=== PATIENT | male | born 1960 | race Caucasian/White ===

== ENCOUNTER 2021-03-11 08:38 | Outpatient (REF) | payer OTHER, SELFPAY ==
[2021-03-11 11:06] LABS: Glucose Urine UA NEG (NEG); Leukocyte Esterase Urine NEG (NEG); Nitrite Urine NEG (NEG); Urine Blood NEG (NEG); Urine Ketones NEG (NEG); Urine Protein NEG (NEG-TRACE)
[2021-03-11 11:17] LABS: Alanine Aminotransferase 19 U/L (0-40); Albumin Level 4.3 g/dL (3.5-5.0); Alkaline Phosphatase 42 U/L (39-117); Anion Gap 13 (12-20); Appearance Urine CLEAR; Aspartate Amino Transferase 18 U/L (5-37); Bilirubin Total 0.7 mg/dL (0.0-1.0); Blood Urea Nitrogen 18 mg/dL (9-16); Calcium 9.1 mg/dL (8.4-10.2); Carbon Dioxide 28 mmol/L (22-29); Chloride 103 mmol/L (96-108); Cholesterol 152 mg/dL; Color Urine YELLOW; Estimated Glomerular Filt Rate > 60; Glucose Fasting 103 mg/dL (60-99); HDL Cholesterol 40 mg/dL; LDL Cholesterol Calculated 79 mg/dl; Potassium 4.7 mmol/L (3.3-5.1); Sodium 139 mmol/L (135-145); Total Protein 6.6 g/dL (6.5-8.0); Triglycerides 166 mg/dL
[2021-03-11 11:46] LABS: TSH reflex Free T4 1.25 uIU/mL (0.32-4.0)
[2021-03-11 12:34] LABS: Prostate Specific Antigen Scr 0.25 ng/mL (<0.05-4.0)
== END 2021-03-11 08:39 | disposition home or self-care (01) ==
LOC: HO.WFDLDS 08:38
PROVIDERS: Visit Provider Family Medicine
DX: Z00.00 Encounter for general adult medical examination without abnormal findings (principal); Z12.5 Encounter for screening for malignant neoplasm of prostate; I10 Essential (primary) hypertension
CPT/HCPCS: 36415; 80053; 80061; 81003; 82043; 84153; 84443

== ENCOUNTER 2021-07-08 07:34 | Outpatient (REF) | payer OTHER, SELFPAY ==
[2021-07-08 12:05] LABS: Anion Gap 12 (12-20); Blood Urea Nitrogen 11 mg/dL (9-16); Calcium 9.2 mg/dL (8.4-10.2); Carbon Dioxide 26 mmol/L (22-29); Chloride 105 mmol/L (96-108); Cholesterol 138 mg/dL; Estimated Glomerular Filt Rate > 60; Glucose Fasting 109 mg/dL (60-99); HDL Cholesterol 33 mg/dL; LDL Cholesterol Calculated 85 mg/dl; Potassium 4.4 mmol/L (3.3-5.1); Sodium 139 mmol/L (135-145); Triglycerides 104 mg/dL
== END 2021-07-08 07:35 | disposition home or self-care (01) ==
LOC: HO.WFDLDS 07:34
PROVIDERS: Visit Provider Family Medicine
DX: E78.5 Hyperlipidemia, unspecified (principal); R73.01 Impaired fasting glucose
CPT/HCPCS: 36415; 80048; 80061

== ENCOUNTER 2022-01-21 07:40 | Outpatient (REF) | payer OTHER, SELFPAY ==
[2022-01-21 11:46] LABS: Alanine Aminotransferase 18 U/L (0-40); Albumin Level 4.1 g/dL (3.5-5.0); Alkaline Phosphatase 40 U/L (39-117); Anion Gap 11 (12-20); Aspartate Amino Transferase 16 U/L (5-37); Bilirubin Total 0.4 mg/dL (0.0-1.0); Blood Urea Nitrogen 14 mg/dL (9-16); Carbon Dioxide 25 mmol/L (22-29); Chloride 106 mmol/L (96-108); Cholesterol 138 mg/dL; Estimated Glomerular Filt Rate > 60; Glucose Random 114 mg/dL (60-115); HDL Cholesterol 37 mg/dL; LDL Cholesterol Calculated 85 mg/dl; Potassium 4.5 mmol/L (3.3-5.1); Sodium 137 mmol/L (135-145); Total Protein 6.6 g/dL (6.5-8.0); Triglycerides 81 mg/dL
[2022-01-21 12:00] LABS: Estimated Average Glucose 111 mg/dL; Hemoglobin A1C 137.0752 umol/L; Hemoglobin A1c % 5.5 %
== END 2022-01-21 07:41 | disposition home or self-care (01) ==
LOC: HO.WFDLDS 07:40
PROVIDERS: Visit Provider Family Medicine
DX: Z00.00 Encounter for general adult medical examination without abnormal findings (principal); E78.1 Pure hyperglyceridemia; E78.5 Hyperlipidemia, unspecified; R73.01 Impaired fasting glucose
CPT/HCPCS: 36415; 80053; 80061; 83036

== ENCOUNTER 2022-06-05 15:44 | Outpatient (REF) | payer OTHER, SELFPAY ==
[2022-06-05 18:00] LABS: Appearance Urine Clear; Color Urine Yellow; Glucose Urine UA Negative (Negative); Leukocyte Esterase Urine Negative (Negative); Nitrite Urine Negative (Negative); PH 6.5 (5.0-9.0); Specific Gravity - Urine 1.015 (1.005-1.025); Urine Blood Negative (Negative); Urine Ketones Negative (Negative); Urine Protein Negative (Neg-Trace)
== END 2022-06-05 15:45 | disposition home or self-care (01) ==
LOC: HO.LAB 15:44
PROVIDERS: Visit Provider Family Medicine
DX: Z00.00 Encounter for general adult medical examination without abnormal findings (principal); R30.0 Dysuria; R35.0 Frequency of micturition
CPT/HCPCS: 81003; 87086

== ENCOUNTER 2022-10-20 10:12 | Outpatient (REF) | payer OTHER, SELFPAY ==
[2022-10-20 11:14] LABS: MANUAL DIFF FLAG NO
[2022-10-20 11:44] LABS: Basophils Absolute Auto 0.1 X10*3/uL (0.0-0.2); Basophils Percent Auto 0.9 % (0-2); Eosinophils Absolute Auto 0.1 X10*3/uL (0.0-0.4); Eosinophils Percent Auto 1.4 % (0-4); Hematocrit 43.4 % (42.0-52.0); Hemoglobin 14.5 g/dl (14.0-18.0); Imm Gran Abs Auto 0.01 X10*3/uL (0.00-0.03); Imm Gran Pct Auto 0.2 % (0.0-0.4); Lymphocytes Absolute Auto 1.4 X10*3/uL (1.2-4.9); Lymphocytes Percent Auto 25.4 % (20-40); Mean Corpuscular HGB Conc 33.4 g/dl (31.0-36.0); Mean Corpuscular Hemoglobin 30.1 pg (27.0-33.0); Mean Corpuscular Volume 90.2 fL (80.0-98.0); Mean Platelet Volume 11.1 fL (9.4-12.4); Monocytes Absolute Auto 0.4 X10*3/uL (0.1-1.2); Monocytes Percent Auto 6.9 % (2-11); Neutrophils Absolute Auto 3.7 x10*3/uL (2.0-8.3); Neutrophils Percent Auto 65.2 % (45-73); Platelet Count 206 X10*3/uL (160-400); Red Blood Count 4.81 X10*6/uL (4.60-5.80); Red Cell Distribution Width 12.5 % (11.0-16.0); White Blood Count 5.6 X10*3/uL (4.8-10.8)
[2022-10-20 12:19] LABS: Alanine Aminotransferase 30 U/L (0-40); Albumin Level 4.3 g/dL (3.5-5.0); Alkaline Phosphatase 42 U/L (39-117); Anion Gap 12 (12-20); Aspartate Amino Transferase 20 U/L (5-37); Bilirubin Total 0.4 mg/dL (0.0-1.0); Blood Urea Nitrogen 13 mg/dL (9-16); Calcium 9.3 mg/dL (8.4-10.2); Carbon Dioxide 28 mmol/L (22-29); Chloride 103 mmol/L (96-108); Cholesterol 175 mg/dL; Estimated Glomerular Filt Rate > 60; Glucose Fasting 94 mg/dL (60-99); HDL Cholesterol 39 mg/dL; LDL Cholesterol Calculated 101 mg/dl; Potassium 4.1 mmol/L (3.3-5.1); Sodium 139 mmol/L (135-145); Total Protein 6.6 g/dL (6.5-8.0); Triglycerides 178 mg/dL
[2022-10-20 12:20] LABS: Prostate Specific Antigen Scr 0.63 ng/mL (<0.05-4.0); TSH reflex Free T4 1.53 uIU/mL (0.32-4.0)
[2022-10-20 15:02] LABS: Creatinine Urine 76.21 mg/dL; Microalbum/Creatinine Ratio Ur 7.8 ug/mg cr
== END 2022-10-20 10:13 | disposition home or self-care (01) ==
LOC: HO.WFDLDS 10:12
PROVIDERS: Visit Provider Family Medicine
DX: Z00.00 Encounter for general adult medical examination without abnormal findings (principal); Z12.5 Encounter for screening for malignant neoplasm of prostate; I10 Essential (primary) hypertension
CPT/HCPCS: 36415; 80053; 80061; 82043; 84153; 84443; 85025

== ENCOUNTER 2023-02-25 08:20 | Outpatient (REF) | payer OTHER, SELFPAY ==
[2023-02-25 11:17] LABS: MANUAL DIFF FLAG NO
[2023-02-25 11:43] LABS: Basophils Percent Auto 0.7 % (0-2); Eosinophils Absolute Auto 0.1 X10*3/uL (0.0-0.4); Eosinophils Percent Auto 2.1 % (0-4); Hematocrit 40.6 % (42.0-52.0); Hemoglobin 13.4 g/dl (14.0-18.0); Imm Gran Abs Auto 0.01 X10*3/uL (0.00-0.03); Imm Gran Pct Auto 0.2 % (0.0-0.4); Lymphocytes Absolute Auto 1.4 X10*3/uL (1.2-4.9); Mean Corpuscular Hemoglobin 30.5 pg (27.0-33.0); Mean Corpuscular Volume 92.5 fL (80.0-98.0); Mean Platelet Volume 11.4 fL (9.4-12.4); Monocytes Absolute Auto 0.5 X10*3/uL (0.1-1.2); Monocytes Percent Auto 9.4 % (2-11); Neutrophils Absolute Auto 3.7 x10*3/uL (2.0-8.3); Neutrophils Percent Auto 63.6 % (45-73); Platelet Count 205 X10*3/uL (160-400); Red Blood Count 4.39 X10*6/uL (4.60-5.80); Red Cell Distribution Width 12.5 % (11.0-16.0); White Blood Count 5.7 X10*3/uL (4.8-10.8)
[2023-02-25 12:06] LABS: Anion Gap 11 (12-20); Blood Urea Nitrogen 13 mg/dL (9-16); Calcium 9.2 mg/dL (8.4-10.2); Carbon Dioxide 27 mmol/L (22-29); Chloride 106 mmol/L (96-108); Estimated Glomerular Filt Rate > 60; Glucose Random 118 mg/dL (60-115); Potassium 3.7 mmol/L (3.3-5.1); Sodium 140 mmol/L (135-145)
== END 2023-02-25 08:21 | disposition home or self-care (01) ==
LOC: HO.WFDLDS 08:20
PROVIDERS: Visit Provider Nurse Practitioner Family
DX: K92.1 Melena (principal); R10.9 Unspecified abdominal pain
CPT/HCPCS: 36415; 80048; 85025

== ENCOUNTER 2023-03-03 07:48 | Outpatient (REF) | payer OTHER, SELFPAY ==
[2023-03-03 11:38] LABS: Hematocrit 42.1 % (42.0-52.0); Mean Corpuscular HGB Conc 33.3 g/dl (31.0-36.0); Mean Corpuscular Hemoglobin 30.4 pg (27.0-33.0); Mean Corpuscular Volume 91.5 fL (80.0-98.0); Platelet Count 215 X10*3/uL (160-400); Red Cell Distribution Width 12.7 % (11.0-16.0); White Blood Count 5.7 X10*3/uL (4.8-10.8)
== END 2023-03-03 07:49 | disposition home or self-care (01) ==
LOC: HO.WFDLDS 07:48
PROVIDERS: Visit Provider Nurse Practitioner Family
DX: K92.1 Melena (principal)
CPT/HCPCS: 36415; 85027

== ENCOUNTER → 2023-03-20 12:43 | Outpatient (BNVA) | payer OTHER, SELFPAY | PROVIDERS: PCP Family Medicine; Visit Provider Internal Medicine | DX: K92.1 Melena (principal) | CPT/HCPCS: 99202 ==

== ENCOUNTER 2023-04-21 07:37 | Outpatient (REF) | payer OTHER, SELFPAY ==
[2023-04-21 12:32] LABS: Appearance Urine Clear; Color Urine Dark Yellow; Glucose Urine UA Negative (Negative); Leukocyte Esterase Urine Negative (Negative); Nitrite Urine Negative (Negative); PH 7.5 (5.0-9.0); Urine Blood Negative (Negative); Urine Ketones Negative (Negative); Urine Protein Negative (Neg-Trace)
[2023-04-21 12:47] LABS: Alanine Aminotransferase 21 U/L (0-40); Albumin Level 4.1 g/dL (3.5-5.0); Alkaline Phosphatase 38 U/L (39-117); Anion Gap 12 (12-20); Aspartate Amino Transferase 19 U/L (5-37); Bilirubin Total 0.3 mg/dL (0.0-1.0); Blood Urea Nitrogen 13 mg/dL (9-16); Calcium 9.5 mg/dL (8.4-10.2); Carbon Dioxide 26 mmol/L (22-29); Chloride 103 mmol/L (96-108); Estimated Glomerular Filt Rate > 60; Glucose Fasting 109 mg/dL (60-99); Sodium 137 mmol/L (135-145); Total Protein 6.9 g/dL (6.5-8.0)
[2023-04-21 12:59] LABS: Prostate Specific Antigen Scr 0.25 ng/mL (<0.05-4.0)
[2023-04-21 13:02] LABS: TSH reflex Free T4 1.99 uIU/mL (0.32-4.0)
== END 2023-04-21 07:38 | disposition home or self-care (01) ==
LOC: HO.WFDLDS 07:37
PROVIDERS: Visit Provider Family Medicine
DX: Z00.00 Encounter for general adult medical examination without abnormal findings (principal); Z12.5 Encounter for screening for malignant neoplasm of prostate
CPT/HCPCS: 36415; 80053; 81003; 84153; 84443

== ENCOUNTER 2023-04-22 15:53 | Outpatient (AMB) | payer OTHER, SELFPAY ==
[2023-04-22 15:59] VITALS: BP 140/78; PULSE 96; O2SAT 96; BMI 29.0
--- NOTE | 2023-04-22 15:59 | A.OFFPC_ITS ---
Vital Signs 04/22/23 15:59 Height 5 ft 10 in Weight 202 lb 6 oz BMI 29.0 BP 140/78 H Blood Pressure Location Lt brachial Position Sitting Pulse 96 Pulse Source Pulse Oximeter Pulse Oximetry (%) 96 Oxygen Delivery Method Room Air Intake Visit Reasons: Extended exam with f/u labs and health maint. Intake Note: Patient is here for a physical and to follow up on labs. Allergies No Known Allergies Allergy (Verified 04/22/23 16:02) Medication List - Last Reconciled 04/22/23 by Poncho Herbert MD clotrimazole 1% (Antifungal (clotrimazole)) 1 appl topical BID 2 weeks diclofenac sodium 1% (Voltaren Arthritis Pain) 2 grams topical QID lidocaine HCl-hydrocortison ac 3-0.5 % 1 appl DC BEDTIME lisinopril 5 mg PO DAILY 90 days naproxen 500 mg PO BID PRN 90 days omeprazole 20 mg PO DAILY 30 days polyethylene glycol 3350 (Miralax) 17 grams PO BID simvastatin 40 mg PO BEDTIME Tobacco use date assessed: 04/22/23 Dental Screening Dental Screen Date: 04/22/23 Did you have a dental visit in the last 12 months?: Yes Did you have a dental problem in the last 6 months where you did not have access to dental care?: No Was dental information given to patient?: No HPI Extended exam with f/u labs and health maint. HPI Details 63 y/o male presents for an extended exam with f/u labs and health maintenance. Labs were drawn 04/21/23. Reviewed labs with pt. Elevated fasting glucose of 109. Last A1c 01/21/22 was 5.5%. PSA fine. TSH levels are fine. Pt reports he has improved his diet and has been walking more for exercise. HPI Comments History of Present Illness Details Documentation assistance for Poncho Herbert MD, was provided by Christiano Pantoja, Social Media Marketing Specialist on 04/22/2023 4:45 PM MONIQUE. I, Dr. Herbert, have read, observed, and verified documentation. [facility] Surgical History H/O colonoscopy History of back surgery History of hernia surgery History of knee surgery History of surgery on arm Family History Father No problems noted. Mother No problems noted. 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 Mina Conway, Jayde Streeter, Celso Johnson and colleagues, with an educational margarita from [employer]. Review of Systems Const Denies chills, Denies fatigue, Denies fever(s), Denies headache(s) and Denies weakness Eyes Denies change in vision ENT Denies dizziness, Denies headache(s), Denies hearing loss, Denies nasal congestion, Denies sinus pain, Denies sinus pressure and Denies sore throat Card Denies chest pain, Denies lightheadedness, Denies dyspnea and Denies other (palpitations) Resp Denies cough, Denies dyspnea and Denies wheezing GI Denies abdominal pain, Denies melena, Denies hematochezia, Denies change in bowel habits, Denies dyspepsia and Denies nausea Denies hematuria and Denies dysuria Musc Denies abnormal gait, Denies myalgias, Denies arthralgias, Denies numbness and Denies tingling Skin/Breast Denies rash, Denies unusual bruising and Denies wounds Neuro Denies abnormal gait, Denies dizziness, Denies headache(s), Denies memory loss, Denies numbness, Denies Sensory deficit (Neuro), Denies tingling and Denies weakness Psych Denies anxiety, Denies depression and Denies memory loss Endo Denies cold intolerance, Denies fatigue, Denies heat intolerance, Denies polydi psia and Denies polyuria Alexandre/Lymph Denies easy bleeding and Denies easy bruising Aller/Immun Denies wheezing Physical exam (Primary Care) Vital Signs: Last Vital Signs Pulse 96 04/22/23 15:59 BP 140/78 H 04/22/23 15:59 Pulse Ox 96 04/22/23 15:59 Oxygen Delivery Method Room Air 04/22/23 15:59 BMI result Body Mass Index 29.0 Tobacco/Smoking Status: Tobacco use Status Tobacco use date assessed 04/22/23 04/22/23 16:04 Patient Tobacco Use Status Former Tobacco user 04/22/23 16:01 e-Cigarette/Vaping Use Never Used 04/22/23 16:01 Thrive Assessment: Date of Thrive Assessment Date Thrive assessed 10/23/22 04/22/23 16:01 Const General: no acute distress, well developed, alert and awake Nutritional Appearance: well nourished Orientation/consciousness: patient oriented x3 HENMT Head: Yes normocephalic and Yes atraumatic Ears: hearing grossly normal bilaterally and TM's normal bilaterally General nose exam: Normal external nose present and Normal nares present Mouth: Normal oral and palatal mucosa present and moist mucous membranes Teeth and gingiva: dentition normal Throat: Yes posterior oropharynx normal Eyes General: appearance normal, both eyes and all related structures Pupils: Equal, round and reactive pupils present and Pupil accommodation reflex normal EOM: EOMs intact bilaterally Neck Neck: Yes normal visual inspection, Yes no lymphadenopathy and Yes trachea midline Thyroid: Thyroid normal Carotids: no bruits Lymphatic: no lymphadenopathy noted Chest Chest palpation & inspection: normal inspection of the chest Resp Effort & Inspection: normal respiratory effort Auscultation: clear to auscultation bilaterally Cardio Rate: regular rate Rhythm: regular rhythm Heart sounds: S1 normal heart sound present, S2 normal heart sound present, no gallops, no murmurs and no rubs Bruits: no abdominal aortic bruits and no carotid bruits GI Palpation (GI): No Abdominal aortic bruit present, Soft to palpation, nontender, No hepatosplenomegaly present and No Rebound tenderness present Auscultation: normal bowel sounds General: Yes no CVA tenderness Back/Spine/Pelvis Back: no CVA tenderness Cervical Spine: cervical ROM normal and No Cervical spine tenderness Thoracic/Lumbar Spine: thoraco-lumbar ROM normal, No pain with thoraco-lumbar ROM, No thoracic spinal tenderness and No lumbar spinal tenderness Skin Lesions: no lesions Rashes: no rashes Trauma: no lacerations or abrasions Wounds: no wounds Nails: normal Neuro General: patient oriented x3 Cranial nerves: Yes Equal, round and reactive pupils present Cognition (Neuro): normal cognition Gait exam (Neuro): Normal gait present Motor exam (neuro): 5/5 motor strength present throughout Sensory Exam: No Sensory deficit (Neuro) Deep tendon reflexes (DTR's): Right patellar reflex intensity grade: 2+ and Left patellar reflex intensity grade: 2+ Extrem General: Yes normal to inspection and No edema Psych Appearance: grossly normal Affect: normal affect Attitude: cooperative Thought process: Normal thought process present Assessment and Plan Assessment & Plan (1) Annual physical exam: Code(s): Z00.00 - Encounter for general adult medical examination without abnormal findings Plan: 63-year-old male presents for complete physical exam Encouraged a healthy diet with active lifestyle and plenty of exercise (2) Essential hypertension: Code(s): I10 - Essential (primary) hypertension Plan: Blood pressures have been elevated. Goal is less than 140/90 Increase lisinopril from 5 mg daily to 10 mg daily Encouraged ongoing weight loss and exercise. Encouraged salt/sodium avoidance (3) Screening for prostate cancer: Code(s): Z12.5 - Encounter for screening for malignant neoplasm of prostate Plan: PSA was within normal limits (4) Elevated fasting blood sugar: Code(s): R73.01 - Impaired fasting glucose Plan: A1c 5.6% is at top normal range. Strong family history of diabetes Continue to work at a diet lower in sugars and starches. Continue weight loss and exercise Will follow (5) Screening for colon cancer: Code(s): Z12.11 - Encounter for screening for malignant neoplasm of colon Plan: Followed by Gastroenterology, Dr. Sims Medications: Changed From lisinopril 5 mg PO DAILY 90 tabs 3RF 90 days To lisinopril 10 mg PO DAILY 90 tabs 3RF 90 days From diclofenac sodium 1% (Voltaren Arthritis Pain) apply to single elbow, wrist or hand; for hand includes palm/fingers/back of hand 2 grams topical QID To diclofenac sodium 1% (Voltaren Arthritis Pain) apply to single elbow, wrist or hand; for hand includes palm/fingers/back of hand 2 grams topical QID 200 grams 3RF 30 days Refilled clotrimazole 1% (Antifungal (clotrimazole)) 1 appl topical BID 60 grams 2RF 2 weeks Coding Level of Care Code Est Pt Level 4 (99093) Diagnoses Annual physical exam Z00.00 Essential hypertension I10 Screening for prostate cancer Z12.5 Elevated fasting blood sugar R73.01 Screening for colon cancer Z12.11
== END 2023-04-22 16:58 | disposition home or self-care (01) ==
PROVIDERS: Visit Provider Family Medicine
DX: Z00.00 Encounter for general adult medical examination without abnormal findings (principal); I10 Essential (primary) hypertension; Z12.5 Encounter for screening for malignant neoplasm of prostate; R73.01 Impaired fasting glucose; Z12.11 Encounter for screening for malignant neoplasm of colon
CPT/HCPCS: 99396

== ENCOUNTER 2023-05-19 11:07 | Outpatient (AMB) | payer OTHER, SELFPAY ==
[2023-05-19 11:21] VITALS: BP 162/86; BMI 28.5
--- NOTE | 2023-05-19 11:21 | A.OFFVIS_ITS ---
Intake Vital Signs 05/19/23 11:21 Height 5 ft 10 in Weight 198 lb 13.711 oz BMI 28.5 BP 162/86 H Blood Pressure Location Lt brachial Position Sitting Intake Visit Reasons: 4 week fu Intake Note: Patient presents to in office visit today in follow up of melena and abdominal pain. CC: Patient reports the abdominal pain and rectal bleeding subsided about 2 weeks ago. Denies any new GI symptoms or concerns today. Manager State Required: No Allergies No Known Allergies Allergy (Verified 05/19/23 11:24) HPI HPI Comments History of Present Illness Details 62 y.o M with no significant PMH who has been referred to our office for rectal bleeding. 03/20/23: Reports rectal bleeding started last month out of nowhere. Knew had hemorrhoid flare up - which he describes as swollen tissue that prolapses occasionally and is a bit uncomfortable while defecation. BM itself is brown but often has some blood on top. Last colo was around 2019. Pt thinks at [facility]. No polyps but was asked to return in 5years due to possible hx of advanced polyps in mother. Pt reports his mom had a partial colon resection but hes unsure if that was done for diverticulitis or large polyps. Had lower abd cramping for a couple of days which has since resolved. His only w orry is that his hemorrhoids have never bled for this long. CBC from 2 weeks was normal. 05/19/23: Sx compeletely resolved within a week of improving hydration + fiber and starting topical hydrocort. Has not had any bleeding or rectal discomfort in the last 3 weeks. Records from [facility] reviewed - MRI 2018 with liver cysts including a 2.1 cm septated cyst in R liver lobe. PFSH Surgical History H/O colonoscopy History of back surgery History of hernia surgery History of knee surgery History of surgery on arm Family History Father No problems noted. Mother No problems noted. 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) Current occupational exposures/hazards: No Cognitive needs: No Hearing needs: No Vision needs: No Review of Systems Const All systems reviewed & are unremarkable except as noted in HPI and below Physical Exam Vital Signs: Last Vital Signs BP 162/86 H 05/19/23 11:21 BMI result Body Mass Index 28.5 Gen appear: NAD HEENT: nonicteric, no cervical lymphadenopathy Chest: CTA CVS: Regular S1/S2 Abd: soft, nontender, nondistended, bowel sounds + Ext: no peripheral edema Neuro: A/Ox3, noted to move all extremities spontaneously Psych: interacting appropriately Assessment & Plan Assessment & Plan (1) Blood in stool: Code(s): K92.1 - Melena (2) Liver cyst: Code(s): K76.89 - Other specified diseases of liver Plan Clinical presentation and assessment most consistent with hemorrhoidal bleeding that has resolved with topical hydrocort application, and avoiding constipation. Due for colo for hx of polyps in 2023 per his report. Will obtain records from [facility]. He was also reminded that he is due for surveillance imaging for septated liver cyst noted in 2018 (incidental finding, pt remains asymptomatic) Recommendation: - Obtain prev colo records from [facility], will call pt if actionable finding otherwise colo in 2023 - MRI Abd liver protocol ordered - Follow up in 6 months Coding Level of Care Code Est Pt Level 4 (65852) Diagnoses Blood in stool K92.1 Liver cyst K76.89
== END 2023-05-19 11:56 | disposition home or self-care (01) ==
PROVIDERS: PCP Family Medicine; Visit Provider Internal Medicine
DX: K92.1 Melena (principal); K76.89 Other specified diseases of liver
CPT/HCPCS: 99214

== ENCOUNTER → 2023-05-19 11:07 | Outpatient (BNVA) | payer OTHER, SELFPAY | PROVIDERS: PCP Family Medicine; Visit Provider Internal Medicine | DX: K92.1 Melena (principal); K76.89 Other specified diseases of liver | CPT/HCPCS: 99212 ==

== ENCOUNTER 2023-06-08 15:51 | Outpatient (REF) | payer OTHER, SELFPAY ==
--- NOTE | ~2023-06-08 | MR_ITS ---
EXAMINATION: MR ABDOMEN WITHOUT AND WITH CONTRAST CLINICAL INFORMATION: Liver disease. COMPARISON: None available. TECHNIQUE: MR abdomen was performed without and with use of 10 mL intravenous Gadavist gadolinium contrast. Postcontrast images are performed in multiphase dynamic sequences. Imaging was performed in 3 planes. FINDINGS: LUNG BASES: No pleural or pericardial effusion. LIVER, GALLBLADDER, AND BILIARY TREE: The liver is normal in size and contour. Hepatic steatosis. There are multiple T2 hyperintense T1 hypointense foci scattered throughout the hepatic parenchyma with the largest measuring 1.7 cm and the left hepatic lobe and 2.0 cm in the right hepatic lobe. No significant postcontrast enhancement. No further imaging follow-up is needed. The common duct measures 4 mm at the dayana hepatis. No biliary ductal dilatation is present. The gallbladder is unremarkable with no evidence of gallbladder wall thickening, or obvious pericholecystic inflammatory changes. PANCREAS: No ductal dilatation. SPLEEN: Not enlarged. ADRENAL GLANDS: No adrenal mass. KIDNEYS AND URETERS: The kidneys are symmetric in size and enhancement. No hydronephrosis. No perinephric stranding. GASTROINTESTINAL TRACT: No bowel obstruction. No ascites or fluid collection. LYMPH NODES: No bulky abdominal lymphadenopathy. VASCULAR: Normal caliber abdominal aorta. MR/MR abdomen wo/w con IMPRESSION: Hepatic steatosis.
[2023-06-08] MEDS: gadobutroL 10 ML VIAL IVPUSH (16:58)
== END 2023-06-08 15:52 | disposition home or self-care (01) ==
LOC: HO.MRI 15:51
PROVIDERS: PCP Family Medicine; Visit Provider Internal Medicine
DX: K76.89 Other specified diseases of liver (principal); N28.1 Cyst of kidney, acquired
CPT/HCPCS: 74183; A9585

== ENCOUNTER 2023-10-01 09:12 | Outpatient (REF) | payer OTHER, SELFPAY ==
[2023-10-01 12:15] LABS: Estimated Average Glucose 105 mg/dL; Hemoglobin A1c % 5.3 % (<6.0)
[2023-10-01 13:01] LABS: Creatinine Urine 200.88 mg/dL; Microalbum/Creatinine Ratio Ur 6.4 ug/mg cr (<30)
[2023-10-01 13:03] LABS: Alanine Aminotransferase 16 U/L (0-40); Albumin Level 4.2 g/dL (3.5-5.0); Alkaline Phosphatase 37 U/L (39-117); Anion Gap 11 (12-20); Aspartate Amino Transferase 18 U/L (5-37); Bilirubin Total 0.4 mg/dL (0.0-1.0); Blood Urea Nitrogen 14 mg/dL (9-16); Calcium 8.9 mg/dL (8.4-10.2); Carbon Dioxide 25 mmol/L (22-29); Chloride 106 mmol/L (96-108); Estimated Glomerular Filt Rate > 60; Glucose Fasting 112 mg/dL (60-99); Potassium 3.4 mmol/L (3.3-5.1); Sodium 139 mmol/L (135-145)
== END 2023-10-01 09:13 | disposition home or self-care (01) ==
LOC: HO.WFDLDS 09:12
PROVIDERS: Visit Provider Family Medicine
DX: Z00.00 Encounter for general adult medical examination without abnormal findings (principal); I10 Essential (primary) hypertension; R73.01 Impaired fasting glucose
CPT/HCPCS: 36415; 80053; 82043; 82570; 83036

== ENCOUNTER 2023-10-06 11:17 | Outpatient (AMB) | payer OTHER, SELFPAY ==
[2023-10-06 11:26] VITALS: BP 142/78; PULSE 90; O2SAT 97; BMI 28.6
--- NOTE | 2023-10-06 11:26 | A.OFFPC_ITS ---
Vital Signs 10/06/23 11:26 Height 5 ft 10 in Weight 199 lb 6 oz BMI 28.6 BP 142/78 H Blood Pressure Location Lt brachial Position Sitting Pulse 90 Pulse Source Pulse Oximeter Pulse Oximetry (%) 97 Oxygen Delivery Method Room Air Intake Visit Reasons: FUP HTN+ NEEDS DEAN9 Shankar/ INTERPRETATION Intake Note: Patient is here for follow up on hypertension. Patient needs referral for orthopedic surgeon for right knee. Allergies No Known Allergies Allergy (Verified 10/06/23 11:30) Tobacco use date assessed: 10/06/23 Dental Screening Dental Screen Date: 10/06/23 Did you have a dental visit in the last 12 months?: Yes Did you have a dental problem in the last 6 months where you did not have access to dental care?: No Was dental information given to patient?: Patient has dentist HPI FUP HTN+ NEEDS DEAN9 Shankar/ INTERPRETATION HPI Details 63 y/o male presents to f/u hypertension . Blood pressure today 142/78. He is on lisinopril 10mg daily. Pt has complaints of R knee pain and is requesting referral for an orthopedic surgeon. Pt reports hx of osteoarthritis and last x-ray was 4-5 years ago. Pt reports some fatigue. PFSH Surgical History H/O colonoscopy History of surgery on arm History of hernia surgery History of knee surgery History of back surgery Family History Father No problems noted. Mother No problems noted. 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 1. Little interest or pleasure in doing things: not at all 2. Feeling down, depressed, or hopeless: not at all 3. Trouble falling or staying asleep, or sleeping too much: not at all 4. Feeling tired or having little energy: not at all 5. Poor appetite or overeating: not at all 6. Feeling bad about yourself - or that you are a failure or have let yourself or your family down: not at all 7. Trouble concentrating on things, such as reading the newspaper or watching television: not at all 8. Moving or speaking so slowly that other people could have noticed. Or the opposite - being so fidgety or restless that you have been moving around a lot more than usual: not at all 9. Thoughts that you would be better off or of hurting yourself in some way: not at all Total score: 0 Depression Screening Interpretation: Negative Depression Screening Done: Yes 50941 - PHQ-9 Billing: Yes Source: Developed by Drs. Mina Conway, Jayde Streeter, Celso Johnson and colleagues, with an educational margarita from [email or web address]. Thrive Questionnaire Date Thrive assessed: 10/23/22 JAMARI-7 AMB Questionnaire JAMARI-7 Date JAMARI - 7 assessed: 10/23/22 Source: Developed by Drs. Mina Conway, Jayde Streeter, Celso Johnson and colleagues, with an educational margarita from [email or web address]. Review of Systems Const Reports fatigue Endo Reports fatigue Physical exam (Primary Care) Vital Signs: Last Vital Signs Pulse 90 10/06/23 11:26 BP 142/78 H 10/06/23 11:26 Pulse Ox 97 10/06/23 11:26 Oxygen Delivery Method Room Air 10/06/23 11:26 BMI result Body Mass Index 28.6 Tobacco/Smoking Status: Tobacco use Status Tobacco use date assessed 10/06/23 10/06/23 11:37 Patient Tobacco Use Status Former Tobacco user 10/06/23 11:37 e-Cigarette/Vaping Use Never Used 10/06/23 11:37 PHQ-9: PHQ-9 Score PHQ-9: Total score 0 10/06/23 11:37 Depression Screening Interpretation: Negative Thrive Assessment: Date of Thrive Assessment Date Thrive assessed 10/23/22 10/06/23 11:37 Extrem Other: R knee swelling, effusion and pain No redness, no warmth Assessment and Plan Assessment & Plan (1) Essential hypertension: Code(s): I10 - Essential (primary) hypertension Plan: Blood?pressure?is?still?above?goal?of?less?than?140/90 Changing?lisinopril?10?mg?daily?to?lisinopril- hydrochlorothiazide?10/12.5?mg?daily Continue?to?work?at?weight?loss Watch?salt/sodium (2) Right knee pain: Code(s): M25.561 - Pain in right knee Plan: Right?knee?pain?and?effusion?without?excess?warmth?or?redness. He?notes?a?history?of?osteoarthritis?and?injection?therapy?which?had?helped. Referred?to?orthopedics?at?[facility] X-rays?ordered Continue?Voltaren?gel?and?can?use?naproxen?as?tolerated (3) Fatigue: Code(s): R53.83 - Other fatigue Orders: Orders XR knee RT 3V Today M25.561 - Pain in right knee Comprehensive [place]. Panel Fast Today R53.83 - Other fatigue, Z00.00 - Encounter for general adult medical examination without abnormal findings Testosterone, Free/Total Today R53.83 - Other fatigue TSH reflex Free T4 Today R53.83 - Other fatigue, Z00.00 - Encounter for general adult medical examination without abnormal findings Referrals Orthopedics Referral M25.561 - Pain in right knee Medications: New lisinopril-hydrochlorothiazide 10-12.5 mg 1 tab PO DAILY 30 days 30 tabs 2RF Refilled diclofenac sodium 1% (Voltaren Arthritis Pain) apply to single elbow, wrist or hand; for hand includes palm/fingers/back of hand 2 grams topical QID 30 days 200 grams 3RF naproxen 500 mg PO BID 90 days PRN 180 tabs 1RF pain Discontinued lisinopril Discontinued Reason: Doctor's Order 10 mg PO DAILY 90 days 90 tabs 3RF Coding Level of Care Code Est Pt Level 4 (89811) Diagnoses Essential hypertension I10 Right knee pain M25.561 Fatigue R53.83
== END 2023-10-06 12:07 | disposition home or self-care (01) ==
PROVIDERS: PCP Family Medicine; Visit Provider Family Medicine
DX: I10 Essential (primary) hypertension (principal); M25.561 Pain in right knee; R53.83 Other fatigue
CPT/HCPCS: 99214

== ENCOUNTER 2023-10-13 15:32 | Outpatient (REF) | payer OTHER, SELFPAY | END 2023-10-13 15:33 | disposition home or self-care (01) | LOC: HO.HOSX 15:32 | PROVIDERS: Visit Provider Orthopaedic Surgery | DX: Z13.89 Encounter for screening for other disorder (principal) ==

== ENCOUNTER 2023-10-14 09:54 | Outpatient (REF) | payer OTHER, SELFPAY ==
--- NOTE | ~2023-10-14 | XR_ITS ---
EXAMINATION: XR KNEE, RIGHT CLINICAL INFORMATION: Reason for Exam M25.561 - Pain in right knee COMPARISON: None TECHNIQUE: 3 views of the knee FINDINGS: No acute fracture or dislocation. Moderate osteoarthritis of the knee with loss of medial joint space and bulky medial and patellofemoral compartment osteophytes. Quadriceps tendon enthesopathy. Valgus angulation of the knee. No joint effusion. Soft tissues are unremarkable. XR/XR knee RT 3V IMPRESSION: * No acute osseous abnormality. * Moderate degenerative changes of the knee. Valgus angulation of the knee.
== END 2023-10-14 09:55 | disposition home or self-care (01) ==
LOC: HO.XRAY 09:54
PROVIDERS: PCP Family Medicine; Visit Provider Family Medicine
DX: M25.561 Pain in right knee (principal)
CPT/HCPCS: 73562; 99202

== ENCOUNTER 2023-10-14 14:42 | Outpatient (AMB) | payer OTHER, SELFPAY ==
--- NOTE | 2023-10-14 14:43 | MHC.OFFVIS ---
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 The patient did undergo right knee arthroscopic surgery in the past. He got fairly good relief from that surgery initially. Over the last few years has had both cortisone injections and viscosupplementation injections. He got minimal relief from the cortisone injections but fairly good relief from the viscosupplementation injections. He has tried Tylenol and anti-inflammatory medicines which gave him minimal relief. He has also done physical therapy exercises which aggravated his pain. He wishes to hold off on total knee replacement surgery for as long as possible. Allergies No Known Allergies Allergy (Verified 10/14/23 14:50) Medication List - Last Reconciled 10/14/23 by Collin Wetzel MD clotrimazole 1% (Antifungal (clotrimazole)) 1 appl topical BID 2 weeks diclofenac sodium 1% (Voltaren Arthritis Pain) 2 grams topical QID 30 days lidocaine HCl-hydrocortison ac 3-0.5 % 1 appl RI BEDTIME lisinopril 5 mg PO DAILY lisinopril-hydrochlorothiazide 10-12.5 mg 1 tab PO DAILY 30 days naproxen 500 mg PO BID PRN 90 days omeprazole 20 mg PO DAILY 30 days polyethylene glycol 3350 (Miralax) 17 grams PO BID simvastatin 40 mg PO BEDTIME PFSH Surgical History History of surgery on right wrist (~1988) H/O colonoscopy History of surgery on arm History of hernia surgery History of knee surgery History of back surgery Family History Father No problems noted. Mother No problems noted. 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) Current occupational exposures/hazards: No Cognitive needs: No Hearing needs: No Vision needs: No Physical Exam Vital Signs: BMI result Body Mass Index 28.6 Const Other: Well-nourished well-developed very friendly male awake alert and oriented x3 in no acute distress Extrem Other: Bilateral lower extremity examination shows good capillary refill, no skin lesions noted, normal sensation light touch Right knee examination shows a minimal effusion, mild crepitus with range of motion, pain with range of motion, range of motion from -3 degrees to 115 degrees, no instability Results Reviewed Results Reviewed: X-rays of the patient's right knee show moderate joint space narrowing most significant in the medial compartment, subchondral sclerosis, no acute bony abnormalities Assessment & Plan Assessment & Plan (1) Right knee pain: Code(s): M25.561 - Pain in right knee Plan Mr. Mars presents with right knee pain due to degenerative joint disease. I had a lengthy discussion with the patient regarding the treatment options. He wishes to hold off on surgery for as long as possible. I agree with this plan. Has not gotten good relief from cortisone injections in the past. Thus, I will see whether or not his insurance company will cover a another viscosupplementation injection. I will see him back once the injection is available. Will follow-up as instructed. Feel free to call me at any time should questions regarding his orthopedic management arise. Thank you very much for asking me to see this very friendly gentleman. I spent 22 minutes in reviewing the patient's records and imaging studies, seeing the patient and documenting in the medical record. Orders: Orders XR knee RT 3V Today M25.561 - Pain in right knee Coding Level of Care Code New Pt Level 2 (30069) Diagnoses Right knee pain M25.561
[2023-10-14 14:44] VITALS: BMI 28.6
== END 2023-10-14 15:17 | disposition home or self-care (01) ==
PROVIDERS: PCP Family Medicine; Visit Provider Orthopaedic Surgery
DX: M25.561 Pain in right knee (principal)
CPT/HCPCS: 99202

== ENCOUNTER 2023-11-10 07:37 | Outpatient (AMB) | payer OTHER, SELFPAY ==
--- NOTE | 2023-11-10 07:53 | MHC.OFFVIS ---
Intake Vital Signs 11/10/23 07:54 Height 5 ft 10 in Weight 199 lb BMI 28.6 Intake Visit Reasons: Right knee # 1 euflexxa inj Intake Note: Yazan is a 63 year old Male who presents for his Right knee #1 Euflexxa gel injection. Patient reports his pain is worse and is having trouble sleeping. He would like to hold off on total knee replacement surgery for as long as possible. He has done physical therapy exercises which aggravated his pain. He has also tried Tylenol and anti-inflammatory medicines which gave him minimal relief. Allergies No Known Allergies Allergy (Verified 11/10/23 07:56) Medication List - Last Reconciled 11/10/23 by Collin Wetzel MD clotrimazole 1% (Antifungal (clotrimazole)) 1 appl topical BID 2 weeks diclofenac sodium 1% (Voltaren Arthritis Pain) 2 grams topical QID 30 days lidocaine HCl-hydrocortison ac 3-0.5 % 1 appl [place] BEDTIME lisinopril 5 mg PO DAILY lisinopril-hydrochlorothiazide 10-12.5 mg 1 tab PO DAILY 30 days naproxen 500 mg PO BID PRN 90 days omeprazole 20 mg PO DAILY 30 days polyethylene glycol 3350 (Miralax) 17 grams PO BID simvastatin 40 mg PO BEDTIME PFSH Surgical History History of surgery on right wrist (~1988) H/O colonoscopy History of surgery on arm History of hernia surgery History of knee surgery History of back surgery Family History Father No problems noted. Mother No problems noted. Sister Ovarian cancer Paternal Uncle Rectal cancer Maternal Grandmother Breast cancer Social History Housing: House Alcohol intake: current Alcohol intake frequency: holidays/special occasions only Alcohol type: other Patient Tobacco Use Status: Former Tobacco user Cigarettes Per Day: 40 Years Smoked: 12 e-Cigarette/Vaping Use: Never Used Second Hand Smoke Exposure: No service: No Current occupational status: other Current occupational exposures/hazards: No Cognitive needs: No Hearing needs: No Vision needs: No Physical Exam Vital Signs: BMI result Body Mass Index 28.6 Const Other: Well-nourished well-developed very friendly male awake alert and oriented x3 in no acute distress Extrem Other: Bilateral lower extremity examination shows good capillary refill, no skin lesions noted, normal sensation light touch Right knee examination shows a minimal effusion, palpable crepitus with range of motion, pain with range of motion, no instability Office Procedures Joint Injection/Drain Joint Injection/Drain Primary Site: right knee Prep: site was prepped using aseptic technique Injected: 20 mg of (Euflexxa viscosupplementation) and 1% plain lidocaine Procedure: The patient tolerated the procedure well Coding - Large joint Procedure code (CPT) selection complete Results Reviewed Results Reviewed: X-rays of the patient's right knee show joint space narrowing, subchondral sclerosis, no acute bony abnormalities Assessment & Plan Assessment & Plan (1) Arthritis of right knee: Code(s): M17.11 - Unilateral primary osteoarthritis, right knee Plan Mr. Mars presents with right knee pain due to degenerative joint disease. I had a lengthy discussion with the patient regarding the treatment options. He wishes to hold off on surgery for as long as possible. I agree with this plan. He has had cortisone injections in the past which gave him minimal relief. Thus, the risks and benefits of a series of Euflexxa viscosupplementation injections were discussed at length with the patient. The patient wished to proceed 1st injection. He tolerated the injection well. He will follow up next week as scheduled. Feel free to call me at any time should questions regarding his orthopedic arise. I spent 22 minutes in reviewing the patient's records and imaging studies, seeing the patient and documenting in the medical record. Orders: Orders AMB Joint Injection/Aspiration Today M17.11 - Unilateral primary osteoarthritis, right knee Coding Level of Care Code Est Pt Level 2 (65820) Diagnoses Arthritis of right knee M17.11 CPT Codes Coding - Large joint: 35894 - Large joint ([id number])
[2023-11-10 07:54] VITALS: BMI 28.6
== END 2023-11-10 08:10 | disposition home or self-care (01) ==
LOC: HO.HOS 07:38
PROVIDERS: PCP Family Medicine; Visit Provider Orthopaedic Surgery
DX: M17.11 Unilateral primary osteoarthritis, right knee (principal)
CPT/HCPCS: 20610

== ENCOUNTER → 2023-11-10 07:37 | Outpatient (BNVA) | payer OTHER, SELFPAY | PROVIDERS: PCP Family Medicine; Visit Provider Orthopaedic Surgery | DX: M17.11 Unilateral primary osteoarthritis, right knee (principal) | CPT/HCPCS: 20610 ==

== ENCOUNTER 2023-11-17 07:44 | Outpatient (AMB) | payer OTHER, SELFPAY ==
[2023-11-17 07:49] VITALS: BMI 28.6
--- NOTE | 2023-11-17 07:49 | A.OFFVIS_ITS ---
Intake Vital Signs 11/17/23 07:49 Height 5 ft 10 in Weight 199 lb BMI 28.6 Intake Visit Reasons: Right knee euflexxa #2 Intake Note: Yazan is a 63 year old male who present for his Right knee #2 Euflexxa gel injection. Patient reports still having a bit of pain from his last injection. He denies any fevers or chills. He continues with his home stretching program. Allergies No Known Allergies Allergy (Verified 11/17/23 07:50) Medication List - Last Reconciled 11/17/23 by Collin Wetzel MD clotrimazole 1% (Antifungal (clotrimazole)) 1 appl topical BID 2 weeks diclofenac sodium 1% (Voltaren Arthritis Pain) 2 grams topical QID 30 days lidocaine HCl-hydrocortison ac 3-0.5 % 1 appl [place] BEDTIME lisinopril 5 mg PO DAILY lisinopril-hydrochlorothiazide 10-12.5 mg 1 tab PO DAILY 30 days naproxen 500 mg PO BID PRN 90 days omeprazole 20 mg PO DAILY 30 days polyethylene glycol 3350 (Miralax) 17 grams PO BID simvastatin 40 mg PO BEDTIME [facility] Surgical History History of surgery on right wrist (~1988) H/O colonoscopy History of surgery on arm History of hernia surgery History of knee surgery History of back surgery Family History Father No problems noted. Mother No problems noted. Sister Ovarian cancer Paternal Uncle Rectal cancer Maternal Grandmother Breast cancer Social History Housing: House Alcohol intake: current Alcohol intake frequency: holidays/special occasions only Alcohol type: other Patient Tobacco Use Status: Former Tobacco user Cigarettes Per Day: 40 Years Smoked: 12 e-Cigarette/Vaping Use: Never Used Second Hand Smoke Exposure: No service: No Current occupational status: other Current occupational exposures/hazards: No Cognitive needs: No Hearing needs: No Vision needs: No Physical Exam Vital Signs: BMI result Body Mass Index 28.6 Extrem Other: Right knee examination shows a minimal effusion, mild crepitus with range of motion, pain with range of motion, no instability Office Procedures Joint Injection/Drain Joint Injection/Drain Primary Site: right knee Prep: site was prepped using aseptic technique Injected: 20 mg of (Euflexxa viscosupplementation) and 1% plain lidocaine Procedure: The patient tolerated the procedure well Coding - Large joint Procedure code (CPT) selection complete Assessment & Plan Assessment & Plan (1) Arthritis of right knee: Code(s): M17.11 - Unilateral primary osteoarthritis, right knee Plan Mr. Mars presents with right knee pain due to degenerative joint disease. The risks and benefits of a 2nd Euflexxa injection were discussed at length with the patient. The patient wished to proceed. Tolerated the injection well. He will continue with his home exercise program. Will follow up next week as scheduled for his 3rd injection. Feel free to call me at any time should questions regarding his orthopedic management arise. Orders: Orders AMB Joint Injection/Aspiration Today M17.11 - Unilateral primary osteoarthritis, right knee Coding Level of Care Code Procedure Only Diagnoses Arthritis of right knee M17.11 CPT Codes Coding - Large joint: 48006 - Large joint ([id number])
== END 2023-11-17 07:57 | disposition home or self-care (01) ==
PROVIDERS: PCP Family Medicine; Visit Provider Orthopaedic Surgery
DX: M17.11 Unilateral primary osteoarthritis, right knee (principal)
CPT/HCPCS: 20610

== ENCOUNTER → 2023-11-17 07:44 | Outpatient (BNVA) | payer OTHER, SELFPAY | PROVIDERS: PCP Family Medicine; Visit Provider Orthopaedic Surgery | DX: M17.11 Unilateral primary osteoarthritis, right knee (principal) | CPT/HCPCS: 20610; J7323 ==

== ENCOUNTER 2023-11-24 07:42 | Outpatient (AMB) | payer OTHER, SELFPAY ==
[2023-11-24 07:52] VITALS: BMI 28.6
--- NOTE | 2023-11-24 07:52 | MHC.OFFVIS ---
Intake Vital Signs 11/24/23 07:52 Height 5 ft 10 in Weight 199 lb BMI 28.6 Intake Visit Reasons: OV-#3 Euflexxa inj Right knee Intake Note: Yazan is a 63 year old Male who presents for his Right knee #3 Euflexxa gel injection. Patient reports he is still feeling some dull pain. The patient continues with his home exercise program. Allergies No Known Allergies Allergy (Verified 11/24/23 07:52) Medication List - Last Reconciled 11/24/23 by Collin Wetzel MD clotrimazole 1% (Antifungal (clotrimazole)) 1 appl topical BID 2 weeks diclofenac sodium 1% (Voltaren Arthritis Pain) 2 grams topical QID 30 days lidocaine HCl-hydrocortison ac 3-0.5 % 1 appl [place] BEDTIME lisinopril 5 mg PO DAILY lisinopril-hydrochlorothiazide 10-12.5 mg 1 tab PO DAILY 30 days naproxen 500 mg PO BID PRN 90 days omeprazole 20 mg PO DAILY 30 days polyethylene glycol 3350 (Miralax) 17 grams PO BID simvastatin 40 mg PO BEDTIME PFSH Surgical History History of surgery on right wrist (~1988) H/O colonoscopy History of surgery on arm History of hernia surgery History of knee surgery History of back surgery Family History Father No problems noted. Mother No problems noted. Sister Ovarian cancer Paternal Uncle Rectal cancer Maternal Grandmother Breast cancer Social History Housing: House Alcohol intake: current Alcohol intake frequency: holidays/special occasions only Alcohol type: other Patient Tobacco Use Status: Former Tobacco user Cigarettes Per Day: 40 Years Smoked: 12 e-Cigarette/Vaping Use: Never Used Second Hand Smoke Exposure: No service: No Current occupational status: other Current occupational exposures/hazards: No Cognitive needs: No Hearing needs: No Vision needs: No Physical Exam Vital Signs: BMI result Body Mass Index 28.6 Extrem Other: Right knee examination shows a minimal effusion, palpable crepitus with range of motion, pain with range of motion, no instability Office Procedures Joint Injection/Drain Joint Injection/Drain Primary Site: right knee Prep: site was prepped using aseptic technique Injected: 20 mg of (Euflexxa) and 1% plain lidocaine Procedure: The patient tolerated the procedure well Coding - Large joint Procedure code (CPT) selection complete Assessment & Plan Assessment & Plan (1) Arthritis of right knee: Code(s): M17.11 - Unilateral primary osteoarthritis, right knee Plan Mr. Mars presents with right knee pain due to degenerative joint disease. The risks and benefits of a 3rd Euflexxa injection were discussed at length with the patient. The patient wished to proceed. He tolerated the injection well. He will continue with his home exercise program. He will follow up with me on an as-needed basis should his symptoms not plateau at an unacceptable level over the next few months. Feel free to call me at any time should questions regarding his orthopedic management arise. Orders: Orders AMB Joint Injection/Aspiration Today M17.11 - Unilateral primary osteoarthritis, right knee Coding Level of Care Code Procedure Only Diagnoses Arthritis of right knee M17.11 CPT Codes Coding - Large joint: 46860 - Large joint ([id number])
== END 2023-11-24 08:04 | disposition home or self-care (01) ==
PROVIDERS: PCP Family Medicine; Visit Provider Orthopaedic Surgery
DX: M17.11 Unilateral primary osteoarthritis, right knee (principal)
CPT/HCPCS: 20610

== ENCOUNTER → 2023-11-24 07:42 | Outpatient (BNVA) | payer OTHER, SELFPAY | PROVIDERS: PCP Family Medicine; Visit Provider Orthopaedic Surgery | DX: M17.11 Unilateral primary osteoarthritis, right knee (principal) | CPT/HCPCS: 20610 ==

== ENCOUNTER 2023-12-08 07:31 | Outpatient (REF) | payer OTHER, SELFPAY ==
[2023-12-08 12:58] LABS: Alanine Aminotransferase 17 U/L (0-40); Albumin Level 4.2 g/dL (3.5-5.0); Alkaline Phosphatase 35 U/L (39-117); Anion Gap 12 (12-20); Aspartate Amino Transferase 15 U/L (5-37); Bilirubin Total 0.6 mg/dL (0.0-1.0); Blood Urea Nitrogen 17 mg/dL (9-16); Calcium 9.2 mg/dL (8.4-10.2); Carbon Dioxide 27 mmol/L (22-29); Chloride 103 mmol/L (96-108); Estimated Glomerular Filt Rate > 60; Glucose Fasting 113 mg/dL (60-99); Potassium 3.6 mmol/L (3.3-5.1); Sodium 138 mmol/L (135-145); Total Protein 6.9 g/dL (6.5-8.0)
[2023-12-08 13:16] LABS: TSH reflex Free T4 1.89 uIU/mL (0.32-4.0)
[2023-12-13 22:28] LABS: Testosterone, Free 30.9 pg/mL (35.0-155.0); Testosterone, Total 166 ng/dL (250-1100)
== END 2023-12-08 07:32 | disposition home or self-care (01) ==
LOC: HO.WFDLDS 07:31
PROVIDERS: Visit Provider Family Medicine
DX: Z00.00 Encounter for general adult medical examination without abnormal findings (principal); R53.83 Other fatigue
CPT/HCPCS: 36415; 80053; 84402; 84403; 84443

== ENCOUNTER 2023-12-09 11:32 | Outpatient (AMB) | payer OTHER, SELFPAY ==
--- NOTE | 2023-12-09 11:51 | MHC.PC.OV ---
Vital Signs 12/09/23 11:57 Height 5 ft 10 in Weight 203 lb 8 oz BMI 29.2 BP 126/78 Blood Pressure Location Rt brachial Position Sitting Respiration 14 Pulse 93 Pulse Source Pulse Oximeter Temp 98.3 F Pulse Oximetry (%) 93 Intake Visit Reasons: f/u hypertension and labs Intake Note: Follow up hypertension Senior Oracle Adf Developer Required: No Allergies No Known Allergies Allergy (Verified 12/09/23 11:52) Medication List - Last Reconciled 12/09/23 by Poncho Herbert MD diclofenac sodium 1% (Voltaren Arthritis Pain) 2 grams topical QID 30 days lisinopril-hydrochlorothiazide 10-12.5 mg 1 tab PO DAILY 30 days naproxen 500 mg PO BID PRN 90 days polyethylene glycol 3350 (Miralax) 17 grams PO BID simvastatin 40 mg PO BEDTIME Tobacco use date assessed: 12/09/23 Dental Screening Dental Screen Date: 12/09/23 Did you have a dental visit in the last 12 months?: No Did you have a dental problem in the last 6 months where you did not have access to dental care?: Yes Was dental information given to patient?: Patient has dentist HPI f/u hypertension and labs HPI Details 63 y/o male presents to f/u hypertension and labs. Had changed lisinopril to lisinopril-HCTZ 10/12.5 mg daily. Labs were drawn 12/08/23. Reviewed labs with pt. Elevated fasting glucose of 113. Last A1c 10/01/23 5.3%. Blood pressure today 126/78. He has no problems with his medication regimen. Pt reports he continues to take naproxen for occasional sharp pain on R knee while driving. He continues to f/u with Dr. Wetzel orthopedics. HPI Comments History of Present Illness Details Documentation assistance for Poncho Herbert MD, was provided by Christiano Pantoja, Sales Program Coordinator on 12/09/2023 12:34 PM EST. I, Dr. Herbert, have read, observed, and verified documentation. [facility] Surgical History History of surgery on right wrist (~1988) H/O colonoscopy History of surgery on arm History of hernia surgery History of knee surgery History of back surgery Family History Father No problems noted. Mother No problems noted. 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 1. Little interest or pleasure in doing things: not at all 2. Feeling down, depressed, or hopeless: not at all 3. Trouble falling or staying asleep, or sleeping too much: not at all 4. Feeling tired or having little energy: not at all 5. Poor appetite or overeating: not at all 6. Feeling bad about yourself - or that you are a failure or have let yourself or your family down: not at all 7. Trouble concentrating on things, such as reading the newspaper or watching television: not at all 8. Moving or speaking so slowly that other people could have noticed. Or the opposite - being so fidgety or restless that you have been moving around a lot more than usual: not at all 9. Thoughts that you would be better off or of hurting yourself in some way: not at all Total score: 0 Depression Screening Interpretation: Negative Depression Screening Done: Yes 74700 - PHQ-9 Billing: Yes Source: Developed by Drs. Mina Conway, Jayde Streeter, Celso Johnson and colleagues, with an educational margarita from [employer]. Thrive Questionnaire Date Thrive assessed: 12/09/23 I am a: Patient What is your living situation today?: I have a steady place to live Within the past 12 months, did the food you bought not last and you didn't have the money to get more?: Never true Within the past 12 months, did you worry whether your food would run out before you got money to buy more?: Never true Do you have trouble paying for medicines?: No Do you have trouble getting transportation to medical appointments?: No Do you have trouble paying your heating and electricity bill?: No Do you have trouble taking care of your child, family member or friend?: No Do you have trouble with day-to-day activities such as bathing, preparing meals, shopping, managing finances, etc.?: No Are you currently unemployed and looking for a job?: No Are you interested in more education?: No Please select the resources that you would like help with: None Currently or been in a relationship where the following occur: no concerns reported THRIVE Score: 0 AUDIT C Alcohol Use Questionnaire (AUDIT-C) 1. How often do you have a drink containing alcohol?: 2-4 times a month 2. How many drinks containing alcohol do you have on a typical day when you are drinking?: 3 or 4 3. How often do you have six or more drinks on one occasion?: Less than monthly Total Score: 4 JAMARI-7 AMB Questionnaire JAMARI-7 Date JAMARI - 7 assessed: 12/09/23 Feeling nervous, anxious, or on edge: 0 = Not at all Not being able to stop or control worryin = Not at all Worrying too much about different things: 0 = Not at all Trouble relaxin = Not at all Being so restless that it is hard to sit still: 0 = Not at all Becoming easily annoyed or irritable: 0 = Not at all Feeling afraid as if something awful might happen: 0 = Not at all Total JAMARI-7 score (0-4 normal; 5-9 mild; 10-14 moderate; 15-21 severe): 0 Source: Developed by Drs. Mina Conway, Jayde Streeter, Celso Johnson and colleagues, with an educational margarita from [employer]. JAMARI-7 Assessment Billing JAMARI-7 Assessment Tool: JAMARI-7 Assessment 51592 Review of Systems Const Denies chills, Denies fatigue, Denies fever(s), Denies headache(s) and Denies weakness ENT Denies dizziness and Denies headache(s) Card Denies dyspnea Resp Denies cough, Denies dyspnea, Denies wheezing and Denies other (shortness of breath) Musc Denies numbness and Denies tingling Neuro Denies dizziness, Denies headache(s), Denies numbness, Denies tingling and Denies weakness Psych Denies anxiety and Denies depression Endo Denies fatigue Aller/Immun Denies wheezing Physical exam (Primary Care) Vital Signs: Last Vital Signs Temp 98.3 F 12/09/23 11:57 Pulse 93 12/09/23 11:57 Resp 14 12/09/23 11:57 BP 126/78 12/09/23 11:57 Pulse Ox 93 12/09/23 11:57 BMI result Body Mass Index 29.2 Tobacco/Smoking Status: Tobacco use Status Tobacco use date assessed 12/09/23 12/09/23 12:05 Patient Tobacco Use Status Former Tobacco user 12/09/23 12:05 e-Cigarette/Vaping Use Never Used 12/09/23 12:05 PHQ-9: PHQ-9 Score PHQ-9: Total score 0 12/09/23 12:33 Depression Screening Interpretation: Negative Thrive Assessment: Date of Thrive Assessment Date Thrive assessed 12/09/23 12/09/23 12:05 Currently or been in a relationship where the following occur: no concerns reported Const General: well developed; No acute distress Nutritional Appearance: well nourished Orientation/consciousness: patient oriented x3 [facility] Head: Yes normocephalic and Yes atraumatic Eyes General: appearance normal, both eyes and all related structures Pupils: Equal, round and reactive pupils present EOM: EOMs intact bilaterally Resp Effort & Inspection: normal respiratory effort Auscultation: clear to auscultation bilaterally Cardio Rate: regular rate Rhythm: regular rhythm Heart sounds: S1 normal heart sound present, S2 normal heart sound present, no gallops, no murmurs and no rubs Neuro General: patient oriented x3 and gait normal Cranial nerves: Yes Equal, round and reactive pupils present Psych Affect: normal affect Assessment and Plan Assessment & Plan (1) Essential hypertension: Code(s): I10 - Essential (primary) hypertension Plan: Blood?pressure?now?well?controlled.??Goal?is?less?than?140/90 Continue?current?medication?regimen (2) Fatigue: Code(s): R53.83 - Other fatigue Plan: Patient?had?requested?testosterone?levels?checked?but?these?are?still?pending Will?call?him?if?action?is?required (3) Arthritis of right knee: Code(s): M17.11 - Unilateral primary osteoarthritis, right knee Plan: Recent?injection?therapy?by?Dr. Wetzel Patient?notes?some?improvement?though?still?has?some?discomfort.??Can?use?naproxen?and?ice/heat?as?well Follow-up?with?ortho?as?recommended Coding Level of Care Code Est Pt Level 4 (52242) Diagnoses Essential hypertension I10 Fatigue R53.83 Arthritis of right knee M17.11 Additional Codes JAMARI-7 Assessment Billing - JAMARI-7 Assessment Tool: JAMARI-7 Assessment 23189 ([id number])
[2023-12-09 11:57] VITALS: BP 126/78; PULSE 93; RESP 14; TEMP 36.8; O2SAT 93; BMI 29.2
== END 2023-12-09 12:41 | disposition home or self-care (01) ==
PROVIDERS: PCP Family Medicine; Visit Provider Family Medicine
DX: I10 Essential (primary) hypertension (principal); R53.83 Other fatigue; M17.11 Unilateral primary osteoarthritis, right knee
CPT/HCPCS: 99214

== ENCOUNTER 2023-12-09 15:37 | Outpatient (AMB) | payer OTHER, SELFPAY ==
--- NOTE | 2023-12-09 15:40 | A.OFFVIS_ITS ---
Vital Signs 12/09/23 15:42 Height 5 ft 10 in Weight 200 lb 9.93 oz BMI 28.8 BP 140/79 H Blood Pressure Location Lt brachial Position Supine Pulse 112 H Intake Visit Reasons: 6 Month Follow Up Intake Note: Yazan presents in the office as a 6 month follow up. CC: He states that everything is good and he has no complaints. Allergies No Known Allergies Allergy (Verified 12/09/23 15:42) HPI Comments Details: 62 y.o M with no significant PMH who has been referred to our office for rectal bleeding. 03/20/23: Reports rectal bleeding started last month out of nowhere. Knew had hemorrhoid flare up - which he describes as swollen tissue that prolapses occasionally and is a bit uncomfortable while defecation. BM itself is brown but often has some blood on top. Last colo was around 2018. Pt thinks at [facility]. No polyps but was asked to return in 5years due to possible hx of advanced polyps in mother. Pt reports his mom had a partial colon resection but hes unsure if that was done for diverticulitis or large polyps. Had lower abd cramping for a couple of days which has since resolved. His only worry is that his hemorrhoids have never bled for this long. CBC from 2 weeks was normal. 05/19/23: Sx compeletely resolved within a week of improving hydration + fiber and starting topical hydrocort. Has not had any bleeding or rectal discomfort in the last 3 weeks. Records from [facility] reviewed - MRI 2018 with liver cysts including a 2.1 cm septated cyst in R liver lobe. MRI 06/08/23: The liver is normal in size and contour. Hepatic steatosis. There are multiple T2 hyperintense T1 hypointense foci scattered throughout the hepatic parenchyma with the largest measuring 1.7 cm and the left hepatic lobe and 2.0 cm in the right hepatic lobe. No significant postcontrast enhancement. No further imaging follow-up is needed. The common duct measures 4 mm at the dayana hepatis. No biliary ductal dilatation is present. The gallbladder is unremarkable with no evidence of gallbladder wall thickening, or obvious pericholecystic inflammatory changes. 12/09/23: Presents to the office for routine q6m follow up. No acute gastrointestinal complaints including rectal bleeding. Results of the MRI reviewed. Pt reassured that benign small cysts. [facility] records reviewed: [place] 09/2019: No polyps. Repeat recommended in 5 years by the endoscopist. [facility] Surgical History (Updated 12/09/23 @ 15:43 by CONCETTA Henderson) History of esophagogastroduodenoscopy (EGD) History of surgery on right wrist (~1988) H/O colonoscopy History of surgery on arm History of hernia surgery History of knee surgery History of back surgery Family History Father No problems noted. Mother No problems noted. 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 Current occupational exposures/hazards: No Cognitive needs: No Hearing needs: No Vision needs: No Review of Systems Const All systems reviewed & are unremarkable except as noted in HPI and below Physical Exam Vital Signs: Last Vital Signs Pulse 112 H 12/09/23 15:42 BP 140/79 H 12/09/23 15:42 BMI result Body Mass Index 28.8 NAD Nonicteric No overt resp distress ABd soft, nontender No peripheral edema Assessment & Plan Assessment & Plan (1) Blood in stool: Code(s): K92.1 - Melena Category: Medical (2) Liver cyst: Code(s): K76.89 - Other specified diseases of liver Category: Medical Plan Clinical presentation and assessment most consistent with hemorrhoidal bleeding that has resolved with topical hydrocort application, and avoiding constipation. Liver cysts are benign and do not need any further surveillance. Plan: - Due for colo early 2024. Reminder set. - Follow up in the meanwhile as needed Coding Level of Care Code Est Pt Level 3 (15799) Diagnoses Blood in stool K92.1 Liver cyst K76.89
[2023-12-09 15:42] VITALS: BP 140/79; PULSE 112; BMI 28.8
== END 2023-12-09 16:16 | disposition home or self-care (01) ==
PROVIDERS: PCP Family Medicine; Visit Provider Internal Medicine
DX: K92.1 Melena (principal); K76.89 Other specified diseases of liver
CPT/HCPCS: 99213

== ENCOUNTER → 2023-12-09 15:37 | Outpatient (BNVA) | payer OTHER, SELFPAY | PROVIDERS: PCP Family Medicine; Visit Provider Internal Medicine | DX: K92.1 Melena (principal); K76.89 Other specified diseases of liver | CPT/HCPCS: 99212 ==

== ENCOUNTER 2024-01-26 07:33 | Outpatient (AMB) | payer OTHER, SELFPAY ==
--- NOTE | 2024-01-26 07:36 | A.OFFVIS_ITS ---
Intake Visit Reasons: OV-RIght knee cortisone injection Intake Note: Yazan is a 63 year old male who presents with complaints of progressively worsening right knee pain. He did have viscosupplementation injections given into his right knee earlier this year. He states that he got only temporary relief from the injections. He has tried Tylenol and anti-inflammatory medicines which gave him only mild relief. He wishes to hold off on total knee replacement surgery for as long as possible. Allergies No Known Allergies Allergy (Verified 01/26/24 07:39) Medication List - Last Reconciled 01/26/24 by Collin Wetzel MD diclofenac sodium 1% (Voltaren Arthritis Pain) 2 grams topical QID 30 days lisinopril-hydrochlorothiazide 10-12.5 mg 1 tab PO DAILY 30 days naproxen 500 mg PO BID PRN 90 days polyethylene glycol 3350 (Miralax) 17 grams PO BID simvastatin 40 mg PO BEDTIME PFSH Surgical History (Updated 12/09/23 @ 15:43 by CONCETTA Henderson) History of esophagogastroduodenoscopy (EGD) History of surgery on right wrist (~1988) H/O colonoscopy History of surgery on arm History of hernia surgery History of knee surgery History of back surgery Family History Father No problems noted. Mother No problems noted. 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 Current occupational exposures/hazards: No Cognitive needs: No Hearing needs: No Vision needs: No Physical Exam Const Other: Well-nourished well-developed very friendly male awake alert and oriented x3 in no acute distress Extrem Other: Bilateral lower extremity examination shows good capillary refill, no skin lesions noted, normal sensation light touch Right knee examination shows a minimal effusion, palpable crepitus with range of motion, pain with range of motion, no instability Office Procedures Joint Injection/Drain Joint Injection/Drain Primary Site: right knee Prep: site was prepped using aseptic technique Injected: 40 mg of, DepoMedrol and 1% plain lidocaine Procedure: The patient tolerated the procedure well Coding - Large joint Procedure code (CPT) selection complete Results Reviewed Results Reviewed: X-rays of the patient's right knee show joint space narrowing, subchondral sclerosis, no acute bony abnormalities Assessment & Plan Assessment & Plan (1) Arthritis of right knee: Code(s): M17.11 - Unilateral primary osteoarthritis, right knee Category: Medical Plan Mr. Mars presents with right knee pain due to degenerative joint disease. I had a lengthy discussion with the patient regarding the treatment options. He wishes to hold off on total knee replacement surgery for as long as possible. I agree with this plan. The risks and benefits of a right knee cortisone injection were discussed at length with the patient. The patient wished to proceed. He tolerated the injection well. Will continue with his activity modifications. He will contact me prior to his follow-up appointment in 3 months should any questions or concerns arise. Feel free to call me at any time should questions regarding his orthopedic management arise. I spent 21 minutes in reviewing the patient's records and imaging studies, seeing the patient and documenting in the medical record. Orders: Orders AMB Joint Injection/Aspiration Today M17.11 - Unilateral primary osteoa rthritis, right knee Coding Level of Care Code Est Pt Level 3 (42176) Diagnoses Arthritis of right knee M17.11 CPT Codes Coding - Large joint: 86273 - Large joint ([id number])
== END 2024-01-26 07:58 | disposition home or self-care (01) ==
LOC: HO.HOS 07:33
PROVIDERS: PCP Family Medicine; Visit Provider Orthopaedic Surgery
DX: M17.11 Unilateral primary osteoarthritis, right knee (principal)
CPT/HCPCS: 20610; 99213

== ENCOUNTER → 2024-01-26 07:33 | Outpatient (BNVA) | payer OTHER, SELFPAY | PROVIDERS: PCP Family Medicine; Visit Provider Orthopaedic Surgery | DX: M17.11 Unilateral primary osteoarthritis, right knee (principal) | CPT/HCPCS: 20610; 99212; J1010 ==

== ENCOUNTER 2024-02-10 12:56 | Outpatient (AMB) | payer OTHER, SELFPAY ==
--- NOTE | 2024-02-10 12:58 | A.OFFVIS_ITS ---
Intake Visit Reasons: testicular hypofunction Intake Note: NEW Patient presents today to established treatment for Testicular Hypofunction: Meds- None Allergies to Antibiotic- No Known Allergies Blood Thinner- None Cigar Head Perforator Required: No Accompanied by: Self / Same As Patient Allergies No Known Allergies Allergy (Verified 02/10/24 12:59) Medication List - Last Reconciled 02/10/24 by Mandeep Muse MD diclofenac sodium 1% (Voltaren Arthritis Pain) 2 grams topical QID 30 days lisinopril-hydrochlorothiazide 10-12.5 mg 1 tab PO DAILY 30 days naproxen 500 mg PO BID PRN 90 days simvastatin 40 mg PO BEDTIME tadalafil (Cialis) 5 mg PO DAILY HPI Comments Details: 02/10/2024--Yazan is a 63-year-old male who is here for evaluation due to low testosterone. He states that he has had decreased energy. He has had concerns regarding erectile function as well. He has used Cialis 20 mg half a tab p.r.n. which has been helpful. I have reviewed lab work total testosterone and free testosterone are low. I have discussed repeating the testosterone levels as well as additional hormone levels, FSH, LH, prolactin, estradiol. I have discussed daily Cialis 5 mg to see if this therapy would the a better management for ED. 12/08/2023--total testosterone--166, free testosterone -30.9 04/21/23--PSA--0.25 PFSH Surgical History History of esophagogastroduodenoscopy (EGD) History of surgery on right wrist (~1988) H/O colonoscopy History of surgery on arm History of hernia surgery History of knee surgery History of back surgery Family History Father No problems noted. Mother No problems noted. 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 Current occupational exposures/hazards: No Cognitive needs: No Hearing needs: No Vision needs: No Review of Systems Const All systems reviewed & are unremarkable except as noted in HPI and below Reports no additional complaints Eyes Reports no additional complaints ENT Reports no additional complaints Card Reports no additional complaints Resp Reports no additional complaints GI Reports no additional complaints Reports as per HPI Musc Reports no additional complaints Skin/Breast Reports system reviewed and no additional complaints, except as documented Neuro Reports no additional complaints Psych Reports no additional complaints Endo Reports no additional complaints Alexandre/Lymph Reports no additional complaints Aller/Immun Reports no additional complaints Physical Exam Const General: healthy appearing, no acute distress and well developed Orientation/consciousness: patient oriented x3 HEENT Head: Yes normocephalic and Yes atraumatic Eyes Conjunctivae: conjunctivae normal Neck Neck: Yes normal visual inspection Chest Chest palpation & inspection: normal inspection of the chest Resp Effort & Inspection: normal respiratory effort Cardio Jugular venous distension: no JVD GI Inspection: Yes normal to inspection Skin General skin exam: no rashes or lesions noted Neuro General: patient oriented x3 Extrem General: No pedal edema Psych Appearance: grossly normal Affect: normal affect Results AMB Urinalysis, Automated UA Leukoctes 0 Atul/uL Last Edit by CONCETTA Fisher on 02/10/24 13:07 UA Nitrite Negative Last Edit by CONCETTA Fisher on 02/10/24 13:07 UA Urobilinogen 0.2 mg/dL Last Edit by CONCETTA Fisher on 02/10/24 13:0 7 UA Protein 0 mg/dL Last Edit by CONCETTA Fisher on 02/10/24 13:07 UA pH 5.5 Last Edit by CONCETTA Fisher on 02/10/24 13:07 UA Blood 0 Harmeet/uL Last Edit by Izabellayi MoCONCETTA mayberry on 02/10/24 13:07 UA Specific [place] 1.025 Last Edit by Christophe Hassan Joann on 02/10/24 13: 07 UA Ketone Negative Last Edit by Izabellayi Mo, A on 02/10/24 13:07 UA Bilirubin 0 mg/dL Last Edit by Izabellayi Hassan A on 02/10/24 13:07 UA Glucose 0 mg/dL Last Edit by Christophe Hassan A on 02/10/24 13:07 Results Reviewed Results Reviewed: Laboratory Last Values Urine pH (Auto) 5.5 02/10/24 13:03 Specific [place] (Auto) 1.025 02/10/24 13:03 Urine Protein (Auto) 0 mg/dL 02/10/24 13:03 Glucose (UA)(Auto) 0 mg/dL 02/10/24 13:03 Urine Ketones (Auto) Negative 02/10/24 13:03 Urine Blood (Auto) 0 [place]/uL 02/10/24 13:03 Urine Nitrite (Auto) Negative 02/10/24 13:03 Urine Bilirubin (Auto) 0 mg/dL 02/10/24 13:03 Urine Urobilinogen (Auto) 0.2 mg/dL 02/10/24 13:03 Leukocyte Esterase (Auto) 0 Atul/uL 02/10/24 13:03 Assessment & Plan Assessment & Plan (1) Hypogonadism in male: Code(s): E29.1 - Testicular hypofunction Category: Medical (2) Erectile dysfunction: Code(s): N52.9 - Male erectile dysfunction, unspecified Category: Medical (3) Screening for prostate cancer: Code(s): Z12.5 - Encounter for screening for malignant neoplasm of prostate Category: Medical Plan I have discussed repeating the testosterone levels as well as additional hormone levels, FSH, LH, prolactin, estradiol and PSA screening. I have discussed daily Cialis 5 mg to see if this therapy would the a better management for ED. Orders: Orders AMB Urinalysis Automated Today Z13.9 - Encounter for screening, unspecified Prolactin Today E29.1 - Testicular hypofunction, N52.9 - Male erectile dysfunction, unspecified PSA,Total (Free>4and<10) Today Z12.5 - Encounter for screening for malignant neoplasm of prostate Estradiol Ultra Sensitive Today E29.1 - Testicular hypofunction, N52.9 - Male erectile dysfunction, unspecified Follicle Stimulating Hormone Today E29.1 - Testicular hypofunction, N52.9 - Male erectile dysfunction, unspecified Testosterone, Free/Total Today E29.1 - Testicular hypofunction, N52.9 - Male erectile dysfunction, unspecified Lutenizing Hormone Today E29.1 - Testicular hypofunction, N52.9 - Male erectile dysfunction, unspecified Glucose Fasting Today E29.1 - Testicular hypofunction, N52.9 - Male erectile dysfunction, unspecified Medications: New tadalafil (Cialis) [id number] [facility] [id number] Member [id number] 5 mg PO DAILY 30 tabs 3RF Patient Instructions: The patient had an opportunity to ask questions regarding treatment plan. The patient expressed understanding and agreement with the above treatment plan. The patient is aware they should contact our office by phone for worsening of their current condition or the appearance of new symptoms. Compliance is encouraged with any medications and followup testing that is ordered. It is a privilege to be allowed the opportunity to participate in the urologic care of your patient. If you have any questions or concerns regarding treatment for the above conditions please do not hesitate to contact me. The office telephone contact is [phone]. This note is constructed in part using voice recognition software. While every effort has been made to ensure accuracy criminalist errors may have been included. Yours sincerely, Mandeep Muse MD Coding Level of Care Code New Pt Level 4 (72031) Diagnoses Hypogonadism in male E29.1 Erectile dysfunction N52.9 Screening for prostate cancer Z12.5
== END 2024-02-10 13:47 | disposition home or self-care (01) ==
PROVIDERS: PCP Family Medicine; Visit Provider Urology
DX: E29.1 Testicular hypofunction (principal); N52.9 Male erectile dysfunction, unspecified; Z12.5 Encounter for screening for malignant neoplasm of prostate; Z13.9 Encounter for screening, unspecified
CPT/HCPCS: 99204

== ENCOUNTER → 2024-02-10 12:56 | Outpatient (BNVA) | payer OTHER, SELFPAY | PROVIDERS: PCP Family Medicine; Visit Provider Urology | DX: E29.1 Testicular hypofunction (principal); N52.9 Male erectile dysfunction, unspecified; Z12.5 Encounter for screening for malignant neoplasm of prostate | CPT/HCPCS: 81003; 99202 ==

== ENCOUNTER 2024-02-24 07:39 | Outpatient (AMB) | payer OTHER, SELFPAY ==
--- NOTE | 2024-02-24 07:42 | A.OFFVIS_ITS ---
Vital Signs 02/24/24 07:43 Height 5 ft 10 in Weight 200 lb BMI 28.7 Intake Visit Reasons: OV-Right knee injection follow up Intake Note: Yazan is a 63 year old male who presents today for a Right knee injection follow up. The patient describes his pain as sharp and severe in nature. He did undergo right knee arthroscopic surgery several years ago. He got fairly good relief from that procedure. States that he re-injured his right knee approximately 1 year ago. He has failed the last 6 weeks of conservative treatment. Did have a cortisone injection approximately 6 weeks ago which gave him 2 days' worth of relief. He has done physical therapy which aggravated his pain. He has also tried Tylenol and anti-inflammatory medicines as well as topical diclofenac which gave him minimal relief. He states that his right knee will give out several times per day. Allergies No Known Allergies Allergy (Verified 02/24/24 07:44) Medication List - Last Reconciled 02/24/24 by Collin Wetzel MD diclofenac sodium 1% (Voltaren Arthritis Pain) 2 grams topical QID 30 days lisinopril-hydrochlorothiazide 10-12.5 mg 1 tab PO DAILY 30 days naproxen 500 mg PO BID PRN 90 days simvastatin 40 mg PO BEDTIME tadalafil (Cialis) 5 mg PO DAILY PFSH Surgical History History of esophagogastroduodenoscopy (EGD) History of surgery on right wrist (~1988) H/O colonoscopy History of surgery on arm History of hernia surgery History of knee surgery History of back surgery Family History Father No problems noted. Mother No problems noted. 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 Current occupational exposures/hazards: No Cognitive needs: No Hearing needs: No Vision needs: No Physical Exam Vital Signs: BMI result Body Mass Index 28.7 Const Other: Well-nourished well-developed very friendly male awake alert and oriented x3 in no acute distress Extrem Other: Bilateral lower extremity examination shows good capillary refill, no skin lesions noted, normal sensation light touch Right knee examination shows a minimal effusion, minimal crepitus with range of motion, tenderness along his medial joint line, positive Will's test, no instability Results Reviewed Results Reviewed: Standing full weight-bearing x-rays of the patient's right knee show mild to moderate joint space narrowing most significant in the medial compartment, no acute bony abnormalities Assessment & Plan Assessment & Plan (1) Right knee pain: Code(s): M25.561 - Pain in right knee Category: Medical Plan Mr. Mars presents with progressively worsening right knee pain and mechanical symptoms due to early degenerative joint disease as well as possible recurrent medial meniscus tearing. Thus, I will send the patient for an MRI of his right knee for further evaluation. I will see him back once the MRI is completed to discuss the findings and treatment options. Feel free to call me at any time should questions regarding his orthopedic management arise. I spent 20 minutes in reviewing the patient's records and imaging studies, seeing the patient and documenting in the medical record. Orders: Orders MR knee RT wo con Today M25.561 - Pain in right knee Coding Level of Care Code Est Pt Level 3 (39053) Diagnoses Right knee pain M25.561
[2024-02-24 07:43] VITALS: BMI 28.7
== END 2024-02-24 07:58 | disposition home or self-care (01) ==
PROVIDERS: PCP Family Medicine; Visit Provider Orthopaedic Surgery
DX: M25.561 Pain in right knee (principal)
CPT/HCPCS: 99213

== ENCOUNTER → 2024-02-24 07:39 | Outpatient (BNVA) | payer OTHER, SELFPAY | PROVIDERS: PCP Family Medicine; Visit Provider Orthopaedic Surgery | DX: M25.561 Pain in right knee (principal) | CPT/HCPCS: 99212 ==

== ENCOUNTER 2024-03-08 07:45 | Outpatient (REF) | payer OTHER, SELFPAY ==
[2024-03-08 12:17] LABS: Glucose Fasting 106 mg/dL (60-99)
[2024-03-08 12:21] LABS: PSA,Total (Free>4and<10) 0.39 ng/mL (0.00-4.00)
[2024-03-10 08:56] LABS: Follicle Stimulating Hormone 8.7 mIU/mL (1.4-12.8); Lutenizing Hormone 8.1 mIU/mL (1.6-15.2); Prolactin 8.7 ng/mL (2.0-18.0)
[2024-03-13 15:24] LABS: Testosterone, Free 24.1 pg/mL (35.0-155.0); Testosterone, Total 126 ng/dL (250-1100)
[2024-03-15 02:22] LABS: Estradiol Ultra Sensitive 18 pg/mL (< OR = 29)
== END 2024-03-08 07:46 | disposition home or self-care (01) ==
LOC: HO.WFDLDS 07:45
PROVIDERS: Visit Provider Urology
DX: N52.9 Male erectile dysfunction, unspecified (principal); Z12.5 Encounter for screening for malignant neoplasm of prostate; E29.1 Testicular hypofunction
CPT/HCPCS: 36415; 82670; 82947; 83001; 83002; 84146; 84153; 84402; 84403

== ENCOUNTER 2024-03-23 10:55 | Outpatient (AMB) | payer OTHER, SELFPAY ==
--- NOTE | 2024-03-23 10:55 | MHC.OFFVIS ---
Intake Visit Reasons: OV- RT knee MRI review Intake Note: Yazan is a 63 year old male who presents as a telehealth for his MRI review of his right knee. Yazan is a 63 year old Male who presents with complaints of progressively worsening right knee pain and giving way. The patient did undergo right knee arthroscopic surgery in the past. He got fairly good relief from that surgery initially. Over the last few years has had both cortisone injections and viscosupplementation injections. He got minimal relief from the most recent cortisone and viscosupplementation injections. He has tried Tylenol and anti-inflammatory medicines which gave him minimal relief. He has also done physical therapy exercises which aggravated his pain. He wishes to hold off on total knee replacement surgery for as long as possible. He states that his right knee will give out several times per day. Allergies No Known Allergies Allergy (Verified 03/23/24 10:55) [facility] Surgical History History of esophagogastroduodenoscopy (EGD) History of surgery on right wrist (~1988) H/O colonoscopy History of surgery on arm History of hernia surgery History of knee surgery History of back surgery Family History Father No problems noted. Mother No problems noted. 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 Current occupational exposures/hazards: No Cognitive needs: No Hearing needs: No Vision needs: No Telehealth Telehealth Telehealth Platform: Telephone Location of provider rendering services: practice address Location of patient: address on file Patient Identification confirmed using: Name, : Yes Telehealth method: voice only Patient verbally consented to treatment: Yes Patient verbally consented to billing insurance company: Yes Patient informed of any privacy concerns related to visit: Yes Minutes spent on Phone/Video with Pt.: 11 Results Reviewed Results Reviewed: MRI of the patient's right knee shows mild to moderate degenerative changes most significant in the medial compartment, a tear of the posterior horn of the medial meniscus as well as tearing along the anterior horn of the lateral meniscus Assessment & Plan Assessment & Plan (1) Tear of medial meniscus of right knee: Code(s): S83.241A - Other tear of medial meniscus, current injury, right knee, initial encounter Category: Medical Plan Mr. Mars presents with progressively worsening right knee pain and mechanical symptoms due to medial and lateral meniscus tearing and mild to moderate degenerative joint disease. I had a lengthy discussion with the patient regarding the treatment options. At this point he has failed continued non operative treatments. We did discuss the risks and benefits of revision arthroscopic surgery versus right total knee replacement surgery. Because of the patient's significant mechanical symptoms I do feel that he would experience significant improvement following the arthroscopic procedure. The patient wishes to proceed with surgery. He will be scheduled for next available date. He does understand that he may not get 100% relief of his symptoms depending on the severity of his degenerative changes. He will follow-up as instructed. Feel free to call me at any time should questions regarding his orthopedic management arise. Coding Level of Care Code Tele Est Pt Level 1 (54424) Diagnoses Tear of medial meniscus of right knee S83.241A
== END 2024-03-23 11:08 | disposition home or self-care (01) ==
LOC: HO.HOS 10:55
PROVIDERS: PCP Family Medicine; Visit Provider Orthopaedic Surgery
DX: S83.241A Other tear of medial meniscus, current injury, right knee, initial encounter (principal)
CPT/HCPCS: 99211

== ENCOUNTER → 2024-03-23 10:55 | Outpatient (BNVA) | payer OTHER, SELFPAY | PROVIDERS: PCP Family Medicine; Visit Provider Orthopaedic Surgery ==

== ENCOUNTER 2024-04-08 07:42 | Day surgery (SDC) | payer OTHER, SELFPAY ==
[2024-04-05 15:39] VITALS: BMI 29.3
--- NOTE | 2024-04-06 13:09 | P.CONAN_ITS ---
HPI - Anesthesia Eval Consult details Narrative: 64yo M for Right Knee Arthroscopy with partial medial and Lateral meniscectomy PMFSH Active Problems Active Problems: All Active Problems Tear of medial meniscus of right knee (Acute) Erectile dysfunction (Acute) Hypogonadism in male (Acute) Arthritis of right knee (Acute) Fatigue (Acute) Right knee pain (Acute) Kidney cysts (Acute) Liver cyst (Acute) Stomach discomfort (Acute) Blood in stool (Acute) Low HDL (under 40) (Acute) Dysuria (Acute) Urinary frequency (Acute) Hyperlipidemia (Acute) Hypertriglyceridemia (Acute) Elevated fasting blood sugar (Acute) Tinea cruris (Acute) Screening for colon cancer (Acute) Screening for prostate cancer (Acute) Annual physical exam (Acute) Osteoarthritis of right knee (Acute) Immunization counseling (Acute) History of COVID-19 (Acute) Laboratory examination ordered as part of a routine general medical examination (Acute) Essential hypertension (Acute) Past Medical History Medical History Erectile dysfunction Arthritis Hypertriglyceridemia Hyperlipidemia HTN (hypertension) Family History Family History Father No problems noted. Mother No problems noted. Sister Ovarian cancer Paternal Uncle Rectal cancer Maternal Grandmother Breast cancer Surgical History Surgical History History of esophagogastroduodenoscopy (EGD) History of surgery on right wrist (~1988) H/O colonoscopy History of surgery on arm History of hernia surgery History of knee surgery History of back surgery Social History Social History Housing: House Alcohol intake: current Alcohol intake frequency: holidays/special occasions only Alcohol type: other Patient Tobacco Use Status: Former Tobacco user Tobacco use type: Cigarette Cigarettes Per Day: 40 Years Smoked: 12 e-Cigarette/Vaping Use: Never Used Second Hand Smoke Exposure: No service: No Current occupational status: employed 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
[2024-04-08] VITALS (7 sets, daily range): BP systolic 137–165; BP diastolic 74–90; PULSE 93–109; RESP 16–18; TEMP 36.3–36.6; O2SAT 96–100; BMI 27.5
--- NOTE | 2024-04-08 08:13 | HO.ANESPROP2 ---
[facility] Active Problems Active Problems: All Active Problems Tear of medial meniscus of right knee (Acute) Erectile dysfunction (Acute) Hypogonadism in male (Acute) Arthritis of right knee (Acute) Fatigue (Acute) Right knee pain (Acute) Kidney cysts (Acute) Liver cyst (Acute) Stomach discomfort (Acute) Blood in stool (Acute) Low HDL (under 40) (Acute) Dysuria (Acute) Urinary frequency (Acute) Hyperlipidemia (Acute) Hypertriglyceridemia (Acute) Elevated fasting blood sugar (Acute) Tinea cruris (Acute) Screening for colon cancer (Acute) Screening for prostate cancer (Acute) Annual physical exam (Acute) Osteoarthritis of right knee (Acute) Immunization counseling (Acute) History of COVID-19 (Acute) Laboratory examination ordered as part of a routine general medical examination (Acute) Essential hypertension (Acute) Past Medical History Medical History Erectile dysfunction Arthritis Hypertriglyceridemia Hyperlipidemia HTN (hypertension) Functional capacity: independent ambulation Family History Family History Father No problems noted. Mother No problems noted. Sister Ovarian cancer Paternal Uncle Rectal cancer Maternal Grandmother Breast cancer Family history of problems with anesthesia: No Surgical History Surgical History History of esophagogastroduodenoscopy (EGD) History of surgery on right wrist (~1988) H/O colonoscopy History of surgery on arm History of hernia surgery History of knee surgery History of back surgery History of Problems with Anesthesia: No Social History Social History Housing: House Alcohol intake: current Alcohol intake frequency: holidays/special occasions only Alcohol type: other Patient Tobacco Use Status: Former Tobacco user Tobacco use type: Cigarette Cigarettes Per Day: 40 Years Smoked: 12 e-Cigarette/Vaping Use: Never Used Second Hand Smoke Exposure: No Advance Directives Information Provided: Yes service: No Current occupational status: employed 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 Current occupational exposures/hazards: No Cognitive needs: No Hearing needs: No Vision needs: No Meds Allergies Allergy/AdvReac Type Severity Reaction Status Date / Time No Known Allergies Allergy Verified 03/23/24 10:55 Active Medications: Current Medications Lactated Ringer's (Lr) 1,000 mls @ 100 mls/hr IVCONT .Q10H HODAN Exam Height,Weight and Vital Signs: Height 5 ft 10 in Weight 87.09 kg Last Vital Signs Temp 97.9 F 04/08/24 08:01 Pulse 106 H 04/08/24 08:01 Resp 16 04/08/24 08:01 BP 137/90 H 04/08/24 08:01 Pulse Ox 97 04/08/24 08:01 O2 Del Method Room Air 04/08/24 08:01 Airway Mallampati Class: III TM Dist: >3cm Neck ROM: Full Heart: RRR Assessment and Plan Assessment Anesthesia Assessment: Anesthesia Plan Discussed Final Anesthetic Review Family History of Problems with Anesthesia: No History of Problems with Anesthesia: No NPO: Yes ASA Class: II Final Preanesthetic Review: Meds/Allgs Chart Reviewed, Consent Obtained/Reviewed and Anes Risks/Benef Reviewed Anesthetic Plan Anesthetic Plan: GA Disposition: Standard PACU
[2024-04-08] MEDS: Lactated Ringers 1,000 ML 100 ML IVCONT (08:29)
--- NOTE | 2024-04-08 09:42 | PC.NURSE ---
24hr update documented on paper
--- NOTE | 2024-04-08 10:12 | P.BOP_ITS ---
Brief Operative Note Date of Service: 04/08/24 Pre-op diagnosis: Right knee medial meniscus tear, right knee degenerative joint disease Post-op diagnosis: same Procedure: Right knee arthroscopic partial medial meniscectomy, right knee arthroscopic chondroplasty of the undersurface of the patella and the medial femoral condyle Implants: none Surgeon: Collin Wetzel MD Anesthesia: GETA Was an Wafer Polisher used for this Procedure?: No Estimated blood loss (mL): 10 Pathology: none sent Condition: stable Disposition: PACU
--- NOTE | 2024-04-08 10:13 | W.PM.OPN ---
Operative Note Operative Note Date of Service: 04/08/24 Narrative: After the patient was identified as Yazan Mars and his right knee was initialed by myself they were brought to the operating room where general anesthesia was induced by the anesthesiologist. The patient was given 2 g of IV Ancef for infection prophylaxis. A formal time-out was completed. The patient's right lower extremity was prepped and draped in sterile fashion. Marcaine with epinephrine was injected into the planned incision sites as well as their right knee joint. A # 11 scalpel blade was used to make an anterolateral portal 1 cm proximal to the joint line and 1 cm lateral to the patellar tendon. Blunt trocar technique was used into the suprapatellar pouch with the knee in extension. Diagnostic arthroscopy showed multiple bands of thickened plica which would be excised at the end of the procedure. There were no loose bodies or abnormalities found in either the medial or lateral gutters. There were diffuse grades 1 and 2 degenerative changes of the undersurface of the patella as well as grades 1 and 2 degenerative changes of the trochlear groove. The patient's knee was flexed to 45 degrees and a valgus force was placed upon it. The medial compartment was entered. An anteromedial portal was made 1 cm proximal to the joint line and 1 cm medial to the patellar tendon. Probing of the medial meniscus showed a radial tear of the posterior horn. A partial medial meniscectomy was performed using the arthroscopic shaver. Following the partial meniscectomy the remainder of the meniscus tissue was stable. There were diffuse grades 2 and 3 degenerative changes of the medial femoral condyle as well as diffuse grades 3 and 4 degenerative changes of the medial tibial plateau. The articular surface of the medial femoral condyle was made smooth using the arthroscopic shaver. The articular surface of the medial tibial plateau was already smooth so no chondroplasty was indicated. The patient's knee was then placed into a neutral position. There was no injury to the anterior cruciate ligament. The patient's knee was then placed into the figure of 4 position and the lateral compartment was entered. There were minimal degenerative changes of the lateral femoral condyle and lateral tibial plateau. There was no evidence of lateral meniscus tearing. The patient's knee was once again brought into extension and the suprapatellar pouch was entered. The arthroscopic shaver and the ArthroCare Wand were used to excise the thickened bands of plica. The undersurface of the patella was then made smooth using the arthroscopic shaver. The articular surface of the trochlear groove was already smooth so no chondroplasty was indicated. The knee joint was irrigated and then drained. All arthroscopic instruments were removed. The 2 portals were closed with 3-0 nylon interrupted suture. The knee joint was injected with Marcaine. Dry sterile dressing and Miguel Ángel bandages were placed over the patient's knee. The patient was awoken and extubated in the operating room. They were transferred to the recovery room in stable condition.
[2024-04-08] MEDS: cefTRIAXone sodium 1 GM in 0.9 % Sodium Chloride 50 ML IV (10:46)
--- NOTE | 2024-04-08 11:15 | HO.POSTANES ---
Post Anesthesia Evaluation Post Anesthesia Evaluation Date of Service: 04/08/24 Vital Signs: Vital Signs Temp Pulse Resp BP Pulse Ox O2 Del Method O2 Flow Rate 04/08/24 11:00 97.5 F 97 18 155/85 H 98 Room Air 04/08/24 10:45 100 16 147/85 H 97 Room Air 04/08/24 10:30 93 16 165/90 H 96 Room Air 04/08/24 10:29 98 16 140/79 H 98 Nasal Cannula with ETCO2 2 04/08/24 10:24 97 16 149/88 H 100 Nasal Cannula with ETCO2 2 04/08/24 10:19 97.4 F 109 H 16 144/74 H 98 Nasal Cannula with ETCO2 2 04/08/24 08:01 97.9 F 106 H 16 137/90 H 97 Room Air Anesthesia: General Endotracheal-GETA Mental Status: Awake Pain Control: Satisfactory Nausea/Vomiting: None Hydration: Adequate Anesthesia-Related Issues: No Anes. Related Issues Comments: pt has had 200 cc of gastric content suctioned off after ETT placement/, for 10 cc vomiting/ no obvious aspiration at this time/ H/o aspiration in the past when he had knee surgery/ . Gastric emptying scan is recommended to check whether he has gastro paresis or piloric stenosis . ETT placement is recommended at next surgery prophylactically. It was discussed with pt.
--- NOTE | 2024-04-08 15:59 | HO.POSTANES ---
Post Anesthesia Evaluation Post Anesthesia Evaluation Date of Service: 04/08/24 Vital Signs: Vital Signs Temp Pulse Resp BP Pulse Ox O2 Del Method O2 Flow Rate 04/08/24 11:00 97.5 F 97 18 155/85 H 98 Room Air 04/08/24 10:45 100 16 147/85 H 97 Room Air 04/08/24 10:30 93 16 165/90 H 96 Room Air 04/08/24 10:29 98 16 140/79 H 98 Nasal Cannula with ETCO2 2 04/08/24 10:24 97 16 149/88 H 100 Nasal Cannula with ETCO2 2 04/08/24 10:19 97.4 F 109 H 16 144/74 H 98 Nasal Cannula with ETCO2 2 04/08/24 08:01 97.9 F 106 H 16 137/90 H 97 Room Air Anesthesia: General Mental Status: Awake Pain Control: Satisfactory Nausea/Vomiting: None Hydration: Adequate Anesthesia-Related Issues: No Anes. Related Issues
== END 2024-04-08 11:45 | disposition home or self-care (01) ==
PROVIDERS: PCP Family Medicine; Visit Provider Orthopaedic Surgery
PROC: (CPT 29870; principal; 2024-04-08 09:00)
DX: S83.241A Other tear of medial meniscus, current injury, right knee, initial encounter (principal); X58.XXXA Exposure to other specified factors, initial encounter; Y93.9 Activity, unspecified; Y92.9 Unspecified place or not applicable; Y99.8 Other external cause status; M17.11 Unilateral primary osteoarthritis, right knee; M23.51 Chronic instability of knee, right knee; M67.51 Plica syndrome, right knee; Z98.890 Other specified postprocedural states; Z87.891 Personal history of nicotine dependence
CPT/HCPCS: 29881; J0131; J0171; J0690; J0696; J1100; J1885; J2250; J2405; J2704; J2795; J3010

== ENCOUNTER → 2024-04-08 07:42 | Outpatient (BNV) | payer OTHER, SELFPAY | PROVIDERS: PCP Family Medicine; Visit Provider Orthopaedic Surgery | DX: S83.241A Other tear of medial meniscus, current injury, right knee, initial encounter (principal) | CPT/HCPCS: 29881 ==

== ENCOUNTER 2024-04-11 15:39 | Outpatient (AMB) | payer OTHER, SELFPAY ==
--- NOTE | 2024-04-11 15:49 | MHC.OFFVIS ---
Intake Visit Reasons: 2m/labs(SET) Intake Note: Patient is Present for Follow Up labs Urology Medication: Tadalafil Antibiotic Allergies:None Blood Thinners: none no complaints on medication Unix Systems Administrator Required: No Allergies No Known Allergies Allergy (Verified 04/21/24 12:58) Medication List - Last Reconciled 04/11/24 by Mandeep Muse MD lisinopril-hydrochlorothiazide 10-12.5 mg 1 tab PO DAILY 30 days naproxen 500 mg PO BID PRN 90 days oxycodone 5 mg PO Q6H PRN 5 days simvastatin 40 mg PO BEDTIME tadalafil (Cialis) 5 mg PO DAILY HPI Comments Details: 04/11/24--Yazan is a 64-year-old male who is here for evaluation due to low testosterone and ED. he was initially evaluated on 02/10/2024 and prescribed Cialis 5 mg daily. Follow-up testosterone levels discussed. The patient states he has noticed improvement in erectile function on daily Cialis. At this time we will hold on further therapy including testosterone replacement therapy. Review of chart: 02/10/2024--Yazan is a 63-year-old male who is here for evaluation due to low testosterone. He states that he has had decreased energy. He has had concerns regarding erectile function as well. He has used Cialis 20 mg half a tab p.r.n. which has been helpful. I have reviewed lab work total testosterone and free testosterone are low. I have discussed repeating the testosterone levels as well as additional hormone levels, FSH, LH, prolactin, estradiol. I have discussed daily Cialis 5 mg to see if this therapy would the a better management for ED. 12/08/2023--total testosterone--166, free testosterone -30.9 04/21/23--PSA--0.25 PFSH Medical History Erectile dysfunction Arthritis Hypertriglyceridemia Hyperlipidemia HTN (hypertension) Surgical History History of esophagogastroduodenoscopy (EGD) History of surgery on right wrist (~1988) H/O colonoscopy History of surgery on arm History of hernia surgery History of knee surgery History of back surgery Family History Father No problems noted. Mother No problems noted. 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 Current occupational exposures/hazards: No Cognitive needs: No Hearing needs: No Vision needs: No Review of Systems Const All systems reviewed & are unremarkable except as noted in HPI and below Reports no additional complaints Eyes Reports no additional complaints ENT Reports no additional complaints Card Reports no additional complaints Resp Reports no additional complaints GI Reports no additional complaints Reports as per HPI Musc Reports no additional complaints Skin/Breast Reports system reviewed and no additional complaints, except as documented Neuro Reports no additional complaints Psych Reports no additional complaints Endo Reports no additional complaints Alexandre/Lymph Reports no additional complaints Aller/Immun Reports no additional complaints Results AMB Urinalysis, Automated UA Leukoctes 0 Atul/uL Last Edit by CONCETTA Michele on 04/11/24 15:58 UA Nitrite Negative Last Edit by CONCETTA Michele on 04/11/24 15:58 UA Urobilinogen 0.2 mg/dL Last Edit by CONCETTA Michele on 04/11/24 15:58 UA Protein 0 mg/dL Last Edit by CONCETTA Michele on 04/11/24 15:58 UA pH 6.0 Last Edit by CONCETTA Michele on 04/11/24 15:58 UA Blood 25 Harmeet/uL Last Edit by CONCETTA Michele on 04/11/24 15:58 UA Specific [place] 1.030 Last Edit by CONCETTA Michele on 04/11/24 15:58 UA Ketone Positive Last Edit by CONCETTA Michele on 04/11/24 15:58 UA Bilirubin 0 mg/dL Last Edit by CONCETTA Michele on 04/11/24 15:58 UA Glucose 0 mg/dL Last Edit by CONCETTA Michele on 04/11/24 15:58 Results Reviewed Results Reviewed: Laboratory Last Values Urine pH (Auto) 6.0 04/11/24 15:57 Specific [place] (Auto) 1.030 04/11/24 15:57 Urine Protein (Auto) 0 mg/dL 04/11/24 15:57 Glucose (UA)(Auto) 0 mg/dL 04/11/24 15:57 Urine Ketones (Auto) Positive 04/11/24 15:57 Urine Blood (Auto) 25 [place]/uL 04/11/24 15:57 Urine Nitrite (Auto) Negative 04/11/24 15:57 Urine Bilirubin (Auto) 0 mg/dL 04/11/24 15:57 Urine Urobilinogen (Auto) 0.2 mg/dL 04/11/24 15:57 Leukocyte Esterase (Auto) 0 Atul/uL 04/11/24 15:57 Assessment & Plan Assessment & Plan (1) Erectile dysfunction: Code(s): N52.9 - Male erectile dysfunction, unspecified Category: Medical (2) Screening for prostate cancer: Code(s): Z12.5 - Encounter for screening for malignant neoplasm of prostate Category: Medical Plan Discussed testosterone level remains low but other hormone values are within normal limits. The patient is doing well with the daily Cialis 5 mg. He denies any other symptoms. Will hold on testosterone replacement. Orders: Orders AMB Urinalysis Automated 04/11/24 Z13.9 - Encounter for screening, unspecified Medications: Refilled tadalafil (Cialis) [id number] [facility] [id number] Member [id number] 5 mg PO DAILY 30 tabs 7RF Patient Instructions: The patient had an opportunity to ask questions regarding treatment plan. The patient expressed understanding and agreement with the above treatment plan. The patient is aware they should contact our office by phone for worsening of their current condition or the appearance of new symptoms. Compliance is encouraged with any medications and followup testing that is ordered. It is a privilege to be allowed the opportunity to participate in the urologic care of your patient. If you have any questions or concerns regarding treatment for the above conditions please do not hesitate to contact me. The office telephone contact is [phone]. This note is constructed in part using voice recognition software. While every effort has been made to ensure accuracy solutions sales consultant errors may have been included. Yours sincerely, Mandeep Muse MD Coding Level of Care Code Est Pt Level 3 (03368) Diagnoses Erectile dysfunction N52.9 Screening for prostate cancer Z12.5
== END 2024-04-11 16:04 | disposition home or self-care (01) ==
PROVIDERS: PCP Family Medicine; Visit Provider Urology
DX: N52.9 Male erectile dysfunction, unspecified (principal); Z12.5 Encounter for screening for malignant neoplasm of prostate
CPT/HCPCS: 99213

== ENCOUNTER → 2024-04-11 15:39 | Outpatient (BNVA) | payer OTHER, SELFPAY | PROVIDERS: PCP Family Medicine; Visit Provider Urology | DX: Z12.5 Encounter for screening for malignant neoplasm of prostate (principal); N52.9 Male erectile dysfunction, unspecified | CPT/HCPCS: 81003; 99212 ==

== ENCOUNTER 2024-04-21 12:51 | Outpatient (AMB) | payer OTHER, SELFPAY ==
--- NOTE | 2024-04-21 12:58 | MHC.OFFVIS ---
Intake Visit Reasons: PO RT knee 04/08/24 , Low back pain radiating to right leg Intake Note: Yazan is a 64 yo male who presents with complaints of progressively worsening low back pain which radiates down his right leg. The patient did undergo right knee arthroscopic surgery on 04/08/2024. He reports mild intermittent discomfort in his right knee. He denies any fevers or chills. The patient states that he did undergo low back surgery at [facility] many years ago. Over the last year his back pain has gotten worse in spite of continued non operative treatments. He has been seeing a chiropractor 1-2 times weekly. The treatments give him only mild relief. He also reports intermittent weakness in his right leg. His symptoms have gotten worse in spite of the last 6 weeks of conservative treatment. He has tried Tylenol and naproxen which gave him minimal relief. Allergies No Known Allergies Allergy (Verified 04/21/24 12:58) Medication List - Last Reconciled 04/21/24 by Collin Wetzel MD lisinopril-hydrochlorothiazide 10-12.5 mg 1 tab PO DAILY 30 days naproxen 500 mg PO BID PRN 90 days oxycodone 5 mg PO Q6H PRN 5 days simvastatin 40 mg PO BEDTIME tadalafil (Cialis) 5 mg PO DAILY PFSH Medical History Erectile dysfunction Arthritis Hypertriglyceridemia Hyperlipidemia HTN (hypertension) Surgical History History of esophagogastroduodenoscopy (EGD) History of surgery on right wrist (~1988) H/O colonoscopy History of surgery on arm History of hernia surgery History of knee surgery History of back surgery Family History Father No problems noted. Mother No problems noted. 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 Current occupational exposures/hazards: No Cognitive needs: No Hearing needs: No Vision needs: No Physical Exam Const Other: Well-nourished well-developed very friendly male awake alert and oriented x3 in no acute distress Back/Spine/Pelvis Other: Low back examination shows right-sided paraspinal muscle tenderness, pain with range of motion, positive straight leg raise test on the right at 70 degrees, 4/5 strength with testing of his right hip flexors and knee extensors when compared to 5/5 strength on his left side Extrem Other: Right knee examination shows that the surgical incisions are well healed, no erythema, minimal discomfort with range of motion, minimal crepitus with range of motion, no instability Assessment & Plan Assessment & Plan (1) Right knee pain: Code(s): M25.561 - Pain in right knee Category: Medical (2) Low back pain radiating to right leg: Code(s): M54.50 - Low back pain, unspecified; M79.604 - Pain in right leg Category: Medical Plan Mr. Mars is doing well after undergoing right knee arthroscopic surgery on 04/08/2024. His sutures were removed and Steri-Strips placed over his incisions. The patient does have progressively worsening low back pain which radiates down his right leg as well as associated right leg weakness most likely due to lumbar stenosis or a disc herniation. Thus, I will send the patient for an MRI of his lumbar spine for further evaluation. I will see him back once the MRI is completed to discuss the findings. Will call me prior to that time should his symptoms worsen in any way. Feel free to call me at any time should questions regarding his orthopedic management arise. I spent 21 minutes in reviewing the patient's records and imaging studies, seeing the patient and documenting in the medical record. Orders: Orders MR lumbar spine wo con Today M54.50 - Low back pain, unspecified, M79.604 - Pain in right leg Coding Level of Care Code Est Pt Level 3 (17119) Diagnoses Right knee pain M25.561 Low back pain radiating to right leg M54.50; M79.604
== END 2024-04-21 13:17 | disposition home or self-care (01) ==
PROVIDERS: PCP Family Medicine; Visit Provider Orthopaedic Surgery
DX: M54.50 Low back pain, unspecified (principal); S83.241D Other tear of medial meniscus, current injury, right knee, subsequent encounter; M79.604 Pain in right leg
CPT/HCPCS: 99213

== ENCOUNTER → 2024-04-21 12:51 | Outpatient (BNVA) | payer OTHER, SELFPAY | PROVIDERS: PCP Family Medicine; Visit Provider Orthopaedic Surgery | DX: M25.561 Pain in right knee (principal); M54.50 Low back pain, unspecified; M79.604 Pain in right leg | CPT/HCPCS: 99212 ==

== ENCOUNTER → 2024-05-29 11:21 | Outpatient (BNV) | payer OTHER, SELFPAY | PROVIDERS: PCP Family Medicine; Visit Provider Radiology Diagnostic Radiology | DX: M54.50 Low back pain, unspecified (principal) | CPT/HCPCS: 72148 ==

== ENCOUNTER 2024-05-29 11:26 | Outpatient (REF) | payer OTHER, SELFPAY ==
--- NOTE | ~2024-05-29 | MR_ITS ---
EXAMINATION: MR LUMBAR SPINE WITHOUT CONTRAST CLINICAL INFORMATION: 64-year-old male, low back pain, unspecified. Patient states prior surgery L4-L5. Low back pain radiating to right lower extremity. COMPARISON: No priors. TECHNIQUE: Multiplanar multisequence MR imaging of the lumbar spine was done without IV contrast. Examination was performed on a 1.5 Janelle Siemens magnet, utilizing standard sequences. FINDINGS: CORONAL ALIGNMENT: -Trace dextroconvex scoliosis, apex at L3. SAGITTAL ALIGNMENT: - There is a normal lordosis. Stairstep type 3 mm degenerative retrolistheses of L1 on L2, L2 on L3, and L3 on L4. -Alignment otherwise anatomic. LUMBOSACRAL JUNCTION: -Normal. There are 5 ibq-jnb-vztfnsv lumbar-type vertebral bodies. VERTEBRAL BODIES/BONE MARROW: -There is a prominent hemangioma in the right aspect of L4. -There are mild fatty type endplate changes at L1-L2 anteriorly, and mild edematous type endplate changes present at L3-4, and to a lesser extent in the right aspect of L5-S1. -There are Schmorl's nodes in the right endplates of L5-S1. -There is mild edema within the pedicles of L4 and L5, likely a stress response. DISCS: -Moderate to severe loss of disc height and signal at L5-S1. -Mild to moderate loss at T11-T12, and L1-L5. -There is relative sparing of T12-L1. 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 -Otherwise, spinal canal with no developmental abnormality. CONUS MEDULLARIS: -Terminates at inferior endplate of T12. Morphology and signal is normal. INTRADURAL NERVE ROOTS: - Within normal limits. Axial Disc Space Images: T11-T12: There is a small right lateral disc protrusion with annular fissuring. No significant mass effect. Mild facet degeneration bilaterally. Minimal central canal narrowing, and mild bilateral neural foraminal narrowing. T12-L1: No central canal or neural foraminal narrowing. L1-L2: 3 mm retrolisthesis. There is a diffuse concentric disc bulge present with superimposed bilateral foraminal and lateral to foramen extrusion of disc material. Annular fissuring noted right foraminal zone. There are mild hypertrophic degenerative facet changes, mild posterior ligamentous thickening/infolding, with a combination of findings resulting in mild central canal narrowing, mild to moderate left and mild right subarticular recess narrowing, with contact but no definite impingement of the traversing L3 roots. There is moderate right greater than left neural foraminal narrowing. L2-L3: 3 mm retrolisthesis. There is a diffuse bulging disc with a superimposed left lateral and foraminal disc protrusion, and also a small right foraminal protrusion with annular fissuring. These extend lateral to foramen on both sides. There are mild hypertrophic degenerative facet changes with mild posterior ligamentous thickening/infolding. There is contact and posterior displacement of the left traversing L3 roots, and contact but no displacement of the traversing right L3 roots. There is mild central canal stenosis. There is moderate bilateral foraminal stenosis with contact but no mass effect or impingement upon the exiting bilateral L2 roots. L3-L4: 3 mm retrolisthesis. There is a shallow bulging disc present with superimposed left greater than right foraminal and lateral to foramen disc osteophytic broad-based protrusions. There are moderate hypertrophic degenerative facet changes bilaterally, with posterior ligamentous thickening/infolding. Combination of findings resulting in mild to moderate central canal stenosis, moderate left greater than right subarticular recess stenosis, with contact and mass effect upon the traversing left greater than right L4 roots. There may be impingement of the traversing left L4 root. There is moderate to severe left and moderate right neural foraminal stenosis. There is contact and mass effect upon the exiting left L3 root. L4-L5: There is a diffuse disc bulge concentrically involving both foraminal zones, with a superimposed right foraminal and lateral to foramen disc osteophytic protrusion. There are moderate hypertrophic right greater than left facet changes present, with evidence for prior left hemilaminotomy and resection of the left ligamentum flavum. Combination of findings is resulting in dasd-vi-aoqlbair central canal narrowing, moderate right subarticular recess narrowing, mild left subarticular recess narrowing with decompression, and mild mass effect upon the traversing right L5 roots. No definite mass effect upon the traversing left L3 roots. There is moderate right and mild left neural foraminal narrowing. There is contact without impingement of the exiting right L4 root. L5-S1: Severe disc degeneration at this level. There is a diffuse disc osteophytic ridge complex present with a subtle superimposed central extrusion of disc material, and right foraminal and lateral to foramen extrusion of disc material. Combination with rdlb-kz-[id number] hypertrophic degenerative facet changes, and posterior ligamentous thickening/infolding is resulting in mild central canal stenosis, mild bilateral subarticular recess narrowing left greater than right, with contact and mild mass effect upon the traversing right S1 root. Mild contact and mass effect upon the traversing left S1 root. There is moderate to severe left and moderate right neural foraminal narrowing, with mild contact and mild mass effect upon the exiting left greater than right L5 nerve roots. IMAGED SI JOINTS: -Evow-od-ikabqfbj degenerative arthrosis bilaterally. PARAVERTEBRAL AND INCLUDED EXTRASPINAL SOFT TISSUES: -Mild denervation atrophy of the inferior paraspinous musculature at L5-S1 and more inferiorly. -Aorta is normal in caliber but partially obscured by a saturation band. -There are small parapelvic and right cortical renal cysts. There are extrarenal pelves. Circumaortic left renal vein. MR/MR lumbar spine wo con IMPRESSION: 1. Moderate multilevel lumbar spondylosis as described, with evidence for prior left hemilaminotomy at L4-5. 2. There is no high-grade central canal stenosis. Mild to moderate central canal narrowing noted L3-4 and L4-5. 3. Subarticular recess narrowing at L3-4, L4-5, and L5-S1 as described. Neural foraminal narrowing also present at these levels as described. 4. Mild edematous endplate changes at L3-4, and on the left at L5-S1. 5. See the body of the report for details and additional ancillary findings. Electronically signed by: Surjit Calle MD 06/24/2024 02:20 PM EDT
== END 2024-05-29 11:27 | disposition home or self-care (01) ==
LOC: HO.MRI 11:26
PROVIDERS: PCP Family Medicine; Visit Provider Orthopaedic Surgery
DX: M54.50 Low back pain, unspecified (principal); M79.604 Pain in right leg
CPT/HCPCS: 72148

== ENCOUNTER 2024-06-23 07:52 | Outpatient (AMB) | payer OTHER, SELFPAY ==
--- NOTE | 2024-06-23 07:53 | MHC.OFFVIS ---
Intake Visit Reasons: low back pain Intake Note: Yazan is a 64 yo male who presents with complaints of progressively worsening low back pain which radiates down his right leg. The patient did undergo right knee arthroscopic surgery on 04/08/2024. He reports mild intermittent discomfort in his right knee. He denies any fevers or chills. The patient states that he did undergo low back surgery at [facility] many years ago. Over the last year his back pain has gotten worse in spite of continued non operative treatments. He has been seeing a chiropractor 1-2 times weekly. The treatments give him only mild relief. He also reports intermittent weakness in his right leg. His symptoms have gotten worse in spite of the last 6 weeks of conservative treatment. He has tried Tylenol and naproxen which gave him minimal relief. Allergies No Known Allergies Allergy (Verified 06/23/24 07:57) Medication List - Last Reconciled 06/23/24 by Collin Wetzel MD lisinopril-hydrochlorothiazide 10-12.5 mg 1 tab PO DAILY 30 days naproxen 500 mg PO BID PRN 90 days oxycodone 5 mg PO Q6H PRN 5 days simvastatin 40 mg PO BEDTIME tadalafil (Cialis) 5 mg PO DAILY PFSH Medical History Erectile dysfunction Arthritis Hypertriglyceridemia Hyperlipidemia HTN (hypertension) Surgical History History of esophagogastroduodenoscopy (EGD) History of surgery on right wrist (~1988) H/O colonoscopy History of surgery on arm History of hernia surgery History of knee surgery History of back surgery Family History Father No problems noted. Mother No problems noted. 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 Current occupational exposures/hazards: No Cognitive needs: No Hearing needs: No Vision needs: No Physical Exam Const Other: Well-nourished well-developed very friendly male awake alert and oriented x3 in no acute distress Back/Spine/Pelvis Other: Low back examination shows right-sided paraspinal muscle tenderness, pain with range of motion, positive straight leg raise test on the right at 70 degrees Results Reviewed Results Reviewed: MRI of the patient's lumbar spine shows evidence of diffuse degenerative disc disease as well as lumbar stenosis Assessment & Plan Assessment & Plan (1) Low back pain radiating to right leg: Code(s): M54.50 - Low back pain, unspecified; M79.604 - Pain in right leg Category: Medical Plan Mr. Mars presents with intermittent low back pain which radiates into his right leg most likely due to lumbar stenosis. Thus, I will arrange for the patient to have a consultation in our neurosurgery department here at [facility]. The patient is not sure if he is interested in surgery at this time but he would like to become established with our neurosurgery group. He will contact me prior to that appointment should his symptoms worsen in any way. Feel free to call me at any time should questions regarding his orthopedic management arise. I spent 22 minutes in reviewing the patient's records and imaging studies, seeing the patient and documenting in the medical record. Orders: Referrals Neuro Spine Referral M54.50 - Low back pain, unspecified, M79.604 - Pain in right leg Coding Level of Care Code Est Pt Level 3 (47968) Complex EM visit Add On G2211 Diagnoses Low back pain radiating to right leg M54.50; M79.604
== END 2024-06-23 08:06 | disposition home or self-care (01) ==
PROVIDERS: PCP Family Medicine; Visit Provider Orthopaedic Surgery
DX: M54.50 Low back pain, unspecified (principal); M79.604 Pain in right leg
CPT/HCPCS: 99213; G2211

== ENCOUNTER → 2024-06-23 07:52 | Outpatient (BNVA) | payer OTHER, SELFPAY | PROVIDERS: PCP Family Medicine; Visit Provider Orthopaedic Surgery | DX: M54.50 Low back pain, unspecified (principal); M79.604 Pain in right leg | CPT/HCPCS: 99212 ==

== ENCOUNTER 2024-07-04 08:52 | Outpatient (AMB) | payer OTHER, SELFPAY ==
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
== END 2024-07-04 09:18 | disposition home or self-care (01) ==
PROVIDERS: PCP Family Medicine; Referring Provider Orthopaedic Surgery; Visit Provider Physician Assistant
DX: M54.50 Low back pain, unspecified (principal); M79.604 Pain in right leg
CPT/HCPCS: 99204

== ENCOUNTER → 2024-07-04 08:52 | Outpatient (BNVA) | payer OTHER, SELFPAY | PROVIDERS: PCP Family Medicine; Referring Provider Orthopaedic Surgery; Visit Provider Physician Assistant | DX: M54.50 Low back pain, unspecified (principal); M79.604 Pain in right leg | CPT/HCPCS: 99202 ==

== ENCOUNTER 2024-07-13 11:22 | Outpatient (AMB) | payer OTHER, SELFPAY ==
--- NOTE | 2024-07-13 11:30 | MHC.PC.OV ---
Vital Signs 07/13/24 11:31 Height 5 ft 10 in Weight 194 lb BMI 27.8 BP 134/64 Blood Pressure Location Lt brachial Position Sitting Respiration 14 Pulse 78 Pulse Source Pulse Oximeter Temp 97.3 F Temp Source Temporal Artery Scan Pulse Oximetry (%) 95 Oxygen Delivery Method Room Air Intake Visit Reasons: f/u HTN Intake Note: F/U HTN Allergies No Known Allergies Allergy (Verified 07/13/24 11:30) Medication List - Last Reconciled 07/13/24 by Poncho Herbert MD diclofenac sodium 1% (Voltaren Arthritis Pain) 2 grams topical QID 30 days lisinopril-hydrochlorothiazide 10-12.5 mg 1 tab PO DAILY 30 days naproxen 500 mg PO BID PRN 90 days omeprazole 20 mg PO DAILY 30 days oxycodone 5 mg PO Q6H PRN 5 days peg 3350-electrolytes 236-22.74-6.74 -5.86 gram (Golytely) 240 mL PO Q10M simvastatin 40 mg PO BEDTIME tadalafil (Cialis) 5 mg PO DAILY Tobacco use date assessed: 12/09/23 Dental Screening Dental Screen Date: 12/09/23 HPI f/u HTN HPI Details 64 y/o male presents to f/u hypertension. Blood pressure today 134/64, 78p. He is on lisinopril-hydrochlorothiazide 10-12.5mg daily. Reports ongoing back pain. [facility] Medical History Erectile dysfunction Arthritis Hypertriglyceridemia Hyperlipidemia HTN (hypertension) Surgical History History of esophagogastroduodenoscopy (EGD) History of surgery on right wrist (~1988) H/O colonoscopy History of surgery on arm History of hernia surgery History of knee surgery History of back surgery Family History Father No problems noted. Mother No problems noted. 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 1. Little interest or pleasure in doing things: not at all 2. Feeling down, depressed, or hopeless: not at all 3. Trouble falling or staying asleep, or sleeping too much: not at all 4. Feeling tired or having little energy: not at all 5. Poor appetite or overeating: not at all 6. Feeling bad about yourself - or that you are a failure or have let yourself or your family down: not at all 7. Trouble concentrating on things, such as reading the newspaper or watching television: not at all 8. Moving or speaking so slowly that other people could have noticed. Or the opposite - being so fidgety or restless that you have been moving around a lot more than usual: not at all 9. Thoughts that you would be better off or of hurting yourself in some way: not at all Total score: 0 Source: Developed by Drs. Mina Conway, Jayde Streeter, Celso Johnson and colleagues, with an educational margarita from [employer]. Thrive Questionnaire Date Thrive assessed: 07/06/24 I am a: Patient What is your living situation today?: I have a steady place to live Within the past 12 months, did the food you bought not last and you didn't have the money to get more?: Never true Within the past 12 months, did you worry whether your food would run out before you got money to buy more?: Never true Do you have trouble paying for medicines?: No Do you have trouble getting transportation to medical appointments?: No Do you have trouble paying your heating and electricity bill?: No Do you have trouble taking care of your child, family member or friend?: No Do you have trouble with day-to-day activities such as bathing, preparing meals, shopping, managing finances, etc.?: No Are you currently unemployed and looking for a job?: No Are you interested in more education?: No Please select the resources that you would like help with: None Currently or been in a relationship where the following occur: No concerns reported THRIVE Score: 0 AUDIT C Alcohol Use Questionnaire (AUDIT-C) 1. How often do you have a drink containing alcohol?: 2-4 times a month 2. How many drinks containing alcohol do you have on a typical day when you are drinking?: 1 or 2 Total Score: 2 JAMARI-7 AMB Questionnaire JAMARI-7 Date JAMARI - 7 assessed: 12/09/23 Feeling nervous, anxious, or on edge: 0 = Not at all Not being able to stop or control worryin = Not at all Worrying too much about different things: 0 = Not at all Trouble relaxin = Not at all Being so restless that it is hard to sit still: 0 = Not at all Becoming easily annoyed or irritable: 0 = Not at all Feeling afraid as if something awful might happen: 0 = Not at all Total JAMARI-7 score (0-4 normal; 5-9 mild; 10-14 moderate; 15-21 severe): 0 Source: Developed by Drs. Mina Conway, Jayde Streeter, Celso Johnson and colleagues, with an educational margarita from [employer]. Review of Systems Const Denies chills, Denies fatigue, Denies fever(s), Denies headache(s) and Denies weakness ENT Denies dizziness and Denies headache(s) Card Denies chest pain, Denies lightheadedness, Denies dyspnea and Denies other (Palpitations) Resp Denies cough, Denies dyspnea, Denies wheezing and Denies other ( shortness of breath) Musc Reports back pain, Denies numbness and Denies tingling Neuro Denies dizziness, Denies headache(s), Denies numbness, Denies tingling, Denies paresthesias and Denies weakness Psych Denies anxiety and Denies depression Endo Denies fatigue Aller/Immun Denies wheezing Physical exam (Primary Care) Vital Signs: Last Vital Signs Temp 97.3 F 07/13/24 11:31 Pulse 78 07/13/24 11:31 Resp 14 07/13/24 11:31 BP 134/64 07/13/24 11:31 Pulse Ox 95 07/13/24 11:31 Oxygen Delivery Method Room Air 07/13/24 11:31 BMI result Body Mass Index 27.8 Tobacco/Smoking Status: Tobacco use Status Tobacco use date assessed 12/09/23 07/13/24 11:34 Patient Tobacco Use Status Former Tobacco user 07/13/24 11:34 Tobacco use type Cigarette 07/13/24 11:34 e-Cigarette/Vaping Use Never Used 07/13/24 11:34 PHQ-9: PHQ-9 Score PHQ-9: Total score 0 07/13/24 11:59 Thrive Assessment: Date of Thrive Assessment Date Thrive assessed 07/06/24 07/13/24 11:34 Currently or been in a relationship where the following occur: No concerns reported Const General: no acute distress and well developed Nutritional Appearance: well nourished Orientation/consciousness: patient oriented x3 HENMT Head: Yes normocephalic and Yes atraumatic Eyes General: appearance normal, both eyes and all related structures Pupils: Equal, round and reactive pupils present EOM: EOMs intact bilaterally Resp Effort & Inspection: normal respiratory effort Auscultation: clear to auscultation bilaterally Cardio Rate: regular rate Rhythm: regular rhythm Heart sounds: S1 normal heart sound present, S2 normal heart sound present, no gallops, no murmurs and no rubs Neuro General: patient oriented x3 and gait normal Cranial nerves: Yes Equal, round and reactive pupils present Psych Affect: normal affect Coding Level of Care Code Est Pt Level 3 (79194) Diagnoses Essential hypertension I10 Low back pain radiating to right leg M54.50; M79.604 Assessment & Plan Assessment & Plan (1) Essential hypertension: Code(s): I10 - Essential (primary) hypertension Category: Medical Plan: Blood?pressure?is?controlled.??Goal?is?less?than?140/90 Continue?current?medication Encouraged?diet?low?in?sodium/salt Encouraged?exercise?and?some?weight?loss (2) Low back pain radiating to right leg: Code(s): M54.50 - Low back pain, unspecified; M79.604 - Pain in right leg Category: Medical Plan: Fairly?well?controlled?currently Followed?by?[facility] Recommended?keeping?core?muscles?and?low?back?muscles?strong Continue?Voltaren?gel Follow-up?with?ortho?as?recommended Medications: Refilled omeprazole 20 mg PO DAILY 30 caps 4RF 30 days diclofenac sodium 1% (Voltaren Arthritis Pain) apply to single elbow, wrist or hand; for hand includes palm/fingers/back of hand 2 grams topical QID 200 grams 3RF 30 days
[2024-07-13 11:31] VITALS: BP 134/64; PULSE 78; RESP 14; TEMP 36.3; O2SAT 95; BMI 27.8
== END 2024-07-13 12:06 | disposition home or self-care (01) ==
LOC: HO.HMCFM 11:23
PROVIDERS: PCP Family Medicine; Visit Provider Family Medicine
DX: I10 Essential (primary) hypertension (principal); M54.50 Low back pain, unspecified; M79.604 Pain in right leg

== ENCOUNTER → 2024-07-13 11:22 | Outpatient (BNVA) | payer OTHER, SELFPAY | PROVIDERS: PCP Family Medicine; Visit Provider Family Medicine | DX: I10 Essential (primary) hypertension (principal); M54.50 Low back pain, unspecified; M79.604 Pain in right leg | CPT/HCPCS: 96127; 99212 ==

== ENCOUNTER 2024-09-27 07:37 | Outpatient (AMB) | payer OTHER, SELFPAY ==
--- NOTE | 2024-09-27 07:45 | A.OFFVIS_ITS ---
Vital Signs 09/27/24 07:48 Height 5 ft 10 in Weight 194 lb BMI 27.8 Intake Visit Reasons: Bilateral knee pains Intake Note: Yazan is a 64 yo male who presents with complaints of bilateral knee pains. The patient describes his pains as sharp in nature. He has undergone bilateral knee arthroscopic surgeries in the past. He got temporary relief from those procedures. He has failed the last 3 months of conservative treatment which has included Tylenol, anti-inflammatory medicines, physical therapy exercises and topical Voltaren gel. He has had cortisone injections in the past. The most recent injection gave him minimal relief. He has also had viscosupplementation injections which have given him good relief. He wishes to hold off on total knee replacement surgery for as long as possible. Allergies No Known Allergies Allergy (Verified 09/27/24 07:48) Medication List - Last Reconciled 09/27/24 by Collin Wetzel MD diclofenac sodium 1% (Voltaren Arthritis Pain) 2 grams topical QID 30 days lisinopril-hydrochlorothiazide 10-12.5 mg 1 tab PO DAILY 30 days naproxen 500 mg PO BID PRN 90 days omeprazole 20 mg PO DAILY 30 days oxycodone 5 mg PO Q6H PRN 5 days peg 3350-electrolytes 236-22.74-6.74 -5.86 gram (Golytely) 240 mL PO Q10M simvastatin 40 mg PO BEDTIME tadalafil (Cialis) 5 mg PO DAILY PFSH Medical History Erectile dysfunction Arthritis Hypertriglyceridemia Hyperlipidemia HTN (hypertension) Surgical History History of esophagogastroduodenoscopy (EGD) History of surgery on right wrist (~1988) H/O colonoscopy History of surgery on arm History of hernia surgery History of knee surgery History of back surgery Family History Father No problems noted. Mother No problems noted. 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 Current occupational exposures/hazards: No Cognitive needs: No Hearing needs: No Vision needs: No Physical Exam Vital Signs: BMI result Body Mass Index 27.8 Const Other: Well-nourished well-developed very friendly male awake alert and oriented x3 in no acute distress Extrem Other: Bilateral lower extremity examination shows good capillary refill, no skin lesions noted, normal sensation light touch Bilateral knee examination shows minimal effusions, palpable crepitus with range of motion, pain with range of motion, range of motion from -3 degrees to 115 degrees, no instability Results Reviewed Results Reviewed: Standing full weight-bearing x-rays of the patient's bilateral knees taken previously show joint space narrowing, subchondral sclerosis, no acute bony abnormalities Assessment & Plan Assessment & Plan (1) Osteoarthritis of left knee: Code(s): M17.12 - Unilateral primary osteoarthritis, left knee Category: Medical (2) Osteoarthritis of right knee: Code(s): M17.11 - Unilateral primary osteoarthritis, right knee Category: Medical Plan Mr. Mars presents with bilateral knee pains due to osteoarthritis. I had a lengthy discussion with the patient regarding the treatment options. He wishes to hold off on total knee replacement surgery for as long as possible. I agree with this plan. He has not gotten good relief from cortisone injections in the past. Thus, I will see whether or not his insurance company will cover a viscosupplementation injection for both of his knees. I will see him back once the injections are available. Feel free to call me at any time should questions regarding his orthopedic management arise. I spent 21 minutes in reviewing the patient's records and imaging studies, seeing the patient and documenting in the medical record. Coding Level of Care Code Est Pt Level 3 (86976) Complex EM visit Add On G2211 Diagnoses Osteoarthritis of left knee M17.12 Osteoarthritis of right knee M17.11
[2024-09-27 07:48] VITALS: BMI 27.8
== END 2024-09-27 08:15 | disposition home or self-care (01) ==
PROVIDERS: PCP Family Medicine; Visit Provider Orthopaedic Surgery
DX: M17.0 Bilateral primary osteoarthritis of knee (principal)
CPT/HCPCS: 99213; G2211

== ENCOUNTER → 2024-09-27 07:37 | Outpatient (BNVA) | payer OTHER, SELFPAY | PROVIDERS: PCP Family Medicine; Visit Provider Orthopaedic Surgery | DX: M17.0 Bilateral primary osteoarthritis of knee (principal) | CPT/HCPCS: 99212 ==

== ENCOUNTER 2024-10-12 08:06 | Outpatient (AMB) | payer OTHER, SELFPAY ==
--- NOTE | 2024-10-12 08:08 | MHC.OFFVIS ---
Vital Signs 10/12/24 08:10 Height 5 ft 10 in Weight 194 lb BMI 27.8 Intake Visit Reasons: Bilateral knee pains Intake Note: Yazan is a 64 year old male who presents with complaints of progressively worsening bilateral knee pains. He describes his pains as sharp and severe in nature. He has had cortisone injections which gave him minimal relief. He has also had viscosupplementation injections which gave him fairly good relief. He wishes to hold off on surgery if at all possible. Has tried Tylenol and anti-inflammatory medicines which gave him minimal relief. He has also done physical therapy exercises which aggravated his pain. Allergies No Known Allergies Allergy (Verified 10/12/24 08:10) Medication List - Last Reconciled 10/12/24 by Collin Wetzel MD diclofenac sodium 1% (Voltaren Arthritis Pain) 2 grams topical QID 30 days lisinopril-hydrochlorothiazide 10-12.5 mg 1 tab PO DAILY 30 days naproxen 500 mg PO BID PRN 90 days omeprazole 20 mg PO DAILY 30 days oxycodone 5 mg PO Q6H PRN 5 days peg 3350-electrolytes 236-22.74-6.74 -5.86 gram (Golytely) 240 mL PO Q10M simvastatin 40 mg PO BEDTIME tadalafil (Cialis) 5 mg PO DAILY PFSH Medical History Erectile dysfunction Arthritis Hypertriglyceridemia Hyperlipidemia HTN (hypertension) Surgical History History of esophagogastroduodenoscopy (EGD) History of surgery on right wrist (~1988) H/O colonoscopy History of surgery on arm History of hernia surgery History of knee surgery History of back surgery Family History Father No problems noted. Mother No problems noted. 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 Current occupational exposures/hazards: No Cognitive needs: No Hearing needs: No Vision needs: No Physical Exam Vital Signs: BMI result Body Mass Index 27.8 Const Other: Well-nourished well-developed very friendly male awake alert and oriented x3 in no acute distress Extrem Other: Bilateral lower extremity examination shows good capillary refill, no skin lesions noted, normal sensation light touch Bilateral knee examination shows minimal effusions, palpable crepitus with range of motion, pain with range of motion, no instability Office Procedures AMB Joint Injection/Aspiration Joint Injection/Aspiration Primary Site: right knee Prep: site was prepped using aseptic technique Injected: 20 mg of (Euflexxa viscosupplementation) and 1% plain lidocaine Procedure: The patient tolerated the procedure well Coding 63719 - Large joint Procedure code (CPT) selection complete AMB Joint Injection/Aspiration Joint Injection/Aspiration Primary Site: left knee Prep: site was prepped using aseptic technique Injected: 20 mg of (Euflexxa viscosupplementation) and 1% plain lidocaine Procedure: The patient tolerated the procedure well Coding 15723 - Large joint Procedure code (CPT) selection complete Results Reviewed Results Reviewed: X-rays of the patient's bilateral knees taken previously show joint space narrowing, subchondral sclerosis, no acute bony abnormalities Assessment & Plan Assessment & Plan (1) Osteoarthritis of left knee: Code(s): M17.12 - Unilateral primary osteoarthritis, left knee Category: Medical (2) Osteoarthritis of right knee: Code(s): M17.11 - Unilateral primary osteoarthritis, right knee Category: Medical Plan Mr. Mars presents with bilateral knee pains due to osteoarthritis. The risks and benefits of a series of Euflexxa injections were discussed at length with the patient. The patient wished to proceed. He tolerated the 1st set of injections well. He will continue with his home exercise program. He will follow up next week as scheduled. Feel free to call me at any time should questions regarding his orthopedic management arise. I spent 22 minutes in reviewing the patient's records and imaging studies, seeing the patient and documenting in the medical record. Orders: Orders AMB Joint Injection/Aspiration Today M17.12 - Unilateral primary osteoarthritis, left knee AMB Joint Injection/Aspiration Today M17.11 - Unilateral primary osteoarthritis, right knee Medications: New diclofenac sodium 1% (Arthritis Pain (diclofenac)) apply to effected areas as directed 2 grams topical QID 100 grams 3RF Coding Level of Care Code Est Pt Level 3 (05725) Complex EM visit Add On G2211 Diagnoses Osteoarthritis of left knee M17.12 Osteoarthritis of right knee M17.11 CPT Codes Coding - 44714 Large joint: 81085 - Large joint ([id number]) Coding - 48977 Large joint: 23668 - Large joint ([id number])
[2024-10-12 08:10] VITALS: BMI 27.8
== END 2024-10-12 08:37 | disposition home or self-care (01) ==
PROVIDERS: PCP Family Medicine; Visit Provider Orthopaedic Surgery
DX: M17.0 Bilateral primary osteoarthritis of knee (principal)
CPT/HCPCS: 20610; 99213

== ENCOUNTER → 2024-10-12 08:06 | Outpatient (BNVA) | payer OTHER, SELFPAY | PROVIDERS: PCP Family Medicine; Visit Provider Orthopaedic Surgery | DX: M17.0 Bilateral primary osteoarthritis of knee (principal) | CPT/HCPCS: 20610; 99212; J2003; J7323 ==

== ENCOUNTER → 2024-10-20 07:36 | Outpatient (AMB) | payer OTHER, SELFPAY ==
--- NOTE | 2024-10-20 07:39 | A.OFFVIS_ITS ---
Vital Signs 10/20/24 07:46 Height 5 ft 10 in Weight 194 lb BMI 27.8 Intake Visit Reasons: Inj- Bilateral Knee Euflexxa #2 Intake Note: Yazan is a 64 year old male who presents today for his second dose of Euflexxa gel injection on both of his knees. He states that he has gotten mild relief from the 1st set of injections. He continues with his home exercise program. Allergies No Known Allergies Allergy (Verified 10/20/24 07:46) Medication List - Last Reconciled 10/20/24 by Collin Wetzel MD diclofenac sodium 1% (Voltaren Arthritis Pain) 2 grams topical QID 30 days diclofenac sodium 1% (Arthritis Pain (diclofenac)) 2 grams topical QID lisinopril-hydrochlorothiazide 10-12.5 mg 1 tab PO DAILY 30 days naproxen 500 mg PO BID PRN 90 days omeprazole 20 mg PO DAILY 30 days oxycodone 5 mg PO Q6H PRN 5 days peg 3350-electrolytes 236-22.74-6.74 -5.86 gram (Golytely) 240 mL PO Q10M simvastatin 40 mg PO BEDTIME tadalafil (Cialis) 5 mg PO DAILY PFSH Medical History Erectile dysfunction Arthritis Hypertriglyceridemia Hyperlipidemia HTN (hypertension) Surgical History History of esophagogastroduodenoscopy (EGD) History of surgery on right wrist (~1988) H/O colonoscopy History of surgery on arm History of hernia surgery History of knee surgery History of back surgery Family History Father No problems noted. Mother No problems noted. 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 Current occupational exposures/hazards: No Cognitive needs: No Hearing needs: No Vision needs: No Physical Exam Vital Signs: BMI result Body Mass Index 27.8 Extrem Other: Bilateral knee examination shows minimal effusions, palpable crepitus with range of motion, pain with range of motion, no instability Office Procedures AMB Joint Injection/Aspiration Joint Injection/Aspiration Primary Site: right knee Prep: site was prepped using aseptic technique Injected: 20 mg of (Euflexxa viscosupplementation) and 1% plain lidocaine Procedure: The patient tolerated the procedure well Coding - Large joint Procedure code (CPT) selection complete AMB Joint Injection/Aspiration Joint Injection/Aspiration Primary Site: left knee Prep: site was prepped using aseptic technique Injected: 20 mg of (Euflexxa viscosupplementation) and 1% plain lidocaine Procedure: The patient tolerated the procedure well Coding - Large joint Procedure code (CPT) selection complete Assessment & Plan Assessment & Plan (1) Osteoarthritis of left knee: Code(s): M17.12 - Unilateral primary osteoarthritis, left knee Category: Medical (2) Osteoarthritis of right knee: Code(s): M17.11 - Unilateral primary osteoarthritis, right knee Category: Medical Plan Mr. Mars presents with bilateral knee pains due to osteoarthritis. The risks and benefits of a 2nd set of Euflexxa viscosupplementation injections were discussed at length with the patient. The patient wished to proceed. Tolerated the injections well. He will continue with his home exercise program. He will follow up next week as scheduled. Feel free to call me at any time should questions regarding his orthopedic management arise. Orders: Orders AMB Joint Injection/Aspiration Today M17.11 - Unilateral primary osteoarthritis, right knee AMB Joint Injection/Aspiration Today M17.12 - Unilateral primary osteoarthritis, left knee Coding Level of Care Code Procedure Only Diagnoses Osteoarthritis of left knee M17.12 Osteoarthritis of right knee M17.11 CPT Codes Coding - 61014 Large joint: 28716 - Large joint ([id number]) Coding - 61669 Large joint: 24344 - Large joint ([id number])
== END | disposition home or self-care (01) ==
PROVIDERS: PCP Family Medicine; Visit Provider Orthopaedic Surgery
CPT/HCPCS: 20610

== ENCOUNTER → 2024-10-20 07:36 | Outpatient (BNVA) | payer OTHER, SELFPAY | PROVIDERS: PCP Family Medicine; Visit Provider Orthopaedic Surgery | DX: M17.0 Bilateral primary osteoarthritis of knee (principal) | CPT/HCPCS: 20610; J2003; J7323 ==

== ENCOUNTER 2024-10-26 07:47 | Outpatient (AMB) | payer OTHER, SELFPAY ==
--- NOTE | 2024-10-26 07:49 | MHC.OFFVIS ---
Vital Signs 10/26/24 07:58 Height 5 ft 10 in Weight 194 lb BMI 27.8 Intake Visit Reasons: Inj- Bilateral Knee Euflexxa #3 Intake Note: Yazan is a 64 year old male who presents today for bilateral euflexxa injections #3. The patient states that he has gotten mild relief from the 1st 2 sets of injections. He denies any fevers or chills. He continues with his home exercise program. Allergies No Known Allergies Allergy (Verified 10/26/24 07:58) Medication List - Last Reconciled 10/26/24 by Collin Wetzel MD diclofenac sodium 1% (Voltaren Arthritis Pain) 2 grams topical QID 30 days diclofenac sodium 1% (Arthritis Pain (diclofenac)) 2 grams topical QID lisinopril-hydrochlorothiazide 10-12.5 mg 1 tab PO DAILY 30 days naproxen 500 mg PO BID PRN 90 days omeprazole 20 mg PO DAILY 30 days oxycodone 5 mg PO Q6H PRN 5 days peg 3350-electrolytes 236-22.74-6.74 -5.86 gram (Golytely) 240 mL PO Q10M simvastatin 40 mg PO BEDTIME tadalafil (Cialis) 5 mg PO DAILY PFSH Medical History Erectile dysfunction Arthritis Hypertriglyceridemia Hyperlipidemia HTN (hypertension) Surgical History History of esophagogastroduodenoscopy (EGD) History of surgery on right wrist (~1988) H/O colonoscopy History of surgery on arm History of hernia surgery History of knee surgery History of back surgery Family History Father No problems noted. Mother No problems noted. 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 Current occupational exposures/hazards: No Cognitive needs: No Hearing needs: No Vision needs: No Physical Exam Vital Signs: BMI result Body Mass Index 27.8 Extrem Other: Bilateral knee examination shows minimal effusions, palpable crepitus with range of motion, pain with range of motion, no instability Office Procedures AMB Joint Injection/Aspiration Joint Injection/Aspiration Primary Site: right knee Prep: site was prepped using aseptic technique Injected: 20 mg of (Euflexxa viscosupplementation) and 1% plain lidocaine Procedure: The patient tolerated the procedure well Coding - Large joint Procedure code (CPT) selection complete AMB Joint Injection/Aspiration Joint Injection/Aspiration Primary Site: left knee Prep: site was prepped using aseptic technique Injected: 20 mg of (Euflexxa viscosupplementation) and 1% plain lidocaine Procedure: The patient tolerated the procedure well Coding - Large joint Procedure code (CPT) selection complete Assessment & Plan Assessment & Plan (1) Osteoarthritis of left knee: Code(s): M17.12 - Unilateral primary osteoarthritis, left knee Category: Medical (2) Osteoarthritis of right knee: Code(s): M17.11 - Unilateral primary osteoarthritis, right knee Category: Medical Plan Mr. Mars presents with bilateral knee pains due to osteoarthritis. The risks and benefits of a 3rd set of Euflexxa injections were discussed at length with the patient. The patient wished to proceed. He tolerated the injections well. He will continue with his home exercise program. He will contact me prior to his follow-up appointment in 3 months should any questions or concerns arise. Feel free to call me at any time should questions regarding his orthopedic management arise. Orders: Orders AMB Joint Injection/Aspiration Today M17.12 - Unilateral primary osteoarthritis, left knee AMB Joint Injection/Aspiration Today M17.11 - Unilateral primary osteoarthritis, right knee Coding Level of Care Code Procedure Only Diagnoses Osteoarthritis of left knee M17.12 Osteoarthritis of right knee M17.11 CPT Codes Coding - 54719 Large joint: 70668 - Large joint ([id number]) Coding - 07748 Large joint: 35668 - Large joint ([id number])
[2024-10-26 07:58] VITALS: BMI 27.8
== END 2024-10-26 08:26 | disposition home or self-care (01) ==
PROVIDERS: PCP Family Medicine; Visit Provider Orthopaedic Surgery
DX: M17.0 Bilateral primary osteoarthritis of knee (principal)
CPT/HCPCS: 20610

== ENCOUNTER → 2024-10-26 07:47 | Outpatient (BNVA) | payer OTHER, SELFPAY | PROVIDERS: PCP Family Medicine; Visit Provider Orthopaedic Surgery | DX: M17.0 Bilateral primary osteoarthritis of knee (principal) | CPT/HCPCS: 20610; J2003; J7323 ==

== ENCOUNTER 2024-11-09 08:22 | Outpatient (AMB) | payer OTHER, SELFPAY ==
--- NOTE | 2024-11-09 08:33 | MHC.PC.OV ---
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 Allergies No Known Allergies Allergy (Verified 11/09/24 08:34) Medication List - Last Reconciled 11/09/24 by Poncho Herbert MD diclofenac sodium 1% (Voltaren Arthritis Pain) 2 grams topical QID 30 days diclofenac sodium 1% (Arthritis Pain (diclofenac)) 2 grams topical QID lisinopril-hydrochlorothiazide 10-12.5 mg 1 tab PO DAILY 30 days naproxen 500 mg PO BID PRN 90 days omeprazole 20 mg PO DAILY 30 days oxycodone 5 mg PO Q6H PRN 5 days peg 3350-electrolytes 236-22.74-6.74 -5.86 gram (Golytely) 240 mL PO Q10M simvastatin 40 mg PO BEDTIME tadalafil (Cialis) 5 mg PO DAILY Tobacco use date assessed: 12/09/23 Dental Screening Dental Screen Date: 12/09/23 HPI f/u hypertension HPI Details 64 y/o male presents to f/u hypertension. Blood pressure today 126/60, 85p. He is on lisinopril-HCTZ 10-12.5mg daily. Has been following up with Dr. Wetzel for osteoarthritis, L knee. [facility] Medical History Erectile dysfunction Arthritis Hypertriglyceridemia Hyperlipidemia HTN (hypertension) Surgical History History of esophagogastroduodenoscopy (EGD) History of surgery on right wrist (~1988) H/O colonoscopy History of surgery on arm History of hernia surgery History of knee surgery History of back surgery Family History Father No problems noted. Mother No problems noted. 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 1. Little interest or pleasure in doing things: not at all 2. Feeling down, depressed, or hopeless: not at all 3. Trouble falling or staying asleep, or sleeping too much: not at all 4. Feeling tired or having little energy: not at all 5. Poor appetite or overeating: not at all 6. Feeling bad about yourself - or that you are a failure or have let yourself or your family down: not at all 7. Trouble concentrating on things, such as reading the newspaper or watching television: not at all 8. Moving or speaking so slowly that other people could have noticed. Or the opposite - being so fidgety or restless that you have been moving around a lot more than usual: not at all 9. Thoughts that you would be better off or of hurting yourself in some way: not at all Total score: 0 Depression Screening Interpretation: Negative Depression Screening Done: Yes 93810 - PHQ-9 Billing: Yes Source: Developed by Drs. Mina Conway, Jayde Streeter, Celso Johnson and colleagues, with an educational margarita from [employer]. Thrive Questionnaire Date Thrive assessed: 11/09/24 I am a: Patient What is your living situation today?: I have a steady place to live Within the past 12 months, did the food you bought not last and you didn't have the money to get more?: Never true Within the past 12 months, did you worry whether your food would run out before you got money to buy more?: Never true Do you have trouble paying for medicines?: No Do you have trouble getting transportation to medical appointments?: No Do you have trouble paying your heating and electricity bill?: No Do you have trouble taking care of your child, family member or friend?: No Do you have trouble with day-to-day activities such as bathing, preparing meals, shopping, managing finances, etc.?: No Are you currently unemployed and looking for a job?: No Are you interested in more education?: No Please select the resources that you would like help with: None Currently or been in a relationship where the following occur: No concerns reported THRIVE Score: 0 AUDIT C Alcohol Use Questionnaire (AUDIT-C) 1. How often do you have a drink containing alcohol?: 2-4 times a month 2. How many drinks containing alcohol do you have on a typical day when you are drinking?: 3 or 4 3. How often do you have six or more drinks on one occasion?: Never Total Score: 3 Score Reviewed/Action Taken: Yes JAMARI-7 AMB Questionnaire JAMARI-7 Date JAMARI - 7 assessed: 11/09/24 Feeling nervous, anxious, or on edge: 0 = Not at all Not being able to stop or control worryin = Not at all Worrying too much about different things: 0 = Not at all Trouble relaxin = Not at all Being so restless that it is hard to sit still: 0 = Not at all Becoming easily annoyed or irritable: 0 = Not at all Feeling afraid as if something awful might happen: 0 = Not at all Total JAMARI-7 score (0-4 normal; 5-9 mild; 10-14 moderate; 15-21 severe): 0 Source: Developed by Drs. Mina Conway, Jayde Streeter, Celso Johnson and colleagues, with an educational margarita from [employer]. JAMARI-7 Assessment Billing JAMARI-7 Assessment Tool: JAMARI-7 Assessment 60620 Review of Systems Const Denies chills, Denies fatigue, Denies fever(s), Denies headache(s) and Denies weakness ENT Denies dizziness and Denies headache(s) Card Denies dyspnea Resp Denies cough, Denies dyspnea, Denies wheezing and Denies other (shortness of breath) Musc Denies numbness and Denies tingling Neuro Denies dizziness, Denies headache(s), Denies numbness, Denies tingling and Denies weakness Psych Denies anxiety and Denies depression Endo Denies fatigue Aller/Immun Denies wheezing Physical exam (Primary Care) Vital Signs: Last Vital Signs Temp 98.2 F 11/09/24 08:36 Pulse 85 11/09/24 08:36 Resp 14 11/09/24 08:36 BP 126/60 11/09/24 08:36 Pulse Ox 97 11/09/24 08:36 Oxygen Delivery Method Room Air 11/09/24 08:36 BMI result Body Mass Index 28.4 Tobacco/Smoking Status: Tobacco use Status Tobacco use date assessed 12/09/23 11/09/24 08:39 Patient Tobacco Use Status Former Tobacco user 11/09/24 08:39 Tobacco use type Cigarette 11/09/24 08:39 e-Cigarette/Vaping Use Never Used 11/09/24 08:39 PHQ-9: PHQ-9 Score PHQ-9: Total score 0 11/09/24 08:42 Depression Screening Interpretation: Negative Thrive Assessment: Date of Thrive Assessment Date Thrive assessed 11/09/24 11/09/24 08:39 Currently or been in a relationship where the following occur: No concerns reported Const General: well developed; No acute distress Nutritional Appearance: well nourished Orientation/consciousness: patient oriented x3 HENMT Head: Yes normocephalic and Yes atraumatic Eyes General: appearance normal, both eyes and all related structures Pupils: Equal, round and reactive pupils present EOM: EOMs intact bilaterally Resp Effort & Inspection: normal respiratory effort Auscultation: clear to auscultation bilaterally Cardio Rate: regular rate Rhythm: regular rhythm Heart sounds: S1 normal heart sound present, S2 normal heart sound present, no gallops, no murmurs and no rubs Neuro General: patient oriented x3 and gait normal Cranial nerves: Yes Equal, round and reactive pupils present Psych Affect: normal affect Coding Level of Care Code Est Pt Level 3 (81675) Diagnoses Essential hypertension I10 Osteoarthritis of left knee M17.12 ETD (eustachian tube dysfunction) H69.90 Additional Codes JAMARI-7 Assessment Billing - JAMARI-7 Assessment Tool: JAMARI-7 Assessment 85069 ([id number]) PHQ-9 - 93203 - PHQ-9 Billing: Yes ([id number]) Assessment & Plan Assessment & Plan (1) Essential hypertension: Code(s): I10 - Essential (primary) hypertension Category: Medical Plan: Blood?pressure?is?controlled.??Goal?is?less?than?140/90 Continue?current?medication (2) Osteoarthritis of left knee: Code(s): M17.12 - Unilateral primary osteoarthritis, left knee Category: Medical Plan: Improved?with?injection?therapy. Follow-up?with?ortho?as?recommended (3) ETD (eustachian tube dysfunction): Code(s): H69.90 - Unspecified Eustachian tube disorder, unspecified ear Category: Medical Plan: Ongoing?mild?ear?pressure?and?sensation?of?fluid. Mild?distention?right?TM?without?any?obvious?fluid?or?erythema. He?has?been?referred?to?ENT?but?has?not?been?able?to?hold?of?them Will?ask?the?office?to?check?on?the?status?of?this?referral Keep?nasal?passages?clear. Orders: Orders Lipid Panel Today Z00.00 - Encounter for general adult medical examination without abnormal findings Microalbumin, Random (w Creat) Today I10 - Essential (primary) hypertension Prostate Specific Antigen Scr Today Z12.5 - Encounter for screening for malignant neoplasm of prostate Comprehensive [place]. Panel Fast Today Z00.00 - Encounter for general adult medical examination without abnormal findings Complete Blood Count Auto Diff Today Z00.00 - Encounter for general adult medical examination without abnormal findings TSH reflex Free T4 Today Z00.00 - Encounter for general adult medical examination without abnormal findings UA and rflx microscopic Today Z00.00 - Encounter for general adult medical examination without abnormal findings Medications: Changed From lisinopril-hydrochlorothiazide 10-12.5 mg 1 tab PO DAILY 30 days 30 tabs 2RF To lisinopril-hydrochlorothiazide 10-12.5 mg 1 tab PO DAILY 90 days 90 tabs 3RF
[2024-11-09 08:36] VITALS: BP 126/60; PULSE 85; RESP 14; TEMP 36.8; O2SAT 97; BMI 28.4
== END 2024-11-09 08:54 | disposition home or self-care (01) ==
PROVIDERS: PCP Family Medicine; Visit Provider Family Medicine
DX: I10 Essential (primary) hypertension (principal); M17.12 Unilateral primary osteoarthritis, left knee; H69.90 Unspecified Eustachian tube disorder, unspecified ear

== ENCOUNTER → 2024-11-09 08:22 | Outpatient (BNVA) | payer OTHER, SELFPAY | PROVIDERS: PCP Family Medicine; Visit Provider Family Medicine | DX: I10 Essential (primary) hypertension (principal); M17.12 Unilateral primary osteoarthritis, left knee; H69.91 Unspecified Eustachian tube disorder, right ear | CPT/HCPCS: 96127; 99212 ==

== ENCOUNTER 2024-12-01 06:33 | Day surgery (SDC) | payer OTHER, SELFPAY ==
[2024-11-29 08:05] VITALS: BMI 30.1
--- NOTE | 2024-11-30 09:25 | HO.ANESPROP2 ---
Documented by User: Jamila Roberson NP 11/30/24 09:25 HPI - Anesthesia Eval Consult details Narrative: 64yo M for Colonoscopy PMFSH Active Problems Active Problems: All Active Problems ETD (eustachian tube dysfunction) (Acute) Osteoarthritis of left knee (Acute) Low back pain radiating to right leg (Acute) Tear of medial meniscus of right knee (Acute) Erectile dysfunction (Acute) Hypogonadism in male (Acute) Arthritis of right knee (Acute) Fatigue (Acute) Right knee pain (Acute) Kidney cysts (Acute) Liver cyst (Acute) Stomach discomfort (Acute) Blood in stool (Acute) Low HDL (under 40) (Acute) Dysuria (Acute) Urinary frequency (Acute) Hyperlipidemia (Acute) Hypertriglyceridemia (Acute) Elevated fasting blood sugar (Acute) Tinea cruris (Acute) Screening for colon cancer (Acute) Screening for prostate cancer (Acute) Annual physical exam (Acute) Osteoarthritis of right knee (Acute) Immunization counseling (Acute) History of COVID-19 (Acute) Laboratory examination ordered as part of a routine general medical examination (Acute) Essential hypertension (Acute) Past Medical History Medical History Erectile dysfunction Arthritis Hypertriglyceridemia Hyperlipidemia HTN (hypertension) Family History Family History Father No problems noted. Mother No problems noted. Sister Ovarian cancer Paternal Uncle Rectal cancer Maternal Grandmother Breast cancer Family history of problems with anesthesia: No Surgical History Surgical History History of esophagogastroduodenoscopy (EGD) History of surgery on right wrist (~1988) H/O colonoscopy History of surgery on arm History of hernia surgery History of knee surgery History of back surgery History of Problems with Anesthesia: No Social History Social History Housing: House Alcohol intake: current Alcohol intake frequency: holidays/special occasions only Alcohol type: other Patient Tobacco Use Status: Former Tobacco user Tobacco use type: Cigarette Cigarettes Per Day: 40 Years Smoked: 12 e-Cigarette/Vaping Use: Never Used Second Hand Smoke Exposure: No Use of substances other than those prescribed or required for medical reasons: No Are you DNR?: No Advance Directives: No Advance Directives Information Provided: Yes Nutrition Risks: No Nutritional Risk Poor oral hygiene: No service: No Current occupational status: employed 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 Current occupational exposures/hazards: No Cognitive needs: No Hearing needs: No Vision needs: No Meds Allergies Allergy/AdvReac Type Severity Reaction Status Date / Time No Known Allergies Allergy Verified 11/09/24 08:34 Exam Height,Weight and Vital Signs: Height 5 ft 10 in Weight 95.254 kg Assessment and Plan Assessment Anesthesia Assessment: Chart Reviewed Final Anesthetic Review Family History of Problems with Anesthesia: No History of Problems with Anesthesia: No Documented by User: Bridgett Boyd MD 12/01/24 07:29 PMF Past Medical History Medical History Erectile dysfunction Arthritis Hypertriglyceridemia Hyperlipidemia HTN (hypertension) Family History Family History Father No problems noted. Mother No problems noted. Sister Ovarian cancer Paternal Uncle Rectal cancer Maternal Grandmother Breast cancer Surgical History Surgical History History of esophagogastroduodenoscopy (EGD) History of surgery on right wrist (~1988) H/O colonoscopy History of surgery on arm History of hernia surgery History of knee surgery History of back surgery Social History Social History Housing: House Alcohol intake: current Alcohol intake frequency: holidays/special occasions only Alcohol type: other Patient Tobacco Use Status: Former Tobacco user Tobacco use type: Cigarette Cigarettes Per Day: 40 Years Smoked: 12 e-Cigarette/Vaping Use: Never Used Second Hand Smoke Exposure: No Use of substances other than those prescribed or required for medical reasons: No Are you DNR?: No Advance Directives: No Advance Directives Information Provided: Yes Nutrition Risks: No Nutritional Risk Poor oral hygiene: No service: No Current occupational status: employed 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 Current occupational exposures/hazards: No Cognitive needs: No Hearing needs: No Vision needs: No Meds Allergies Allergy/AdvReac Type Severity Reaction Status Date / Time No Known Allergies Allergy Verified 11/09/24 08:34 Exam Airway Mallampati Class: II TM Dist: >3cm Neck ROM: Full Partial: Upper Loose/Missing/Broken Teeth: Yes and Upper Heart: RRR Lungs: CTA Assessment and Plan Assessment Anesthesia Assessment: Anesthesia Plan Discussed Final Anesthetic Review NPO: Yes ASA Class: II Final Preanesthetic Review: Meds/Allgs Chart Reviewed, Consent Obtained/Reviewed and Anes Risks/Benef Reviewed Patient Risk: Low Procedure Risk: Low Anesthetic Plan Anesthetic Plan: MAC: Disposition: Standard PACU
[2024-12-01 06:39] VITALS: BMI 27.8
[2024-12-01 06:50] VITALS: BP 169/73; PULSE 90; RESP 16; TEMP 36.5; O2SAT 98
[2024-12-01] MEDS: Lactated Ringers 1,000 ML 100 ML IVCONT (06:54)
--- NOTE | 2024-12-01 07:39 | MHC.SHP ---
Pre-Procedural Eval Section A - 24 Hr Update-Section A only Date of Service: 12/01/24 Section B - Complete if H&P > 30 days Chief Complaint: screening Details of Present Illness: History of esophagogastroduodenoscopy (EGD) History of surgery on right wrist (~1988) H/O colonoscopy History of surgery on arm History of hernia surgery History of knee surgery History of back surgery Present Medications: see Short Stay Collaborative assessment Allergies: Allergies Allergy/AdvReac Type Severity Reaction Status Date / Time No Known Allergies Allergy Verified 11/09/24 08:34 Review of Systems Review of Systems Comment: 10 point ROS negative Exam Exam Comment: Gen appear: No acute distress HEENT: no icterus Chest: No overt resp distress Abd: soft, nontender, nondistended Psych: Stable affect, answering questions appropriately Neuro: A/Ox3 noted to move all extremities spontaneously Ext: no peripheral edema Plan Diagnosis/Plan: Unchanged I have reviewed the history and physical and performed a pertinent physical examination on my patient. No changes have occurred unless specified. Time Spent With Patient Time: Total time managing care of this patient today ____ minutes.
--- NOTE | 2024-12-01 07:56 | P.OPN-COLO_ITS ---
Colonoscopy Operative Note Operative Note Date of Service: 12/01/24 Narrative: Procedure: Colonoscopy Indication: Screening Endoscopist: Kayla Sims MD Anesthesia Provider: Dr Bridgett Boyd Anesthesia type: MAC Instrument: Olympus [id number]-H190L Consent: Indication, risks vs benefits, and alternatives were discussed with the patient who gave written informed consent to proceed. EKG, pulse, pulse oximetry and blood pressure were monitored throughout the procedure. Please see anesthesia flowsheet. Procedure: The patient was brought to the procedure room and placed in the left lateral decubitus position. IV medications were administered by the anesthesia provider in attendance. A digital rectal exam was performed which was normal. A distal attachment cap was affixed to the tip of the colonoscope which was then inserted through the anus and advanced through the colon to the cecum at 75 c m,and terminal ileum. Appendiceal orifice and ileocecal valve were identified. Mucosa was carefully examined under high definition white light as the instrument was slowly withdrawn in a retrograde panoramic fashion. Retroflexion was performed in rectum. The procedure was not difficult. There were no immediate obvious complications. The quality of the prep was BBPS: 3+2+3 = adequate Withdrawal time minutes. Limitations: No limitations. Findings: Mucosa: Erythema, whitish exudates noted focally between 25-35 cm. Cold forceps biopsies were taken to r/o segmental colitis associated with diverticulosis (SCAD). Remaining mucosa normal to cecum and terminal ileum. Protruding lesions: * 1 sessile polyp of size 1-2 mm in descending colon. Cold forceps polypectomy was performed. The polyp was completely removed and retrieved. * Large internal hemorrhoids without stigmata of recent bleeding. Excavated lesions: * Moderate diverticulosis of left sided colon. Impression: 1. Abnormal sigmoid mucosa (r/o SCAD) 2. Total of 1 polyp removed 3. Diverticulosis 4. Internal hemorrhoids Recommendations: - Follow path results. - Repeat colonoscopy in 7-10 years if polyp is adenomas or sessile serrated. - Increase fiber intake
[2024-12-01 08:00] VITALS: BP 117/49; PULSE 80; RESP 18; TEMP 36.6; O2SAT 98
[2024-12-01 08:15] VITALS: BP 128/81; PULSE 76; RESP 16; TEMP 36.5; O2SAT 98
== END 2024-12-01 09:16 | disposition home or self-care (01) ==
PROVIDERS: PCP Family Medicine; Visit Provider Internal Medicine
PROC: 0DJD8ZZ Inspection of Lower Intestinal Tract, Via Natural or Artificial Opening Endoscopic (ICD-10-PCS; CPT 45378; principal; 2024-12-01 07:30)
DX: Z12.11 Encounter for screening for malignant neoplasm of colon (principal); K63.5 Polyp of colon; K57.30 Diverticulosis of large intestine without perforation or abscess without bleeding; K64.8 Other hemorrhoids; K63.89 Other specified diseases of intestine; K76.89 Other specified diseases of liver; I10 Essential (primary) hypertension; E78.5 Hyperlipidemia, unspecified; E78.1 Pure hyperglyceridemia; N52.9 Male erectile dysfunction, unspecified; M19.90 Unspecified osteoarthritis, unspecified site; Z79.899 Other long term (current) drug therapy; Z98.890 Other specified postprocedural states; Z87.891 Personal history of nicotine dependence
CPT/HCPCS: 45380; 88305; J2003; J2704

== ENCOUNTER → 2024-12-01 06:33 | Outpatient (BNV) | payer OTHER, SELFPAY | PROVIDERS: PCP Family Medicine; Visit Provider Internal Medicine | DX: Z12.11 Encounter for screening for malignant neoplasm of colon (principal); K63.5 Polyp of colon; K57.30 Diverticulosis of large intestine without perforation or abscess without bleeding; K64.8 Other hemorrhoids | CPT/HCPCS: 45380 ==

== ENCOUNTER 2025-02-27 15:58 | Outpatient (AMB) | payer OTHER, SELFPAY ==
--- NOTE | 2025-02-27 16:12 | A.OFFVIS_ITS ---
Intake Visit Reasons: 9M follow up Intake Note: Patient is Present for 9m Follow Up Urology Medication: Tadalafil Antibiotic Allergies:None Blood Thinners: none PVR:11ml Rn Postpartum Required: No Allergies No Known Allergies Allergy (Verified 02/27/25 16:13) HPI Comments Details: 02/27/25-- History of Present Illness - The patient is a 64-year-old male presenting for a 9-month follow-up and management of erectile dysfunction. - The patient has been on Cialis for erectile dysfunction, taking it daily with good results. - Microscopic hematuria was noted during the visit, which had been observed previously. - The patient has no history of burning during urination or signs of infection. - Preventative care includes a PSA blood test to be conducted before the next visit. Urinary Symptoms Review - Microscopic hematuria observed, no gross hematuria reported. - No burning sensation during urination reported. Results Discussion Notes During the visit, I discussed the presence of microscopic hematuria with the patient, explaining that it could be due to kidney stones or other causes such as bladder or kidney cancer. I recommended an ultrasound to evaluate the kidneys and bladder, and if necessary, a cystoscopy to examine the bladder more closely. We also discussed the importance of a PSA blood test as part of preventative care. The patient was informed about the procedure for cystoscopy, including the use of numbing gel to minimize discomfort. Follow-up appointments were planned to review the ultrasound results and further evaluate the hematuria. Plan - Continue Cialis for erectile dysfunction management. - Order an ultrasound to evaluate the kidneys and bladder due to microscopic hematuria. - Plan for a cystoscopy if ultrasound results are inconclusive or if hematuria persists. - Conduct a PSA blood test as part of preventative care before the next visit. Patient Instructions - Continue taking Cialis daily as prescribed. - Schedule an ultrasound to check your kidneys and bladder. - Get a PSA blood test before your next visit. - Follow up with the doctor to discuss the results of your tests. Patient was informed and verbally consented to the use of an ambient scribe for clinic note documentation during this visit. 04/11/24--Yazan is a 64-year-old male who is here for evaluation due to low testosterone and ED. he was initially evaluated on 02/10/2024 and prescribed Cialis 5 mg daily. Follow-up testosterone levels discussed. The patient states he has noticed improvement in erectile function on daily Cialis. At this time geraldine almanza will hold on further therapy including testosterone replacement therapy. Review of chart: 02/10/2024--Yazan is a 63-year-old male who is here for evaluation due to low testosterone. He states that he has had decreased energy. He has had concerns regarding erectile function as well. He has used Cialis 20 mg half a tab p.r.n. which has been helpful. I have reviewed lab work total testosterone and free testosterone are low. I have discussed repeating the testosterone levels as well as additional hormone levels, FSH, LH, prolactin, estradiol. I have discussed daily Cialis 5 mg to see if this therapy would the a better management for ED. 12/08/2023--total testosterone--166, free testosterone -30.9 04/21/23--PSA--0.25 PFSH Medical History Erectile dysfunction Arthritis Hypertriglyceridemia Hyperlipidemia HTN (hypertension) Surgical History History of esophagogastroduodenoscopy (EGD) History of surgery on right wrist (~1988) H/O colonoscopy History of surgery on arm History of hernia surgery History of knee surgery History of back surgery Family History Father No problems noted. Mother No problems noted. 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 Current occupational exposures/hazards: No Cognitive needs: No Hearing needs: No Vision needs: No Results AMB Urinalysis, Automated UA Leukoctes 0 Atul/uL Last Edit by Kaylee Foster on 02/27/25 16:21 UA Nitrite Negative Last Edit by Kaylee Foster on 02/27/25 16:21 UA Urobilinogen 3.5 mg/dL Last Edit by Kaylee Foster on 02/27/25 16:21 UA Protein 1 mg/dL Last Edit by Kaylee Foster on 02/27/25 16:21 UA pH 5.5 Last Edit by Kaylee Foster on 02/27/25 16:21 UA Blood 25 Harmeet/uL Last Edit by Kaylee Foster on 02/27/25 16:21 UA Specific Valencia 1.020 Last Edit by Kaylee Foster on 02/27/25 16:21 UA Ketone Negative Last Edit by Kaylee Foster on 02/27/25 16:21 UA Bilirubin 0 mg/dL Last Edit by Kaylee Foster on 02/27/25 16:21 UA Glucose 0 mg/dL Last Edit by Kaylee Foster on 02/27/25 16:21 Results Reviewed Results Reviewed: Laboratory Last Values Urine pH (Auto) 5.5 02/27/25 16:18 Specific [place] (Auto) 1.020 02/27/25 16:18 Urine Protein (Auto) 1 mg/dL 02/27/25 16:18 Glucose (UA)(Auto) 0 mg/dL 02/27/25 16:18 Urine Ketones (Auto) Negative 02/27/25 16:18 Urine Blood (Auto) 25 [place]meet/uL 02/27/25 16:18 Urine Nitrite (Auto) Negative 02/27/25 16:18 Urine Bilirubin (Auto) 0 mg/dL 02/27/25 16:18 Urine Urobilinogen (Auto) 3.5 mg/dL 02/27/25 16:18 Leukocyte Esterase (Auto) 0 Atul/uL 02/27/25 16:18 Assessment & Plan Assessment & Plan Orders: Orders AMB Urinalysis Automated Today Z13.9 - Encounter for screening, unspecified Medications: Refilled tadalafil (Cialis) [id number] [facility] [id number] Member [id number] 5 mg PO DAILY 30 tabs 7RF Coding
== END 2025-02-27 16:39 | disposition home or self-care (01) ==
LOC: HO.HUSH 15:58
PROVIDERS: PCP Family Medicine; Visit Provider Urology
DX: Z13.9 Encounter for screening, unspecified (principal)

== ENCOUNTER → 2025-02-27 15:58 | Outpatient (BNVA) | payer OTHER, SELFPAY | PROVIDERS: PCP Family Medicine; Visit Provider Urology | DX: N52.9 Male erectile dysfunction, unspecified (principal) | CPT/HCPCS: 81003 ==

== ENCOUNTER 2025-03-08 13:19 | Outpatient (REF) | payer OTHER, SELFPAY ==
[2025-03-08 13:35] LABS: Urine Cytology See Pathology rpt
== END 2025-03-08 13:20 | disposition home or self-care (01) ==
LOC: HO.LAB 13:19
PROVIDERS: PCP Family Medicine; Visit Provider Urology
DX: R30.0 Dysuria (principal)
CPT/HCPCS: 88112

== ENCOUNTER 2025-04-11 16:08 | Outpatient (REF) | payer OTHER, SELFPAY ==
--- NOTE | ~2025-04-11 | US_ITS ---
EXAMINATION: US RETROPERITONEUM HISTORY: Z12.5 - Encounter for screening for malignant neoplasm of prostate TECHNIQUE: Real-time grayscale ultrasound imaging of the kidneys was performed and images were reviewed. COMPARISON: Correlation is made with an MRI of the abdomen dated 06/08/2023. FINDINGS: Right kidney: The right kidney measures 11.7 x 4.6 x 5.3 cm. Renal parenchymal echotexture and thickness are normal. There is a lower pole cyst measuring 1.3 x 0.8 x 1.6 cm. There is no hydronephrosis or renal calculi. Left Kidney: The left kidney measures 11.7 x 6.0 x 4.3 cm. Renal parenchymal echotexture and thickness are normal. There are no masses. There is no hydronephrosis or renal calculi. The urinary bladder is unremarkable. Bilateral ureteral jets are identified. Before voiding, the urinary bladder measured 10.5 x 7.4 x 8.8 cm, for an estimated volume of 358 mL. After voiding, the urinary bladder measured 3.7 x 2.2 x 4.0 cm, for an estimated volume of 18 mL. The prostate measures 4.3 x 2.8 x 4.7 cm, for an estimated volume of 29 mL. Incidental note is made of a 1.9 x 1.7 x 1.6 cm cyst in the right hepatic lobe. US/US retroperitoneal comp IMPRESSION: 1. 1.3 x 0.8 x 1.6 cm right renal cyst. Otherwise unremarkable retroperitoneal ultrasound. 2. Post void bladder residual of 18 mL. 3. Prostate volume of 29 mL. Electronically signed by: Mina Moeller MD 04/12/2025 07:01 AM EDT
== END 2025-04-11 16:09 | disposition home or self-care (01) ==
LOC: HO.US 16:08
PROVIDERS: PCP Family Medicine; Visit Provider Urology
DX: N28.1 Cyst of kidney, acquired (principal)
CPT/HCPCS: 76770

== ENCOUNTER → 2025-04-11 16:10 | Outpatient (BNV) | payer OTHER, SELFPAY | PROVIDERS: PCP Family Medicine; Visit Provider Radiology Diagnostic Radiology | DX: N20.0 Calculus of kidney (principal); N28.1 Cyst of kidney, acquired | CPT/HCPCS: 76770 ==

== ENCOUNTER 2025-05-08 07:50 | Outpatient (AMB) | payer OTHER, SELFPAY ==
--- NOTE | 2025-05-08 07:54 | A.OFFPC_ITS ---
Vital Signs 05/08/25 08:20 Height 5 ft 10 in Weight 194 lb 8 oz BMI 27.9 BP 124/70 Blood Pressure Location Lt brachial Position Sitting Respiration 12 Pulse 78 Pulse Source Pulse Oximeter Temp 96.9 F Temp Source Oral Pulse Oximetry (%) 98 Oxygen Delivery Method Room Air Intake Visit Reasons: CPE with f/u labs and health maint Intake Note: Cpe Special Education Director Required: No Allergies No Known Allergies Allergy (Verified 05/08/25 08:14) Medication List - Last Reconciled 05/08/25 by STELLA Catalan- diclofenac sodium 1% (Voltaren Arthritis Pain) 2 grams topical QID 30 days diclofenac sodium 1% (Arthritis Pain (diclofenac)) 2 grams topical QID lisinopril-hydrochlorothiazide 10-12.5 mg 1 tab PO DAILY 90 days omeprazole 20 mg PO DAILY 30 days simvastatin 40 mg PO BEDTIME tadalafil (Cialis) 5 mg PO DAILY Tobacco use date assessed: 05/08/25 Dental Screening Dental Screen Date: 05/08/25 Did you have a dental visit in the last 12 months?: Yes Did you have a dental problem in the last 6 months where you did not have access to dental care?: No Was dental information given to patient?: Patient has dentist HPI HPI Comments History of Present Illness Details 65 y/o M with ED, HTN, HLD, GERD, OA History of Present Illness - The patient is a 65-year-old male pres enting for a complete physical exam. - History of essential hypertension on l isinopril/hydrochlorothiazide. - Hyperlipidemia managed with simvastati n. - Erectile dysfunction treated with Cial is. - Osteoarthritis managed with topical di clofenac. - GERD managed with as-needed omeprazole . - Recent renal and bladder ultrasound; f ollow up pending. - Normal colonoscopy reported. Past Surgical History No change Family History No change Health Maintenance Optho a few years ago; wears reading glasses Colon UTD Tdap UTD Skin no changes or concerns Due for labs - done this AM Review of Systems - Cardiovascular: Denies leg swelling. - Musculoskeletal: Denies hip or low kathy k pain. - Psychiatric: Denies anxiety or depress ion. - Dermatological: Denies skin changes or concerns. Physical Exam General: Well developed, well nourished, in no acute distress. Appears stated age. Head: Normocephalic, atraumatic. Eyes: Pupils are equal, round and reactive to light and accommodation. Conjunctivae are clear. Vision grossly normal. Ears: TMs clear AU, EACS WNL Nose: Patent, without discharge. Neck: Supple, no adenopathy or thyromegaly. Breast: Edu on SBE Lungs: Clear to auscultation bilaterally. No rales, rhonchi or wheeze noted. Good air flow in all calvo. Heart: Regular rate and rhythm. No murmurs, click, rubs or gallops are noted. Abdomen: Bowel sounds present in all quadrants. The abdomen is soft, nontender, with no masses or organomegaly noted. No hernias are noted. : Deferred. Reviewed JENNY & recommendations Pulses: Peripheral pulses are equal and palpable bilaterally. Extremities: No clubbing, cyanosis nor edema is noted. No swelling in legs. Neurologic: Gait and station normal. Cranial Nerves 2-12 intact. Motor strength grossly symmetrical and intact. No sensory loss. Balance normal. Skin: No rashes, ulcers, or lesions noted. Turgor is good. Skin color is good. Hair and nails are without abnormalities. Psych: Normal eye contact, affect and mood appropriate, and normal interactions. Patient is alert and appropriate to context. Mood looks good. No anxiety, no depression. Results Pending Discussion Notes I discussed with the patient the status of his current medical conditions and ensured understanding of his medication regimen. I mentioned that his renal and bladder ultrasound seemed unremarkable but recommended following up with urology for confirmation. We confirmed his next urology appointment on May 18. We also talked about his compliance with current medications, including managing hypertension and hyperlipidemia. Further, I confirmed that his vaccinations and screenings are up-to-date, specifically noting his normal colonoscopy and tetanus vaccine. He was advised to return for scheduled follow-up visits and laboratory work before his next urology appointment, typically six months apart. Instructions for refills of medications and their necessity were confirmed and discussed. Patient was given time to ask questions. All questions were answered to their satisfaction. Assessment and Plan 1. Essential Hypertension - Continue lisinopril and hydrochlorothi azide. Home monitoring advised. 2. Hyperlipidemia - Continue simvastatin. Lipid level rech dwayne in six months. 3. Erectile Dysfunction - Continue current Cialis dosing. & fu w ith Uro 4. Osteoarthritis - Continue topical diclofenac. 5. Gastroesophageal Reflux Disease - Use omeprazole PRN. Prescription order ed. Telehealth in 1 week to review labs, then 6 mo with PCP HTN/Lipids - labs ordered. Patient Instructions - Continue taking blood pressure and cho lesterol medications as directed. - Follow up with your urologist as phillip edouard on May 18. - Refill medications for GERD and arthri tis have been ordered. - Monitor blood pressure at home regular ly. - Schedule a follow-up appointment in si x months for lab work. Consent Patient was informed and verbally consented to the use of an ambient scribe for clinic note documentation during this visit. [facility] Medical History (Updated 05/08/25 @ 08:37 by STELLA Catalan-CECILE) Arthritis Erectile dysfunction HTN (hypertension) Hyperlipidemia Hypertriglyceridemia Surgical History (Updated 05/08/25 @ 08:37 by STELLA Catalan-CECILE) H/O colonoscopy (~2023) History of back surgery History of esophagogastroduodenoscopy (EGD) History of hernia surgery History of knee surgery History of surgery on arm History of surgery on right wrist (~1988) Family History Father No problems noted. Mother No problems noted. 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 1. Little interest or pleasure in doing things: not at all 2. Feeling down, depressed, or hopeless: not at all 3. Trouble falling or staying asleep, or sleeping too much: not at all 4. Feeling tired or having little energy: not at all 5. Poor appetite or overeating: not at all 6. Feeling bad about yourself - or that you are a failure or have let yourself or your family down: not at all 7. Trouble concentrating on things, such as reading the newspaper or watching television: not at all 8. Moving or speaking so slowly that other people could have noticed. Or the opposite - being so fidgety or restless that you have been moving around a lot more than usual: not at all 9. Thoughts that you would be better off or of hurting yourself in some way: not at all Total score: 0 Depression Screening Interpretation: Negative Depression Screening Done: Yes 09492 - PHQ-9 Billing: Yes Source: Developed by Drs. Mina Conway, Jayde Streeetr, eClso Johnson and colleagues, with an educational margarita from [employer]. Thrive Questionnaire Date Thrive assessed: 05/08/25 I am a: Patient What is your living situation today?: I have a steady place to live Within the past 12 months, did the food you bought not last and you didn't have the money to get more?: Never true Within the past 12 months, did you worry whether your food would run out before you got money to buy more?: Never true Do you have trouble paying for medicines?: No Do you have trouble getting transportation to medical appointments?: No Do you have trouble paying your heating and electricity bill?: No Do you have trouble taking care of your child, family member or friend?: No Do you have trouble with day-to-day activities such as bathing, preparing meals, shopping, managing finances, etc.?: No Are you currently unemployed and looking for a job?: No Are you interested in more education?: No Please select the resources that you would like help with: None Currently or been in a relationship where the following occur: No concerns reported THRIVE Score: 0 AUDIT C Alcohol Use Questionnaire (AUDIT-C) 1. How often do you have a drink containing alcohol?: Never 2. How many drinks containing alcohol do you have on a typical day when you are drinking?: 1 or 2 3. How often do you have six or more drinks on one occasion?: Never Total Score: 0 Score Reviewed/Action Taken: Yes JAMARI-7 AMB Questionnaire JAMARI-7 Date JAMARI - 7 assessed: 05/08/25 Feeling nervous, anxious, or on edge: 0 = Not at all Not being able to stop or control worryin = Not at all Worrying too much about different things: 0 = Not at all Trouble relaxin = Not at all Being so restless that it is hard to sit still: 0 = Not at all Becoming easily annoyed or irritable: 0 = Not at all Feeling afraid as if something awful might happen: 0 = Not at all Total JAMARI-7 score (0-4 normal; 5-9 mild; 10-14 moderate; 15-21 severe): 0 Source: Developed by Drs. Mina Conway, Jayde Streeter, Celso Johnson and colleagues, with an educational margarita from [employer]. JAMARI-7 Assessment Billing JAMARI-7 Assessment Tool: JAMARI-7 Assessment 36745 Physical exam (Primary Care) Vital Signs: Last Vital Signs Temp 96.9 F 05/08/25 08:20 Pulse 78 05/08/25 08:20 Resp 12 05/08/25 08:20 BP 124/70 05/08/25 08:20 Pulse Ox 98 05/08/25 08:20 Oxygen Delivery Method Room Air 05/08/25 08:20 BMI result Body Mass Index 27.9 Tobacco/Smoking Status: Tobacco use Status Tobacco use date assessed 05/08/25 05/08/25 08:07 Patient Tobacco Use Status Former Tobacco user 05/08/25 07:55 Tobacco use type Cigarette 05/08/25 07:55 e-Cigarette/Vaping Use Never Used 05/08/25 07:55 PHQ-9: PHQ-9 Score PHQ-9: Total score 0 05/08/25 08:05 Depression Screening Interpretation: Negative Thrive Assessment: Date of Thrive Assessment Date Thrive assessed 05/08/25 05/08/25 08:05 Currently or been in a relationship where the following occur: No concerns reported Coding Level of Care Code Est Pt Prev Care 40-64y(62285) Diagnoses Annual physical exam Z00.00 Laboratory examination ordered as part of a routine general medical examination Z00.00 Essential hypertension I10 Mixed hyperlipidemia E78.2 Hyperlipidemia type: mixed hyperlipidemia Elevated fasting blood sugar R73.01 Hypogonadism in male E29.1 Liver cyst K76.89 Kidney cysts N28.1 Primary osteoarthritis of left knee M17.12 Osteoarthritis type: primary GERD without esophagitis K21.9 Additional Codes JAMARI-7 Assessment Billing - JAMARI-7 Assessment Tool: JAMARI-7 Assessment 48590 ([id number]) PHQ-9 - 91157 - PHQ-9 Billing: Yes ([id number]) Assessment & Plan Assessment & Plan (1) Annual physical exam: Onset Date: ~05/08/25 Code(s): Z00.00 - Encounter for general adult medical examination without abnormal findings Category: Medical (2) Laboratory examination ordered as part of a routine general medical examination: Code(s): Z00.00 - Encounter for general adult medical examination without abnormal findings Category: Medical (3) Essential hypertension: Code(s): I10 - Essential (primary) hypertension Category: Medical (4) Hyperlipidemia: Code(s): E78.5 - Hyperlipidemia, unspecified Category: Medical Qualifiers: Hyperlipidemia type: mixed hyperlipidemia Qualified Code(s): E78.2 - Mixed hyperlipidemia (5) Elevated fasting blood sugar: Code(s): R73.01 - Impaired fasting glucose Category: Medical (6) Hypogonadism in male: Code(s): E29.1 - Testicular hypofunction Category: Medical (7) Liver cyst: Code(s): K76.89 - Other specified diseases of liver Category: Medical (8) Kidney cysts: Code(s): N28.1 - Cyst of kidney, acquired Category: Medical (9) Osteoarthritis of left knee: Code(s): M17.12 - Unilateral primary osteoarthritis, left knee Category: Medical Qualifiers: Osteoarthritis type: primary Qualified Code(s): M17.12 - Unilateral primary osteoarthritis, left knee (10) GERD without esophagitis: Code(s): K21.9 - Gastro-esophageal reflux disease without esophagitis Category: Medical Plan . Orders: Orders Comprehensive Met. Panel 6 Months E78.5 - Hyperlipidemia, unspecified, I10 - Essential (primary) hypertension Lipid Panel 6 Months E78.5 - Hyperlipidemia, unspecified, I10 - Essential (primary) hypertension Medications: Refilled omeprazole 20 mg PO DAILY 30 caps 1RF 30 days diclofenac sodium 1% (Arthritis Pain (diclofenac)) apply to effected areas as directed 2 grams topical QID 100 grams 3RF Discontinued diclofenac sodium 1% (Voltaren Arthritis Pain) apply to single elbow, wrist or hand; for hand includes palm/fingers/back of hand Discontinued Reason: Patient Completed Course 2 grams topical QID 30 days 200 grams 3RF Patient Instructions: Health screenings for men You should visit your health care provider regularly, even if you feel healthy. The purpose of these visits is to: Screen for medical issues Assess your risk for future medical problems Encourage a healthy lifestyle Update vaccinations and other preventive care services Help you get to know your provider in case of an illness Information Even if you feel fine, you should still see your provider for regular checkups. These visits can help you avoid problems in the future. For example, the only way to find out if you have high blood pressure is to have it checked regularly. High blood sugar and high cholesterol level also may not have any symptoms in the early stages. Simple blood tests can check for these conditions. There are specific times when you should see your provider or receive specific health screenings. The [place] Preventive Services Task Force publishes a list of recommended screenings. Below are screening guidelines for men ages 40 to 64. BLOOD PRESSURE SCREENING Have your blood pressure checked at least once every year. Watch for blood pressure screenings in your area. Ask your provider if you can stop in to have your blood pressure checked. Ask your provider if you need your blood pressure checked more often if: You have diabetes, heart disease, kidney problems, or are overweight or have certain other health conditions You have a first-degree relative with high blood pressure You are Black Your blood pressure top number is from 120 to 129 mm Hg, or the bottom number is from 70 to 79 mm Hg If the top number is 130 mm Hg or greater or the bottom number is 80 mm Hg or greater, this is considered stage 1 hypertension. Schedule an appointment with your provider to learn how you can lower your blood pressure. Effects of age on blood pressure CHOLESTEROL SCREENING Cholesterol screening should begin at age 35 for men with no known risk factors for coronary heart disease. Repeat cholesterol screening should take place: Every 5 years for men with normal cholesterol levels More often if changes occur in lifestyle (including weight gain and diet) More often if you have diabetes, heart disease, kidney problems, or certain other conditions COLORECTAL CANCER SCREENING If you are under age 45, talk to your provider about getting screened. You may need to be screened if you have a strong family history of colon cancer or polyps. Screening may also be considered if you have risk factors such as a history of inflammatory bowel disease or polyps. If you are age 45 to 75, you should be screened for colorectal cancer. There are several screening tests available: A stool-based fecal occult blood (gFOBT) or fecal immunochemical test (FIT) every year A stool sDNA test every 1 to 3 years Flexible sigmoidoscopy every 5 years or every 10 years with stool testing FIT done every year CT colonography (virtual colonoscopy) every 5 years Colonoscopy every 10 years You may need a colonoscopy more often if you have risk factors for colorectal cancer, such as: Ulcerative colitis A personal or family history of colorectal cancer A history of growths in your colon called adenomatous polyps DENTAL EXAM Go to the dentist once or twice every year for an exam and cleaning. Your dentist will evaluate if you have a need for more frequent visits. DIABETES SCREENING All adults who do not have risk factors for diabetes should be screened starting at age 35 and repeated every 3 years. If you have other risk factors for diabetes, such as a first degree relative with diabetes, overweight or obesity, high blood pressure, prediabetes, or a history of heart disease, you may be tested more often. If you are overweight and have other risk factors, such as high blood pressure and are planning to become , screening is recommended. EYE EXAM Have an eye exam every 2 to 4 years ages 40 to 54 and every 1 to 3 years ages 55 to 64. Your provider may recommend more frequent eye exams if you have vision problems or glaucoma risk. Have an eye exam that includes an examination of your retina (back of your eye) at least every year if you have diabetes. IMMUNIZATIONS Commonly needed vaccines include: Flu shot: get one every year COVID-19 vaccine: ask your provider what is best for you Tetanus-diphtheria and acellular pertussis (Tdap) vaccine: have as one of your tetanus-diphtheria vaccines if you did not receive it as an adolescent Tetanus-diphtheria: have a booster (or Tdap) every 10 years Varicella vaccine: receive 2 doses if you never had chickenpox or the varicella vaccine and were born in 1980 or after Hepatitis B vaccine: receive 2, 3, or 4 doses, depending on your exact circumstances, if you did not receive these as a child or adolescent, until age 59 Shingles (herpes zoster) vaccine: at or after age 50 Ask your provider if you should receive other immunizations, especially if you have certain medical conditions, such as diabetes or are at increased risk for some diseases such as pneumonia. INFECTIOUS DISEASE SCREENING Screening for hepatitis C: all adults ages 18 to 79 should get a one-time test for hepatitis C. Screening for human immunodeficiency virus (HIV): all people ages 15 to 65 should get a one-time test for HIV. Depending on your lifestyle and medical history, you may need to be screened for infections such as syphilis, chlamydia, and other infections. LUNG CANCER SCREENING You should have an annual screening for lung cancer with low-dose computed tomography (LDCT) if: You are age 50 to 80 years AND You have a 20 pack-year smoking history AND You currently smoke or have quit within the past 15 years OSTEOPOROSIS SCREENING If you are age 50 to 64 and have risk factors for osteoporosis, you should discuss screening with your provider. Risk factors can include long-term steroid use, low body weight, smoking, heavy alcohol use, having a fracture after age 50, or a family history of hip fracture or osteoporosis. Osteoporosis PHYSICAL EXAM All adults should visit their provider from time to time, even if they are healthy. The purpose of these visits is to: Screen for diseases Assess risk of future medical problems Encourage a healthy lifestyle Update vaccinations and other preventive care services Maintain a relationship with a provider in case of an illness Your height, weight, and body mass index (BMI) should be checked at every exam. During your exam, your provider may ask you about: Depression and anxiety Diet and exercise Alcohol and tobacco use Safety, such as use of seat belts and smoke detectors Your medicines and risk for interactions PROSTATE CANCER SCREENING If you're 55 through 69 years old, before having the test, talk to your provider about the pros and cons of having a PSA test. Ask about: Whether screening decreases your chance of dying from prostate cancer. Whether there is any harm from prostate cancer screening, such as side effects from testing or overtreatment of cancer when discovered. Whether you have a higher risk of prostate cancer than others. If you are age 55 or younger, screening is not generally recommended. You should talk with your provider about if you have a higher risk for prostate cancer. Risk factors include: Having a family history of prostate cancer (especially a brother or father) Being If you choose to be tested, the PSA blood test is repeated over time (yearly or less often), though the best frequency is not known. Prostate examinations are no longer routinely done on men with no symptoms. Prostate cancer SKIN EXAM Your provider may check your skin for signs of skin cancer, especially if you're at high risk. People at high risk include those who have had skin cancer before, have close relatives with skin cancer, or have a weakened immune system. TESTICULAR EXAM The [place] Preventive Services Task Force (USPSTF) now recommends against performing testicular self-exams. Doing testicular self-exams has been shown to have little to no benefit.
[2025-05-08 08:20] VITALS: BP 124/70; PULSE 78; RESP 12; TEMP 36.1; O2SAT 98; BMI 27.9
== END 2025-05-08 08:36 | disposition home or self-care (01) ==
LOC: HO.HMCFM 07:51
PROVIDERS: PCP Family Medicine; Visit Provider Nurse Practitioner Family
DX: Z00.00 Encounter for general adult medical examination without abnormal findings (principal); I10 Essential (primary) hypertension; R73.01 Impaired fasting glucose; E29.1 Testicular hypofunction; K76.89 Other specified diseases of liver; N28.1 Cyst of kidney, acquired; M17.12 Unilateral primary osteoarthritis, left knee; K21.9 Gastro-esophageal reflux disease without esophagitis

== ENCOUNTER 2025-05-08 08:04 | Outpatient (REF) | payer OTHER, SELFPAY ==
[2025-05-08 11:07] LABS: MANUAL DIFF FLAG NO
[2025-05-08 11:29] LABS: Hematocrit 39.7 % (42.0-52.0); Hemoglobin 13.6 g/dl (14.0-18.0); Imm Gran Abs Auto 0.02 X10*3/uL (0.00-0.03); Imm Gran Pct Auto 0.4 % (0.0-0.4); Lymphocytes Absolute Auto 1.0 X10*3/uL (1.2-4.9); Mean Corpuscular HGB Conc 34.3 g/dl (31.0-36.0); Mean Corpuscular Hemoglobin 31.7 pg (27.0-33.0); Mean Corpuscular Volume 92.5 fL (80.0-98.0); NRBC Abs Auto 0.000 X10*3/uL (0.0-0.012); NRBC Pct Auto 0.0 /100WBC (0.0-0.2); Platelet Count 217 X10*3/uL (160-400); Red Blood Count 4.29 X10*6/uL (4.60-5.80); White Blood Count 5.1 X10*3/uL (4.8-10.8)
[2025-05-08 12:09] LABS: Alanine Aminotransferase 28 U/L (0-40); Albumin Level 4.4 g/dL (3.5-5.0); Alkaline Phosphatase 36 U/L (39-117); Anion Gap 13 (12-20); Aspartate Amino Transferase 26 U/L (5-37); Blood Urea Nitrogen 15 mg/dL (9-16); Calcium 9.7 mg/dL (8.4-10.2); Carbon Dioxide 28 mmol/L (22-29); Chloride 101 mmol/L (96-108); Cholesterol 146 mg/dL (<200); Estimated Glomerular Filt Rate > 60; HDL Cholesterol 40 mg/dL (>40); Potassium 3.8 mmol/L (3.3-5.1); Sodium 138 mmol/L (135-145); Total Protein 6.8 g/dL (6.5-8.0); Triglycerides 156 mg/dL (<150)
[2025-05-08 14:27] LABS: Appearance Urine Clear; Glucose Urine UA Negative (Negative); PH 7.5 (5.0-9.0); Specific Gravity - Urine 1.015 (1.005-1.025)
== END 2025-05-08 08:05 | disposition home or self-care (01) ==
LOC: HO.WFDLDS 08:04
PROVIDERS: Visit Provider Family Medicine
DX: Z00.00 Encounter for general adult medical examination without abnormal findings (principal); Z12.5 Encounter for screening for malignant neoplasm of prostate; I10 Essential (primary) hypertension; E78.2 Mixed hyperlipidemia; R73.01 Impaired fasting glucose; E29.1 Testicular hypofunction; K76.89 Other specified diseases of liver; K21.9 Gastro-esophageal reflux disease without esophagitis; N28.1 Cyst of kidney, acquired; M17.12 Unilateral primary osteoarthritis, left knee
CPT/HCPCS: 36415; 80053; 80061; 81003; 82570; 84153; 84443; 85025; 96127; 99396

== ENCOUNTER 2025-05-18 15:07 | Outpatient (AMB) | payer OTHER, SELFPAY ==
--- NOTE | 2025-05-18 14:53 | A.OFFPC_ITS ---
Intake Visit Reasons: Review Labs Intake Note: Telehealth to review labs. Chandelier Maker Required: No Allergies No Known Allergies Allergy (Verified 05/18/25 15:19) Medication List - Last Reviewed 05/18/25 by Ghada Schaeffer MA diclofenac sodium 1% (Arthritis Pain (diclofenac)) 2 grams topical QID lisinopril-hydrochlorothiazide 10-12.5 mg 1 tab PO DAILY 90 days omeprazole 20 mg PO DAILY 30 days simvastatin 40 mg PO BEDTIME tadalafil (Cialis) 5 mg PO DAILY Tobacco use date assessed: 05/18/25 Dental Screening Dental Screen Date: 05/18/25 Did you have a dental visit in the last 12 months?: Yes Did you have a dental problem in the last 6 months where you did not have access to dental care?: No Was dental information given to patient?: Patient has dentist HPI HPI Comments History of Present Illness Details 65 y/o M with ED, HTN, HLD, GERD, OA, IF G, mild anemia History of Present Illness - The patient is a 65-year-old male pres enting for a wellness visit and review of laboratory results. - Mild anemia has been stable, confirmed by a previous colonoscopy - Borderline hyperglycemia has remained consistent over recent assessments. - Hyperlipidemia management is effective , shown by an increase in HDL and optimal LDL levels. - A weight loss of 41 pounds has positiv chris impacted cholesterol levels. - Essential hypertension shows no change s needed as kidney function is stable. Review of Systems - Hematologic: Reports mild anemia. NO o vert bleeding - Endocrine: Denies symptoms related to thyroid abnormalities. - Musculoskeletal: Reports significant w eight loss intentional - Metabolic: Reports historical borderli ne hyperglycemia. - Cardiovascular: Denies chest pain; rep orts history of hypertension. - Gastrointestinal: Denies new gastroint estinal symptoms; reports stable lab results. - Renal: Denies any significant kidney i ssues; lab results show stable kidney function. - Reproductive: Denies symptoms of prost ate abnormality; lab results indicate normal prostate levels. Physical Exam Speaking in full sentences Engaging, appropriate Mood and affect appropriate Results See below - Labs: - Mild anemia - Normal electrolytes - Normal kidney function - Fasting blood sugar: 106 mg/dL (border line high) - Improved HDL: 40 mg/dL, LDL and total cholesterol within optimal ranges. - Normal calcium levels - Normal liver function - Normal thyroid function - Normal prostate levels Assessment and Plan 1. Mild Anemia - Stable with prior investigations confi rming no alarming causes. 2. Borderline Hyperglycemia - Continues without significant concerns . 3. Hyperlipidemia - Improvement noted; continue with curre nt management. 4. Weight Loss - Recognized and impacts lipid levels po sitively. 5. Essential Hypertension - No changes indicated with stable monit oring. RTO 6 mo w/ labs with PCP lipids/HTN FU Patient was given time to ask questions. All questions were answered to their satisfaction. Telehealth Attestation The documentation for this phone visit is accurate and complete to the best of my knowledge. The patient has been explained that this is an interactive (audio/video) telehealth encounter and what that consists of. The patient understands and wishes to proceed. [employer] platform was used. Total time spent caring for the patient today was 11 minutes. This includes time spent before the visit reviewing the chart, time spent during the visit, and time spent after the visit on documentation, reviewing laboratory results, diagnostic imaging, medications, performing a medically necessary evaluation, counseling on diagnoses, care coordination, ordering appropriate tests, ordering appropriate medications, review of tests performed by other providers, reporting test results with the patient, communication with other healthcare providers. [facility] Medical History (Updated 05/18/25 @ 15:35 by Tierra Justin, [facility]-) Arthritis Erectile dysfunction HTN (hypertension) Hyperlipidemia Hypertriglyceridemia Surgical History (Updated 05/08/25 @ 08:37 by Tierra Justin, [employer]-) H/O colonoscopy (~2023) History of back surgery History of esophagogastroduodenoscopy (EGD) History of hernia surgery History of knee surgery History of surgery on arm History of surgery on right wrist (~1988) Family History Father No problems noted. Mother No problems noted. 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 Mina Conway, Jayde tSreeter, Celso Johnson and colleagues, with an educational margarita from [employer]. Physical exam (Primary Care) Tobacco/Smoking Status: Tobacco use Status Tobacco use date assessed 05/08/25 05/18/25 14:53 Patient Tobacco Use Status Former Tobacco user 05/18/25 14:53 Tobacco use type Cigarette 05/18/25 14:53 e-Cigarette/Vaping Use Never Used 05/18/25 14:53 Thrive Assessment: Date of Thrive Assessment Date Thrive assessed 05/08/25 05/18/25 14:53 Telehealth Telehealth Telehealth Platform: [employer] Location of provider rendering services: practice address Location of patient: address on file Patient Identification confirmed using: Name, : Yes Telehealth method: voice only Patient verbally consented to treatment: Yes Patient verbally consented to billing insurance company: Yes Patient informed of any privacy concerns related to visit: Yes Minutes spent on Phone/Video with Pt.: 5 Results Reviewed Results Reviewed: RUN: 05/18/25 1453 PAGE 1 [facility] [address] [place] [phone] Lineman Apprentice: Poncho Valenzuela M.D. Specimen Inquiry Name: Yazan Mars Age/Sex: 65/M : 1960 Unit#: [id number] Attend Dr: Poncho Herbert MD Re05/08/25 Status: DEP REF Location: [facility] Di kaia: SPEC : [id number] ABIGAIL: 05/08/25 STATUS: COMP REQ : [id number] RECD: 05/08/[address] [facility] [address]: Poncho Herbert MD COMP: 05/08/25 ENTERED: 05/08/[address] [facility] [address]: ORDERED: CBC Auto Diff Test Result Flag Reference WBC 5.1 4.8-10.8 X10*3/uL RBC 4.29 L 4.60-5.80 X10*6/uL HGB 13.6 L 14.0-18.0 g/dl HCT 39.7 L 42.0-52.0 % MCV 92.5 80.0-98.0 fL MCH 31.7 27.0-33.0 pg MCHC 34.3 31.0-36.0 g/dl RDW 12.6 11.0-16.0 % PLT 217 160-400 X10*3/uL MPV 10.7 9.4-12.4 fL Neut Pct Auto 67.6 45-73 % ImGran Pct Auto 0.4 0.0-0.4 % Lymp Pct Auto 19.3 L 20-40 % Moca Pct Auto 7.2 2-11 % Eos Pct Auto 4.7 H 0-4 % Baso Pct Auto 0.8 0-2 % NRBC Pct Auto 0.0 0.0-0.2 /100WBC ANC Neut Abs # 3.5 2.0-8.3 x10*3/uL ImGran Abs Auto 0.02 0.00-0.03 X10*3/uL Lymph Abs Auto 1.0 L 1.2-4.9 X10*3/uL Moca Abs Auto 0.4 0.1-1.2 X10*3/uL Eos Abs Auto 0.2 0.0-0.4 X10*3/uL Baso Abs Auto 0.0 0.0-0.2 X10*3/uL NRBC Abs Auto 0.000 0.0-0.012 X10*3/uL RUN: 05/18/25 1453 PAGE 1 [facility] [address] [place] [phone] Lineman Apprentice: Poncho Valenzuela M.D. Specimen Inquiry Name: Yazan Mars Age/Sex: 65/M : 1960 Unit#: [id number] Attend Dr: Poncho Herbert MD Re05/08/25 Status: DEP [facility] Disch: SPEC : [id number] ABIGAIL: 05/08/25 STATUS: COMP REQ : [id number] RECD: 05/08/25-[address]: Poncho Herbert MD COMP: 05/08/25 ENTERED: 05/08/[address]: ORDERED: CMP Fast, Lipid Panel, TSH Rflx Test Result Flag Reference Sodium 138 135-145 mmol/L Potassium 3.8 3.3-5.1 mmol/L CL 101 96-108 mmol/L CO2 28 22-29 mmol/L Gap 13 12-20 BUN 15 9-16 mg/dL Creat 0.72 0.5-1.4 mg/dL eGFR > 60 Chronic Kidney Disease: Estimated GFR < 60 mL/min/1.73m2 Severe Kidney Disease: Estimated GFR < 15 mL/min/1.73m2 FBS 106 H 60-99 mg/dL A fasting glucose from 100-125 mg/dl is considered impaired (pre-diabetes). CA 9.7 8.4-10.2 mg/dL Total Bili 0.6 0.0-1.0 mg/dL AST (GOT) 26 5-37 U/L ALT (GPT) 28 0-40 U/L Protein, Total 6.8 6.5-8.0 g/dL Alb 4.4 3.5-5.0 g/dL Triglyceride 156 H <150 mg/dL Desirable Triglyceride: less than 150 mg/dL Borderline High Triglyceride 150-199 mg/dL High Triglyceride: 200-499 mg/dL Very High Triglyceride: greater than or equal to 5OO mg/dL Cholesterol 146 <200 mg/dL Desirable Cholesterol: less than 200 mg/dL Borderline High Cholesterol: 200-239 mg/dL High Cholesterol: greater than 239 mg/dL LDL Calculated 75 <100 mg/dL Desirable LDL: less than 100 mg/dL Near Optimal/Above Optimal LDL: 110-129 mg/dL Borderline High LDL: 130-159 mg/dL High LDL: 160-189 mg/dL Very High LDL: greater than or equal to 190 mg/dL HDL 40 L >40 mg/dL Desirable HDL: greater than 40 mg/dL Note: This HDL assay may give artificially low results in patients with liver disease. Alk Phos 36 L 39-117 U/L TSH 1.53 0.32-4.0 uIU/mL RUN: 05/18/25 1454 PAGE 1 [facility] [address] [place] [phone] Lineman Apprentice: Poncho Valenzuela M.D. Specimen Inquiry Name: Yazan Mars Age/Sex: 65/M : 1960 Unit#: [id number] Attend Dr: Poncho Herbert MD Re05/08/25 Status: DEP REF Location: [facility] Disch: SPEC : [id number] ABIGAIL: 05/08/25 STATUS: COMP REQ : [id number] RECD: 05/08/[address] [facility] [address]: Poncho Herbert MD COMP: 05/08/25 ENTERED: 05/08/[address] [facility] [address]: ORDERED: UA Test Result Flag Reference Ur Color Yellow Ur Appear Clear PH 7.5 5.0-9.0 Ur Glu Negative Negative mg/dL Urine Blood Negative Negative Spec [place] Ur 1.015 1.005-1.025 Urine Protein Negative Neg-Trace mg/dL Urine Ketones Negative Negative mg/dL Ur Nitrite Negative Negative Ur Atul Esterase Negative Negative END OF REPORT Coding Level of Care Code Tele Est Pt Level 2 (02536) Complex EM visit Add On G2211 Diagnoses Mixed hyperlipidemia E78.2 Hyperlipidemia type: mixed hyperlipidemia Low HDL (under 40) E78.6 Elevated fasting blood sugar R73.01 Mild anemia D64.9 Low serum alkaline phosphatase R74.8 Assessment & Plan Assessment & Plan (1) Hyperlipidemia: Code(s): E78.5 - Hyperlipidemia, unspecified Category: Medical Qualifiers: Hyperlipidemia type: mixed hyperlipidemia Qualified Code(s): E78.2 - Mixed hyperlipidemia (2) Low HDL (under 40): Code(s): E78.6 - Lipoprotein deficiency Category: Medical (3) Elevated fasting blood sugar: Code(s): R73.01 - Impaired fasting glucose Category: Medical (4) Mild anemia: Code(s): D64.9 - Anemia, unspecified Category: Medical (5) Low serum alkaline phosphatase: Code(s): R74.8 - Abnormal levels of other serum enzymes Category: Medical Plan .
== END 2025-05-18 15:37 | disposition home or self-care (01) ==
LOC: HO.HMCFM 15:07
PROVIDERS: PCP Family Medicine; Visit Provider Nurse Practitioner Family
DX: E78.2 Mixed hyperlipidemia (principal); E78.6 Lipoprotein deficiency; R73.01 Impaired fasting glucose; D64.9 Anemia, unspecified; R74.8 Abnormal levels of other serum enzymes

== ENCOUNTER 2025-07-07 09:24 | Outpatient (AMB) | payer OTHER, SELFPAY ==
--- NOTE | 2025-07-07 09:30 | MHC.OFFVIS ---
Intake Visit Reasons: cysto/US Intake Note: Patient is Present for a cystoscopy/US 04/11 Retroperitoneal US Urology Medication: Tadalafil Antibiotic Allergies:None Blood Thinners: none Inventory Control Planner Required: No Allergies No Known Allergies Allergy (Verified 07/07/25 09:31) HPI Comments Details: 07/07/25--Yazna is a 65-year-old male here for follow-up monitoring for ED and BPH symptoms as well as microscopic hematuria. He had imaging done, US retroperitoneum March 2025 kidneys are within normal limits, the estimated prostate volume 29 mL. PSA screening 05/08/2025 is 0.28 ng/mL. Plan will be to continue Cialis. History of Present Illness The patient is a 65-year-old male presenting for follow-up monitoring of erectile dysfunction, benign prostatic hyperplasia symptoms, and microscopic hematuria. The patient has been experiencing erectile dysfunction, which has been managed with Cialis, and he reports that it is working fine. He has been advised to continue with the medication, and refills will be provided. The patient also reports symptoms of benign prostatic hyperplasia, including nocturia, where he gets up at least once at night to urinate, which is considered normal given his water intake during the day. The prostate examination revealed normal findings, and the estimated prostate volume was 39 mL. Microscopic hematuria was noted, but imaging of the kidneys, bladder, and prostate showed normal results, with kidneys within normal limits and a small cyst in the kidney and liver. The patient also complained of hematospermia, he was reassured that the presence of blood might be due to irritation or inflammation in the prostate, especially after intercourse, and is not usually worrisome. If associated with pain, it may be due to infection. The patient denies pain with ejaculation. 20 minutes spent in review of records pertaining to this visit and including [id number] discussion with the patient and documentation of this visit. Results - 04/11/25--Ultrasound retroperitoneum: Kidneys within normal limits, small cyst in kidney and liver - Prostate volume: 39 mL - PSA screenin.28 ng/mL - office cystoscopy today, prostate nonobstructive no suspicious bladder lesions urethral within normal limits. Plan 1. Erectile Dysfunction - Continue Cialis as it is effective; refills will be provided. 2. Benign Prostatic Hyperplasia - Prostate examination showed normal findings; continue monitoring symptoms. 3. Microscopic Hematuria - Imaging showed normal kidneys and prostate; 4. Hematospermia. Occasional. patient reassure- possible inflammation in the prostate. The patient denies pain with ejaculation. 02/27/25-- - The patient is a 64-year-old male presenting for a 9-month follow-up and management of erectile dysfunction. - The patient has been on Cialis for erectile dysfunction, taking it daily with good results. - Microscopic hematuria was noted during the visit, which had been observed previously. - The patient has no history of burning during urination or signs of infection. - Preventative care includes a PSA blood test to be conducted before the next visit. Urinary Symptoms Review - Microscopic hematuria observed, no gross hematuria reported. - No burning sensation during urination reported. Plan - Continue Cialis for erectile dysfunction management. - Order an ultrasound to evaluate the kidneys and bladder due to microscopic hematuria. - Consisder cystoscopy on follow up. - Conduct a PSA blood test as part of screening. 04/11/24--Yazan is a 64-year-old male who is here for evaluation due to low testosterone and ED. he was initially evaluated on 02/10/2024 and prescribed Cialis 5 mg daily. Follow-up testosterone levels discussed. The patient states he has noticed improvement in erectile function on daily Cialis. At this time we will hold on further therapy including testosterone replacement therapy. 02/10/2024--Yazan is a 63-year-old male who is here for evaluation due to low testosterone. He states that he has had decreased energy. He has had concerns regarding erectile function as well. He has used Cialis 20 mg half a tab p.r.n. which has been helpful. I have reviewed lab work total testosterone and free testosterone are low. I have discussed repeating the testosterone levels as well as additional hormone levels, FSH, LH, prolactin, estradiol. I have discussed daily Cialis 5 mg to see if this therapy would the a better management for ED. 12/08/2023--total testosterone--166, free testosterone -30.9 04/21/23--PSA--0.25 [facility] Medical History Erectile dysfunction Arthritis Hypertriglyceridemia Hyperlipidemia HTN (hypertension) Surgical History History of esophagogastroduodenoscopy (EGD) History of surgery on right wrist (~1988) H/O colonoscopy (~2023) History of surgery on arm History of hernia surgery History of knee surgery History of back surgery Family History Father No problems noted. Mother No problems noted. 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 Information consent for procedure given to the patient. Discussed technical aspects, risks, benefits and alternatives in full. Addressed all of the patient's questions and concerns regarding the procedure. The patient demonstrated knowledge and understanding. They wish to proceed with this procedure. Preparation The patient was prepped in the usual manner. A support services specialist was present and in the room. Genitalia was prepped with betadine solution in a sterile manner. Lidocaine Jelly 2% was placed into the urethra and 16Fr flexible Olympus cystoscope was inserted into the meatus after adequate lubrication. Procedure Time out per protocol performed. The flexible cystoscope is passed transurethrally: The bladder was inspected in its entirety with utilization retroflexion displaying: Tumor(s): no suspicious bladder lesions visualized Trabeculation: Mucosal Erthema: Orifices: normal shape and position Urethra: normal Cystoscopy findings: prostatic urethra non obstructive bulbous urethra WNL, no suspicious bladder lesions visualized [id number] DISPOSABLE SCOPE URO-G FLEXIBLE SCOPE Procedure code (CPT) selection complete Office Meds lidocaine HCl 2 % mucosal jelly in applicator Performing Provider: Mandeep Muse MD [facility] Administered by: Becca Reed RN on 07/07/25 09:54 Dose Route Admin Location Dispensed Lot Number Expiration Date NDC Disciplinary Hearing Officer 20 mL intra-urethral 20 mL phenazopyridine 200 mg tablet Performing Provider: Mandeep Muse MD Performing [facility] Administered by: Becca Reed RN on 07/07/25 09:54 Dose Route Admin Location Dispensed Lot Number Expiration Date NDC Disciplinary Hearing Officer 200 mg PO 1 tab Results AMB Urinalysis, Automated UA Leukoctes 0 Atul/uL Last Edit by Crystal Foster on 07/07/25 12:46 UA Nitrite Negative Last Edit by Crystal Foster on 07/07/25 12:46 UA Urobilinogen 0.2 mg/dL Last Edit by Crystal Foster on 07/07/25 12:46 UA Protein 0 mg/dL Last Edit by Crystal Foster on 07/07/25 12:46 UA pH 6.0 Last Edit by Crystal Foster on 07/07/25 12:46 UA Blood 0 [place]/uL Last Edit by Crystal Foster on 07/07/25 12:46 UA Specific [place] 1.015 Last Edit by Crystal Foster on 07/07/25 12:46 UA Ketone Negative Last Edit by Crystal Foster on 07/07/25 12:46 UA Bilirubin 0 mg/dL Last Edit by Crystal Foster on 07/07/25 12:46 UA Glucose 0 mg/dL Last Edit by Crystal Foster on 07/07/25 12:46 Results Reviewed Results Reviewed: Laboratory Last Values Urine pH (Auto) 6.0 07/07/25 12:41 Specific [place] (Auto) 1.015 07/07/25 12:41 Urine Protein (Auto) 0 mg/dL 07/07/25 12:41 Glucose (UA)(Auto) 0 mg/dL 07/07/25 12:41 Urine Ketones (Auto) Negative 07/07/25 12:41 Urine Blood (Auto) 0 [place]/uL 07/07/25 12:41 Urine Nitrite (Auto) Negative 07/07/25 12:41 Urine Bilirubin (Auto) 0 mg/dL 07/07/25 12:41 Urine Urobilinogen (Auto) 0.2 mg/dL 07/07/25 12:41 Leukocyte Esterase (Auto) 0 Atul/uL 07/07/25 12:41 Date of Service: 04/11/25 EXAMINATION: US RETROPERITONEUM HISTORY: Z12.5 - Encounter for screening for malignant neoplasm of prostate TECHNIQUE: Real-time grayscale ultrasound imaging of the kidneys was performed and images were reviewed. COMPARISON: Correlation is made with an MRI of the abdomen dated 06/08/2023. FINDINGS: Right kidney: The right kidney measures 11.7 x 4.6 x 5.3 cm. Renal parenchymal echotexture and thickness are normal. There is a lower pole cyst measuring 1.3 x 0.8 x 1.6 cm. There is no hydronephrosis or renal calculi. Left Kidney: The left kidney measures 11.7 x 6.0 x 4.3 cm. Renal parenchymal echotexture and thickness are normal. There are no masses. There is no hydronephrosis or renal calculi. The urinary bladder is unremarkable. Bilateral ureteral jets are identified. Before voiding, the urinary bladder measured 10.5 x 7.4 x 8.8 cm, for an estimated volume of 358 mL. After voiding, the urinary bladder measured 3.7 x 2.2 x 4.0 cm, for an estimated volume of 18 mL. The prostate measures 4.3 x 2.8 x 4.7 cm, for an estimated volume of 29 mL. Incidental note is made of a 1.9 x 1.7 x 1.6 cm cyst in the right hepatic lobe. IMPRESSION: 1. 1.3 x 0.8 x 1.6 cm right renal cyst. Otherwise unremarkable retroperitoneal ultrasound. 2. Post void bladder residual of 18 mL. 3. Prostate volume of 29 mL. Assessment & Plan Assessment & Plan (1) Hypogonadism in male: Code(s): E29.1 - Testicular hypofunction Category: Medical (2) Erectile dysfunction: Code(s): N52.9 - Male erectile dysfunction, unspecified Category: Medical (3) Screening for prostate cancer: Code(s): Z12.5 - Encounter for screening for malignant neoplasm of prostate Category: Medical (4) Microscopic hematuria: Code(s): R31.29 - Other microscopic hematuria Category: Medical (5) Hematospermia: Code(s): R36.1 - Hematospermia Category: Medical Plan Plan 1. Erectile Dysfunction - Continue Cialis as it is effective; refills will be provided. 2. Benign Prostatic Hyperplasia - Prostate examination showed normal findings; continue monitoring symptoms. 3. Microscopic Hematuria - Imaging showed normal kidneys and prostate; 4. Hematospermia. Occasional. patient reassure- possible inflammation in the prostate. The patient denies pain with ejaculation. Orders: Orders AMB Cystoscopy 07/07/25 R31.29 - Other microscopic hematuria AMB Urinalysis Automated 07/07/25 R35.0 - Frequency of micturition Patient Instructions: The patient had an opportunity to ask questions regarding treatment plan. The patient expressed understanding and agreement with the above treatment plan. The patient is aware they should contact our office by phone for worsening of their current condition or the appearance of new symptoms. Compliance is encouraged with any medications and followup testing that is ordered. It is a privilege to be allowed the opportunity to participate in the urologic care of your patient. If you have any questions or concerns regarding treatment for the above conditions please do not hesitate to contact me. The office telephone contact is [phone]. This note is constructed in part using voice recognition software. While every effort has been made to ensure accuracy home health outreach coordinator errors may have been included. Yours sincerely, Mandeep Muse MD Scribe Plan - Not visible on output: Patient was informed and verbally consented to the use of an ambient scribe for clinic note documentation during this visit. Coding Level of Care Code Est Pt Level 3 (68861) Complex EM visit Add On G2211 Diagnoses Hypogonadism in male E29.1 Erectile dysfunction N52.9 Screening for prostate cancer Z12.5 Microscopic hematuria R31.29 Hematospermia R36.1 CPT Codes Cystoscopy - CPT: [id number] ([id number])
== END 2025-07-07 10:34 | disposition home or self-care (01) ==
LOC: HO.HUSH 09:25
PROVIDERS: PCP Family Medicine; Visit Provider Urology
DX: R35.0 Frequency of micturition (principal); R31.29 Other microscopic hematuria
CPT/HCPCS: 52000

== ENCOUNTER → 2025-07-07 09:24 | Outpatient (BNVA) | payer OTHER, SELFPAY | PROVIDERS: PCP Family Medicine; Visit Provider Urology | DX: R35.0 Frequency of micturition (principal); R31.29 Other microscopic hematuria; N52.9 Male erectile dysfunction, unspecified; R36.1 Hematospermia; E29.1 Testicular hypofunction; Z12.5 Encounter for screening for malignant neoplasm of prostate | CPT/HCPCS: 52000; 81003 ==